=== PATIENT | male | born 1945 | race Caucasian/White ===

== ENCOUNTER 2017-11-15 19:12 | Inpatient (IN) | payer MEDICARE, BC ==
[2017-11-15] MEDS ORDERED: RX INFO: IV CONTRAST WAS GIVEN 1 EACH MISC MISCELLANE PRN (19:45)
[2017-11-15] MEDS ORDERED: SODIUM CHLORIDE 0.9% 500 ML IV STA (19:45)
[2017-11-15 19:59] LABS: Basophils # (A) 0.1 k/uL (0-0.2); Basophils % (A) 1 %; Eosinophils # (A) 0.3 k/uL (0-0.7); Eosinophils % (A) 2 %; HCT 46.3 % (39.0-53.0); HGB 16.4 gm/dL (13.0-17.5); Lymphocytes # (A) 2.6 k/uL (1.0-4.8); Lymphocytes % (A) 18 %; MCH 31.2 pg (25.0-35.0); MCHC 35.4 g/dL (31.0-37.0); Mean Platelet Volume 7.1; Monocytes # (A) 0.6 k/uL (0-1.0); Monocytes % (A) 4 %; Neutrophils # (A) 11.1 k/uL (1.3-7.7); Neutrophils % (A) 75 %; Platelet Count 210 k/uL (150-450); RBC 5.27 m/uL (4.30-5.90); RDW 13.3 % (11.5-15.5); WBC 14.9 k/uL (3.8-10.6)
[2017-11-15 20:08] LABS: Albumin 4.7 g/dL (3.5-5.0); Calcium 10.2 mg/dL (8.4-10.2); Potassium 4.4 mmol/L (3.5-5.1); Total Bilirubin 0.6 mg/dL (0.2-1.3)
[2017-11-15] MEDS ORDERED: ONDANSETRON 4 MG/2 ML VIAL IVP STA (20:12)
[2017-11-15] MEDS ORDERED: MORPHINE SULFATE 4 MG/ML SYRINGE IVP STA ×2 (20:12→21:18)
[2017-11-15 20:20] LABS: INR 1.1 (<1.2); Partial Thromboplastin Time 23.2 sec (22.0-30.0); Prothrombin Time 10.7 sec (9.0-12.0)
--- NOTE | 2017-11-15 20:27 | ED ---
Abdominal Pain HPI - General Source: patient, RN notes reviewed Mode of arrival: wheelchair Limitations: no limitations <Lencho Briones - Last Filed: 11/15/17 21:31> <Nicolas Doshi - Last Filed: 11/16/17 06:53> - General Chief Complaint: Abdominal Pain Stated Complaint: Abd Pain Time Seen by Provider: 11/15/17 19:38 - History of Present Illness Initial Comments: This a 71-year-old male presents emergency Department chief complaint abdominal pain. Patient states pain started around 2:30 this afternoon. Patient states it's in his mid abdomen is sharp and pressure-like in nature. Patient does admit that he has a history of diverticulitis but this pain feels different. Patient states that he normally has lower abdominal discomfort. Denies any diarrhea, constipation does not to some nausea no vomiting. He denies any associated dysuria, hematuria or increased frequency urination. He has had prior kidney surgery, appendectomy. Patient denies chest pain, shortness breath , fever, chills, headache or dizziness. He states nothing seems to improve his symptoms at this time. He did not try taking any medication from his normal. Patient states he does take Percocet for right foot pain secondary to surgery. ( Lencho Briones) - Related Data Home Medications Medication Instructions Recorded Confirmed Aspirin EC [Ecotrin Low Dose] 81 mg PO DAILY 01/19/16 11/15/17 Atorvastatin [Lipitor] 40 mg PO DAILY 01/19/16 11/15/17 B Complex-Vit C-Vit E-Zinc [Z-Bec] 1 tab PO DAILY 01/19/16 11/15/17 Clopidogrel [Plavix] 75 mg PO MOWEFR 01/19/16 11/15/17 Furosemide [Lasix] 60 mg PO DAILY 01/19/16 11/15/17 Gemfibrozil [Lopid] 600 mg PO BID 01/19/16 11/15/17 Insulin Aspart [NovoLOG 20 units SQ AC-BID 01/19/16 11/15/17 (formulary)] Insulin Glargine [Lantus] 70 units SQ DAILY 01/19/16 11/15/17 Isosorbide Mononitrate ER [Imdur] 30 mg PO DAILY 01/19/16 11/15/17 Lisinopril [Zestril] 5 mg PO DAILY 01/19/16 11/15/17 Metoprolol Tartrate [Lopressor] 25 mg PO BID 01/19/16 11/15/17 Multivitamins, Thera [Multivitamin 1 tab PO DAILY 01/19/16 11/15/17 (formulary)] Zolpidem [Ambien] 10 mg PO HS 01/19/16 11/15/17 metFORMIN HCL [Glucophage] 500 mg PO HS 01/19/16 11/15/17 traZODone HCL [Desyrel] 100 mg PO HS 01/19/16 11/15/17 Allopurinol [Zyloprim] 100 mg PO DAILY 11/15/17 11/15/17 Citalopram Hydrobromide [CeleXA] 40 mg PO DAILY 11/15/17 11/15/17 Allergies Allergy/AdvReac Type Severity Reaction Status Date / Time ciprofloxacin [From Cipro] Allergy Unknown Verified 11/15/17 19:43 ciprofloxacin HCl Allergy Unknown Verified 11/15/17 19:43 [From Cipro] ezetimibe [From Vytorin] Allergy Unknown Verified 11/15/17 19:43 indomethacin [From Indocin] Allergy Unknown Verified 11/15/17 19:43 indomethacin sodium Allergy Unknown Verified 11/15/17 19:43 [From Indocin] lamotrigine [From Lamictal] Allergy Unknown Verified 11/15/17 19:43 simvastatin [From Vytorin] Allergy Unknown Verified 11/15/17 19:43 Review of Systems ROS Other: All systems not noted in ROS Statement are negative. <Lencho Briones - Last Filed: 11/15/17 21:31> ROS Other: All systems not noted in ROS Statement are negative. <Nicolas Doshi - Last Filed: 11/16/17 06:53> ROS Statement: Those systems with pertinent positive or pertinent negative responses have been documented in the HPI. Past Medical History Past Medical History: Coronary Artery Disease (CAD), Chest Pain / Angina, Diabetes Mellitus, Hyperlipidemia, Hypertension, Seizure Disorder Additional Past Medical History / Comment(s): IDDM, last grand mal seizure 2003 , epistaxis. History of Any Multi-Drug Resistant Organisms: None Reported Past Surgical History: Appendectomy, Coronary Bypass/CABG, Heart Catheterization With Stent Additional Past Surgical History / Comment(s): PCI with stents (pt thinks 2 total stents) with last stent placed 03/13/14, angioplasties x 3, 02/19/07 CABG-4 vessel, colonoscopy-normal. Past Anesthesia/Blood Transfusion Reactions: No Reported Reaction Date of Last Stent Placement:: 03/13/14 Past Psychological History: No Psychological Hx Reported Smoking Status: Former smoker Past Alcohol Use History: None Reported Past Drug Use History: None Reported - Past Family History Father Family Medical History: Cancer Additional Family Medical History / Comment(s): Father of leukemia at the age of 67 yrs. Mother Family Medical History: Cancer, Dementia Additional Family Medical History / Comment(s): Mother had retinal cancer. She of dementia at the age of 89yrs. <Lencho Briones - Last Filed: 11/15/17 21:31> General Exam Limitations: no limitations General appearance: alert, in no apparent distress Head exam: Present: atraumatic, normocephalic, normal inspection Eye exam: Present: normal appearance, PERRL, EOMI. Absent: scleral icterus, conjunctival injection, periorbital swelling Neck exam: Present: normal inspection. Absent: tenderness, meningismus, lymphadenopathy Respiratory exam: Present: normal lung sounds bilaterally. Absent: respiratory distress, wheezes, rales, rhonchi, stridor Cardiovascular Exam: Present: regular rate, normal rhythm, normal heart sounds. Absent: systolic murmur, diastolic murmur, rubs, gallop, clicks GI/Abdominal exam: Present: soft, tenderness, normal bowel sounds. Absent: distended, guarding, rebound, rigid Back exam: Absent: CVA tenderness (R), CVA tenderness (L) Skin exam: Present: warm, dry, intact, normal color. Absent: rash <Lencho Briones - Last Filed: 11/15/17 21:31> Vital Signs 11/15/17 11/15/17 19:19 21:44 Temperature 97.7 F Pulse Rate 59 L 54 L Respiratory 16 18 Rate Blood Pressure 188/96 166/70 O2 Sat by Pulse 97 96 Oximetry Medical Decision Making - Lab Data Result diagrams: 11/15/17 19:49 11/15/17 19:49 <Lencho Briones - Last Filed: 11/15/17 21:31> - Lab Data Result diagrams: 11/15/17 19:49 11/15/17 19:49 <Nicolas Doshi - Last Filed: 11/16/17 06:53> - Medical Decision Making 71-year-old male present emergency department for abdominal pain that started today. Patient CT is consistent with partial small bowel obstruction. Patient had minimal improvement with first dose of morphine. Patient will be admitted at this time no current vomiting. Patient lab work reviewed and mild leukocytosis noted. (Lencho Briones) I saw this patient in conjunction with the physician product development assistant. I performed independent history and physical exam. Agree with case management. (Nicolas Doshi) - Lab Data Lab Results 11/15/17 11/15/17 11/15/17 Range/Units 19:49 19:49 19:49 WBC 14.9 H (3.8-10.6) k/uL RBC 5.27 (4.30-5.90) m/uL Hgb 16.4 (13.0-17.5) gm/dL Hct 46.3 (39.0-53.0) % MCV 88.0 (80.0-100.0) fL MCH 31.2 (25.0-35.0) pg MCHC 35.4 (31.0-37.0) g/dL RDW 13.3 (11.5-15.5) % Plt Count 210 (150-450) k/uL Neutrophils % 75 % Lymphocytes % 18 % Monocytes % 4 % Eosinophils % 2 % Basophils % 1 % Neutrophils # 11.1 H (1.3-7.7) k/uL Lymphocytes # 2.6 (1.0-4.8) k/uL Monocytes # 0.6 (0-1.0) k/uL Eosinophils # 0.3 (0-0.7) k/uL Basophils # 0.1 (0-0.2) k/uL PT 10.7 (9.0-12.0) sec INR 1.1 (<1.2) APTT 23.2 (22.0-30.0) sec Sodium 144 (137-145) mmol/L Potassium 4.4 (3.5-5.1) mmol/L Chloride 102 (98-107) mmol/L Carbon Dioxide 28 (22-30) mmol/L Anion Gap 14 mmol/L BUN 36 H (9-20) mg/dL Creatinine 1.10 (0.66-1.25) mg/dL Est GFR (CKD-EPI)AfAm 77 (>60 ml/min/1.73 sqM) Est GFR (CKD-EPI)NonAf 67 (>60 ml/min/1.73 sqM) Glucose 189 H (74-99) mg/dL Plasma Lactic Acid Satinder (0.7-2.0) mmol/L Calcium 10.2 (8.4-10.2) mg/dL Total Bilirubin 0.6 (0.2-1.3) mg/dL AST 53 (17-59) U/L ALT 57 (21-72) U/L Alkaline Phosphatase 76 (38-126) U/L Total Protein 8.0 (6.3-8.2) g/dL Albumin 4.7 (3.5-5.0) g/dL Amylase 53 (30-110) U/L Lipase 115 (23-300) U/L Urine Color Urine Appearance (Clear) Urine pH (5.0-8.0) Ur Specific [place] (1.001-1.035) Urine Protein (Negative) Urine Glucose (UA) (Negative) Urine Ketones (Negative) Urine Blood (Negative) Urine Nitrite (Negative) Urine Bilirubin (Negative) Urine Urobilinogen (<2.0) mg/dL Ur Leukocyte Esterase (Negative) Urine RBC (0-5) /hpf Urine Bacteria (None) /hpf Hyaline Casts (0-2) /lpf 11/15/17 11/15/17 Range/Units 20:13 20:13 WBC (3.8-10.6) k/uL RBC (4.30-5.90) m/uL Hgb (13.0-17.5) gm/dL Hct (39.0-53.0) % MCV (80.0-100.0) fL MCH (25.0-35.0) pg MCHC (31.0-37.0) g/dL RDW (11.5-15.5) % Plt Count (150-450) k/uL Neutrophils % % Lymphocytes % % Monocytes % % Eosinophils % % Basophils % % Neutrophils # (1.3-7.7) k/uL Lymphocytes # (1.0-4.8) k/uL Monocytes # (0-1.0) k/uL Eosinophils # (0-0.7) k/uL Basophils # (0-0.2) k/uL PT (9.0-12.0) sec INR (<1.2) APTT (22.0-30.0) sec Sodium (137-145) mmol/L Potassium (3.5-5.1) mmol/L Chloride (98-107) mmol/L Carbon Dioxide (22-30) mmol/L Anion Gap mmol/L BUN (9-20) mg/dL Creatinine (0.66-1.25) mg/dL Est GFR (CKD-EPI)AfAm (>60 ml/min/1.73 sqM) Est GFR (CKD-EPI)NonAf (>60 ml/min/1.73 sqM) Glucose (74-99) mg/dL Plasma Lactic Acid Satinder 1.8 (0.7-2.0) mmol/L Calcium (8.4-10.2) mg/dL Total Bilirubin (0.2-1.3) mg/dL AST (17-59) U/L ALT (21-72) U/L Alkaline Phosphatase (38-126) U/L Total Protein (6.3-8.2) g/dL Albumin (3.5-5.0) g/dL Amylase (30-110) U/L Lipase (23-300) U/L Urine Color Yellow Urine Appearance Clear (Clear) Urine pH 5.5 (5.0-8.0) Ur Specific [place] 1.009 (1.001-1.035) Urine Protein 1+ H (Negative) Urine Glucose (UA) Negative (Negative) Urine Ketones Negative (Negative) Urine Blood Negative (Negative) Urine Nitrite Negative (Negative) Urine Bilirubin Negative (Negative) Urine Urobilinogen <2.0 (<2.0) mg/dL Ur Leukocyte Esterase Negative (Negative) Urine RBC <1 (0-5) /hpf Urine Bacteria Rare H (None) /hpf Hyaline Casts 5 H (0-2) /lpf Disposition Time of Disposition: 21:27 <Lencho Briones - Last Filed: 11/15/17 21:31> <Nicolas Doshi - Last Filed: 11/16/17 06:53> Clinical Impression: Partial small bowel obstruction, Abdominal pain Disposition: ADMITTED IP TO THIS [facility] Condition: Stable
[2017-11-15 20:29] LABS: Appearance,Urine Clear (Clear); Bacteria,Urine Rare /hpf; Bilirubin,Urine Negative (Negative); Blood,Urine Negative (Negative); Color,Urine Yellow; Glucose,Urine (UA) Negative (Negative); Hyaline Casts,Urine 5 /lpf (0-2); Ketones,Urine Negative (Negative); Leukocyte Esterase,Urine Negative (Negative); Nitrite,Urine Negative (Negative); PH, Urine 5.5 (5.0-8.0); Protein,Urine 1+ (Negative); RBC,Urine <1 /hpf (0-5); Specific Gravity,Urine 1.009 (1.001-1.035); Urobilinogen,Urine <2.0 mg/dL (<2.0)
--- NOTE | 2017-11-15 21:07 | CT ---
EXAMINATION TYPE: CT abdomen pelvis w con DATE OF EXAM: 11/15/2017 COMPARISON: NONE HISTORY: Abd pain and nausea. CT DLP: 1570 mGycm, Automated Exposure Control for Dose Reduction was Utilized. CONTRAST: CT scan of the abdomen and pelvis is performed without oral but with IV Contrast, patient injected wi th 100ml mL of Omnipaque 300. FINDINGS: LUNG BASES: There is dense coronary artery calcification and/or stent in the RCA distribution. There is calcification at the level of mitral valve. LIVER/GB: Liver is diffusely low dense consistent with fatty infiltration. Contracted gallbladder is present. PANCREAS: No significant abnormality is seen. SPLEEN: No significant abnormality is seen. ADRENALS: No significant abnormality is seen. KIDNEYS: There is simple appearing 2.1 cm cyst anteriorly upper pole of the right kidney. There is re troaortic left renal vein which is normal variant BOWEL: Evaluation of bowel is suboptimal secondary to lack of enteric contrast. There is no suspiciou s dilatation of stomach or duodenal sweep. There are fluid-filled prominent small bowel loops in the left midabdomen. Bowel loops are mildly dilated up to 3.0 cm. There are small bowel feces sign in the midabdomen. There is gradual transition to nondistended small bowel loops in the right lower quadran t. Surgical sutures from appendectomy are seen at this level. Fecal material is seen in nondistended colon. There are diverticula in the sigmoid colon. There is no convincing evidence for acute divertic ulitis. There is mild haziness in the vasa recta of the left mid to upper abdomen. PROSTATE/SEMINAL VESICLES: Seminal vesicles are lobulated and slightly prominent bilaterally. A few s cattered pelvic phleboliths are seen. LYMPH NODES: No greater than 1cm abdominal or pelvic lymph nodes are appreciated. OSSEOUS STRUCTURES: There is mild multilevel spurring in the spine. OTHER: There is fairly severe atherosclerotic change of the infrarenal abdominal aorta extending into branch vessels IMPRESSION: CT findings are consistent with partial mid small bowel obstruction as there are prominen t and slightly dilated jejunal loops in the left abdomen with small bowel feces sign. No suspicious s tomach or duodenal dilatation currently.
[2017-11-15] MEDS ORDERED: NALOXONE 0.4 MG/ML 1 ML VIAL IV PRN (21:28)
[2017-11-15] MEDS ORDERED: MORPHINE SULFATE 4 MG/ML SYRINGE IV PRN (21:28)
[2017-11-15] MEDS: SODIUM CHLORIDE 0.9% 1,000 ML IV SCH (21:46)
[2017-11-15] MEDS ORDERED: LIDOCAINE URO-JET JELLY 2% 5 ML KIT URETHRAL ONE (22:24)
[2017-11-16 00:42] VITALS: BMI 32.5
[2017-11-16] MEDS ORDERED: MD COMMUNICATION TO PHARMACY 1 EACH MISC PO PRN (00:47)
[2017-11-16] MEDS ORDERED: HYDROmorphone 0.5 MG/0.5 ML SYRINGE IVP ONE (01:00)
[2017-11-16] MEDS: ONDANSETRON 4 MG/2 ML VIAL IVP PRN ×2 (02:14→14:52)
[2017-11-16] MEDS ORDERED: ACETAMINOPHEN IV (For NPO) 1,000 MG in EMPTY BAG 1 BAG IVPB STA ×2 (02:24→02:44)
[2017-11-16] MEDS: MORPHINE SULFATE 4 MG/ML SYRINGE IV PRN ×2 (02:47→20:38)
[2017-11-16 05:22] LABS: Glucose,Whole Blood 151 mg/dL (75-99)
[2017-11-16] MEDS: PANTOPRAZOLE 40 MG/10 ML VIAL IV SCH (07:57)
[2017-11-16] MEDS ORDERED: metroNIDAZOLE-NS PMX 500 MG in SALINE 100 100ML.BAG IVPB ONE (09:47)
[2017-11-16] MEDS ORDERED: ceFAZolin IN SWFI 2 GM/20 ML SYRINGE IVP ONE (09:47)
--- NOTE | 2017-11-16 09:47 | P.GSCN ---
History of Present Illness Consult date: 11/16/17 Reason for Consult: Small bowel obstruction History of present illness: The patient's a 71-year-old man who had a sudden onset of pain yesterday afternoon. He's never had anything like this in the past. He's had some episodes of diverticulitis but this is different. He's had nausea and dry heaves. He had an NG tube placed in the emergency department and does not feel any better. Complaining of diffuse abdominal pain. His previous abdominal surgeries include a open appendectomy and a repair of a incisional hernia. He has some occasional constipation. Denies diarrhea. Denies blood in the stools or dark tarry stools. Review of Systems All systems: negative - Musculoskeletal Musculoskeleta Comment(s): Had recent right foot surgery and is nonweightbearing until Monday Past Medical History Past Medical History: Coronary Artery Disease (CAD), Chest Pain / Angina, Diabetes Mellitus, Hyperlipidemia, Hypertension, Seizure Disorder Additional Past Medical History / Comment(s): IDDM, last grand mal seizure 2003 , epistaxis. History of Any Multi-Drug Resistant Organisms: None Reported Past Surgical History: Appendectomy, Coronary Bypass/CABG, Heart Catheterization With Stent Additional Past Surgical History / Comment(s): PCI with stents (pt thinks 2 total stents) with last stent placed 03/13/14, angioplasties x 3, 02/19/07 CABG-4 vessel, colonoscopy-normal. Past Anesthesia/Blood Transfusion Reactions: No Reported Reaction Date of Last Stent Placement:: 03/13/14 Past Psychological History: No Psychological Hx Reported Additional Psychological History / Comment(s): Pt resides with his spouse. He uses no assistive device. He drives. Smoking Status: Former smoker Past Alcohol Use History: None Reported Additional Past Alcohol Use History / Comment(s): Pt states he quit smoking in 2003. He had started smoking in 1965. Past Drug Use History: None Reported - Past Family History Father Family Medical History: Cancer Additional Family Medical History / Comment(s): Father of leukemia at the age of 67 yrs. Mother Family Medical History: Cancer, Dementia Additional Family Medical History / Comment(s): Mother had retinal cancer. She of dementia at the age of 89yrs. Medications and Allergies Home Medications Medication Instructions Recorded Confirmed Type Aspirin EC [Ecotrin Low Dose] 81 mg PO DAILY 01/19/16 11/15/17 History Atorvastatin [Lipitor] 40 mg PO DAILY 01/19/16 11/15/17 History B Complex-Vit C-Vit E-Zinc [Z-Bec] 1 tab PO DAILY 01/19/16 11/15/17 History Clopidogrel [Plavix] 75 mg PO MOWEFR 01/19/16 11/15/17 History Furosemide [Lasix] 60 mg PO DAILY 01/19/16 11/15/17 History Gemfibrozil [Lopid] 600 mg PO BID 01/19/16 11/15/17 History Insulin Aspart [NovoLOG 20 units SQ AC-BID 01/19/16 11/15/17 History (formulary)] Insulin Glargine [Lantus] 70 units SQ DAILY 01/19/16 11/15/17 History Isosorbide Mononitrate ER [Imdur] 30 mg PO DAILY 01/19/16 11/15/17 History Lisinopril [Zestril] 5 mg PO DAILY 01/19/16 11/15/17 History Metoprolol Tartrate [Lopressor] 25 mg PO BID 01/19/16 11/15/17 History Multivitamins, Thera [Multivitamin 1 tab PO DAILY 01/19/16 11/15/17 History (formulary)] Zolpidem [Ambien] 10 mg PO HS 01/19/16 11/15/17 History metFORMIN HCL [Glucophage] 500 mg PO HS 01/19/16 11/15/17 History traZODone HCL [Desyrel] 100 mg PO HS 01/19/16 11/15/17 History Allopurinol [Zyloprim] 100 mg PO DAILY 11/15/17 11/15/17 History Citalopram Hydrobromide [CeleXA] 40 mg PO DAILY 11/15/17 11/15/17 History Allergies Allergy/AdvReac Type Severity Reaction Status Date / Time ciprofloxacin [From Cipro] Allergy Unknown Verified 11/15/17 19:43 ciprofloxacin HCl Allergy Unknown Verified 11/15/17 19:43 [From Cipro] ezetimibe [From Vytorin] Allergy Unknown Verified 11/15/17 19:43 indomethacin [From Indocin] Allergy Unknown Verified 11/15/17 19:43 indomethacin sodium Allergy Unknown Verified 11/15/17 19:43 [From Indocin] lamotrigine [From Lamictal] Allergy Unknown Verified 11/15/17 19:43 simvastatin [From Vytorin] Allergy Unknown Verified 11/15/17 19:43 Surgical - Exam Osteopathic Statement: *. No significant issues noted on an osteopathic structural exam other than those noted in the History and Physical/Consult. Vital Signs Temp Pulse Resp BP Pulse Ox 97.7 F 59 L 16 188/96 97 11/15/17 19:19 11/15/17 19:19 11/15/17 19:19 11/15/17 19:19 11/15/17 19:19 - General Appears uncomfortable well developed, well nourished - Eyes normal ocular movement - ENT normal mucosa - Neck trachea midline lymphadenopathy: absent - Respiratory normal respiratory effort, clear to auscultation - Cardiovascular Rhythm: regular - Abdomen Abdomen: tender (Diffuse tenderness), guarding (Mild generalized voluntary guarding), no rebound, distended (Tympanitic) - Musculoskeletal Scar on his right foot which is healing well Results - Labs 11/15/17 19:49 11/15/17 19:49 Abnormal Lab Results - Last 24 Hours (Table) 11/15/17 11/15/17 11/15/17 Range/Units 19:49 19:49 20:13 WBC 14.9 H (3.8-10.6) k/uL Neutrophils # 11.1 H (1.3-7.7) k/uL BUN 36 H (9-20) mg/dL Glucose 189 H (74-99) mg/dL POC Glucose (mg/dL) (75-99) mg/dL Urine Protein 1+ H (Negative) Urine Bacteria Rare H (None) /hpf Hyaline Casts 5 H (0-2) /lpf 11/16/17 Range/Units 04:59 WBC (3.8-10.6) k/uL Neutrophils # (1.3-7.7) k/uL BUN (9-20) mg/dL Glucose (74-99) mg/dL POC Glucose (mg/dL) 151 H (75-99) mg/dL Urine Protein (Negative) Urine Bacteria (None) /hpf Hyaline Casts (0-2) /lpf Diabetes panel 11/15/17 Range/Units 19:49 Sodium 144 (137-145) mmol/L Potassium 4.4 (3.5-5.1) mmol/L Chloride 102 (98-107) mmol/L Carbon Dioxide 28 (22-30) mmol/L BUN 36 H (9-20) mg/dL Creatinine 1.10 (0.66-1.25) mg/dL Glucose 189 H (74-99) mg/dL Calcium 10.2 (8.4-10.2) mg/dL AST 53 (17-59) U/L ALT 57 (21-72) U/L Alkaline Phosphatase 76 (38-126) U/L Total Protein 8.0 (6.3-8.2) g/dL Albumin 4.7 (3.5-5.0) g/dL Calcium panel 11/15/17 Range/Units 19:49 Calcium 10.2 (8.4-10.2) mg/dL Albumin 4.7 (3.5-5.0) g/dL Pituitary panel 11/15/17 Range/Units 19:49 Sodium 144 (137-145) mmol/L Potassium 4.4 (3.5-5.1) mmol/L Chloride 102 (98-107) mmol/L Carbon Dioxide 28 (22-30) mmol/L BUN 36 H (9-20) mg/dL Creatinine 1.10 (0.66-1.25) mg/dL Glucose 189 H (74-99) mg/dL Calcium 10.2 (8.4-10.2) mg/dL Adrenal panel 11/15/17 Range/Units 19:49 Sodium 144 (137-145) mmol/L Potassium 4.4 (3.5-5.1) mmol/L Chloride 102 (98-107) mmol/L Carbon Dioxide 28 (22-30) mmol/L BUN 36 H (9-20) mg/dL Creatinine 1.10 (0.66-1.25) mg/dL Glucose 189 H (74-99) mg/dL Calcium 10.2 (8.4-10.2) mg/dL Total Bilirubin 0.6 (0.2-1.3) mg/dL AST 53 (17-59) U/L ALT 57 (21-72) U/L Alkaline Phosphatase 76 (38-126) U/L Total Protein 8.0 (6.3-8.2) g/dL Albumin 4.7 (3.5-5.0) g/dL - Imaging CT scan - abdomen: report reviewed, image reviewed Assessment and Plan (1) Small bowel obstruction Current Visit: Yes Status: Acute Code(s): K56.609 - UNSP INTESTNL OBST, UNSP TO PARTIAL VERSUS COMPLETE OBST SNOMED Code(s): 487575582 (2) Abdominal pain Current Visit: Yes Status: Acute Code(s): R10.9 - UNSPECIFIED ABDOMINAL PAIN SNOMED Code(s): 74880694 (3) Platelet dysfunction due to drugs Current Visit: Yes Status: Acute Code(s): D69.59 - OTHER SECONDARY THROMBOCYTOPENIA; T50.905A - ADVERSE EFFECT OF UNSP DRUG/MEDS/BIOL SUBST, INIT SNOMED Code(s): 97100935 (4) History of coronary artery disease Current Visit: Yes Status: Acute Code(s): Z86.79 - PERSONAL HISTORY OF OTHER DISEASES OF THE CIRCULATORY SYSTEM SNOMED Code(s): 143430969 (5) Diabetes Current Visit: Yes Status: Acute Code(s): E11.9 - TYPE 2 DIABETES MELLITUS WITHOUT COMPLICATIONS SNOMED Code(s): 98703499 (6) Seizure disorder Current Visit: Yes Status: Acute Code(s): G40.909 - EPILEPSY, UNSP, NOT INTRACTABLE, WITHOUT STATUS EPILEPTICUS SNOMED Code(s): 693375164 Plan: The patient has significant abdominal discomfort and has had no relief with the NG tube. Therefore I feel he needs to go to the OR for exploratory laparotomy. We will give him platelets due to platelet dysfunction from him taking the Plavix and aspirin. The procedure risk and complications were discussed. Questions were encouraged and answered. We'll do that for him today.
[2017-11-16] MEDS ORDERED: INSULIN ASPART 100 UNIT/ML 1 ML 10 ML VIAL SQ SCH (10:00)
--- NOTE | 2017-11-16 10:13 | XR ---
EXAMINATION TYPE: XR chest 1V portable DATE OF EXAM: 11/16/2017 COMPARISON: Prior chest x-ray 01/19/2016 HISTORY: Preop clearance TECHNIQUE: Single frontal view of the chest is obtained. FINDINGS: Patient is rotated and post median sternotomy. Heart size is likely stable. For difference s in technique. NG tube has been placed in the interval, distal tip is overlying the stomach. No evid ent airspace disease, pneumothorax, or pleural effusion. IMPRESSION: No acute process.
[2017-11-16 11:59] LABS: Glucose,Whole Blood 156 mg/dL (75-99)
[2017-11-16] MEDS ORDERED: IV FLUID CONTINUATION 1,000 ML IV ONE (14:35)
[2017-11-16] MEDS ORDERED: ROCURONIUM BROMIDE 10 MG/ML 10 ML VIAL IV ONE (16:53)
[2017-11-16] MEDS ORDERED: fentaNYL (PF) 50 MCG/ML 2 ML AMP ONE (16:53)
[2017-11-16] MEDS ORDERED: NEOSTIGMINE 1 MG/ML 10 ML VIAL ONE (16:53)
[2017-11-16] MEDS ORDERED: MORPHINE SULFATE 10 MG/ML SYRINGE ONE (16:53)
[2017-11-16] MEDS ORDERED: ETOMIDATE 2 MG/ML 10 ML VIAL ONE (16:53)
[2017-11-16] MEDS ORDERED: MIDAZOLAM 2 MG/2 ML VIAL ONE (16:53)
[2017-11-16] MEDS ORDERED: GLYCOPYRROLATE 0.2 MG/ML 2 ML VIAL ONE (16:53)
[2017-11-16] MEDS ORDERED: METOPROLOL TARTRATE 5 MG/5 ML VIAL IVP ONE (16:53)
[2017-11-16] MEDS ORDERED: SUCCINYLCHOLINE CHLORIDE 100 MG/5 ML SYR IV ONE (16:53)
[2017-11-16] MEDS ORDERED: LIDOCAINE 1%-EPI 1:100,000 30 ML VIAL SQ ONE (17:17)
[2017-11-16] MEDS ORDERED: BUPIVACAINE (PF) 0.5% 30 ML VIAL SQ ONE (17:18)
[2017-11-16] MEDS ORDERED: LACTATED RINGERS 1,000 ML IV ONE (17:19)
[2017-11-16] MEDS: INSULIN ASPART 100 UNIT/ML 1 ML 10 ML VIAL SQ SCH ×2 (17:43→20:50)
--- NOTE | 2017-11-16 17:44 | HP ---
HISTORY AND PHYSICAL CHIEF COMPLAINT: Abdominal pain and vomiting. HISTORY OF PRESENT ILLNESS: This 71-year-old gentleman with a past medical history of multiple medical issues with CAD, history of diabetes, hypertension, hyperlipidemia, seizure disorder, history of CAD, CABG and stent being followed by in the outpatient setting was admitted to [facility] with complaints of abdominal pain. The pain was sharp and pressure like type of pain. The patient had history of diverticulitis and previous abdominal surgery also. Because of lack of improvement in pain, patient came to [facility] and was admitted for evaluation and treatment. NG suction was noted. Despite NG suction, the pain did not improved. Dr. Almaraz evaluated the patient and planned for surgery at this time. There is no history of fever, rigors. No history of headache, loss of consciousness or seizures. The previous appears to be excellent. PAST MEDICAL HISTORY: CAD, history of diabetes mellitus type 2, hypertension, hyperlipidemia, seizure disorder, history [place] seizures, CAD, CABG, stent. MEDICATIONS: Prior to admission home medications are: 1. Ambien 10 mg q.h.s. 2. Celexa 40 mg p.o. daily. 3. Desyrel 100 mg p.o. q.h.s. 4. Multivitamins 1 p.o. daily. 5. Lantus 70 units subcu daily. 6. NovoLog 20 units a.c. b.i.d. 7. Lasix 60 mg p.o. daily. 8. Glucophage 500 mg b.i.d. 9. Lopressor 25 mg b.i.d. 10.Zestril 5 mg p.o. daily. 11.Imdur 30 mg p.o. 12.Lopid 600 mg p.o. b.i.d. 13.Plavix 75 mg Monday, Monday and Monday. 14.Zyloprim 100 mg p.o. daily. 16.Lipitor 40 mg. 17.Ecotrin 81 mg p.o. daily. ALLERGIES: CIPRO, VYTORIN, INDOCIN, LAMICTAL. SOCIAL HISTORY: History of smoking. No history of current smoking or alcohol intake. FAMILY HISTORY: Leukemia in the family. REVIEW OF SYSTEMS: ENT: No diminished hearing or vision. CARDIOVASCULAR: No angina. RESPIRATORY: No cough or hemoptysis. GI: As mentioned earlier. : No dysuria. NERVOUS SYSTEM: No numbness, weakness. ALLERGY/IMMUNOLOGY: No history of asthma. MUSCULOSKELETAL: As mentioned earlier. HEMATOLOGY: No history of anemia. ENDOCRINE: Diabetes. CONSTITUTIONAL: As mentioned. DERMATOLOGY: Negative. RHEUMATOLOGY: Negative. PSYCHIATRY: As mentioned earlier. PHYSICAL EXAMINATION: Alert and oriented x3. Pulse is 65, blood pressure 172/73, respiration 17, temperature 98.2, pulse ox 98% on room air. HEENT: Conjunctivae normal. Oral mucosa moist. NECK: No jugular venous distention. No carotid bruit. No lymph node enlargement. CARDIOVASCULAR: S1, S2 muffled. No S3, no S4. RESPIRATORY: Breath sounds diminished in the bases. No rhonchi. No crackles. ABDOMEN: Soft, mild diffuse distention. Mild diffuse tenderness. No guarding. No rigidity. No mass palpable. Bowel sounds diminished. NG tube in situ. LEGS: No edema, no swelling. NERVOUS SYSTEM: Higher functions as mentioned earlier. Moves all four limbs. No focal motor deficits. LYMPHATICS: No lymphadenopathy in the neck, axillae, groin.. SKIN: No ulcer, rashes or bleeding. LAB: CBC within normal limits. ASSESSMENT: 1. History of coronary artery disease, CABG, stent history. 2. Diabetes mellitus type 2. 3. Hypertension. 4. Hyperlipidemia. 5. History of seizure disorder. 6. History of epistaxis. 7. History of appendectomy. 8. Remote history of nicotine dependence. RECOMMENDATIONS AND DISCUSSION: This 71-year-old gentleman who presented with multiple complex medical issues, we will monitor the patient closely. Continue the current management, and symptomatic treatment. I recommend resume the home medications. The patient cleared for surgery at this time. Cardiology consultation also has been sought. Otherwise continue with antiplatelet and other medication after surgery. We will monitor the patient closely. Thank you for letting us participate in this patient. MMODL / IJN: [id number] / MTDD
[2017-11-16] MEDS ORDERED: METOCLOPRAMIDE 5 MG/ML 2 ML VIAL IVP PRN (17:59)
--- NOTE | 2017-11-16 17:59 | P.OP ---
Date of Procedure: 11/16/17 Preoperative Diagnosis: Abdominal pain, small bowel obstruction Postoperative Diagnosis: Same Procedure(s) Performed: Exploratory laparotomy Anesthesia: MINI Surgeon: Gay Almaraz Estimated Blood Loss (ml): 50 Pathology: none sent Condition: stable Disposition: PACU Indications for Procedure: The patient presented with sudden onset of abdominal pain and a computed tomography scan suggestive of a small bowel obstruction. He was no better after overnight decompression, hydration, pain control Operative Findings: The mid small bowel has a section that looks red and edematous. This area looks consistent with a small bowel obstruction. It did appear that there was a line were abandoned had been constricting the bowel. At this time however the obstruction had resolved. The bowel proximal and distal to this was normal. The stomach and colon was unremarkable. There was some mild edema of the mesentery which would be consistent with a recent obstruction. There was good pulsatile flow in the mesenteric arcade.. No evidence of any venous thrombosis. The liver, diaphragm, gallbladder were unremarkable. No evidence of significant free fluid or inflammatory exudate was seen Description of Procedure: The patient's taken the operative suite where he is prepped and draped in the usual sterile manner under general endotracheal anesthetic. Local anesthetic with epinephrine was instilled in the skin and subcutaneous tissue on the anterior abdominal wall. The abdomen was then entered through a midline incision. Small bleeding points were controlled with electrocautery. The small bowel was then brought up through the incision. It's run from the ligament of Treitz distally. It's then run distally to proximally. Findings of a spontaneously resolved small bowel obstruction were seen. The rest of the colon was run, the stomach, liver, spleen or examined. The small bowel was then allowed to lay in gentle loops. It was covered with the omentum. The fashion peritoneum were closed with 1 PDS. The skin was closed with homero. He was taken recovery room in satisfactory condition. According to or personnel , WERE correct.
[2017-11-16] MEDS ORDERED: NALOXONE 0.4 MG/ML 1 ML VIAL IV PRN ×3 (18:01→21:30)
[2017-11-16] MEDS: MORPHINE SULFATE 4 MG/ML SYRINGE IVP ONE ×4 (18:37→18:55)
[2017-11-16 18:50] LABS: Glucose,Whole Blood 157 mg/dL (75-99)
[2017-11-16] MEDS: fentaNYL (PF) 50 MCG/ML 2 ML AMP IVP ONE ×2 (18:59→19:09)
[2017-11-16 20:22] LABS: Hemoglobin A1C 6.5 % (4.0-6.0)
[2017-11-16 21:04] LABS: Glucose,Whole Blood 144 mg/dL (75-99)
[2017-11-16] MEDS: SODIUM CHLORIDE 0.9% 1,000 ML IV SCH (21:53)
[2017-11-16] MEDS: MORPHINE PCA 30 MG/30 ML SYRINGE IV PRN (21:54)
[2017-11-17 00:40] LABS: Glucose,Whole Blood 164 mg/dL (75-99)
[2017-11-17] MEDS: INSULIN ASPART 100 UNIT/ML 1 ML 10 ML VIAL SQ SCH ×4 (01:24→17:58)
[2017-11-17] MEDS: SODIUM CHLORIDE 0.9% 1,000 ML IV SCH ×3 (01:25→21:43)
[2017-11-17 06:06] LABS: Glucose,Whole Blood 187 mg/dL (75-99)
[2017-11-17 07:34] LABS: Basophils % (A) 0 %; Eosinophils # (A) 0.1 k/uL (0-0.7); Eosinophils % (A) 1 %; HCT 42.6 % (39.0-53.0); HGB 14.8 gm/dL (13.0-17.5); Lymphocytes # (A) 1.6 k/uL (1.0-4.8); Lymphocytes % (A) 13 %; MCH 31.3 pg (25.0-35.0); MCHC 34.8 g/dL (31.0-37.0); MCV 90.1 fL (80.0-100.0); Monocytes # (A) 0.5 k/uL (0-1.0); Monocytes % (A) 4 %; Neutrophils # (A) 10.4 k/uL (1.3-7.7); Neutrophils % (A) 81 %; Platelet Count 180 k/uL (150-450); RBC 4.72 m/uL (4.30-5.90); RDW 13.4 % (11.5-15.5); WBC 12.8 k/uL (3.8-10.6)
[2017-11-17 07:46] LABS: Anion Gap 11 mmol/L; Blood Urea Nitrogen 23 mg/dL (9-20); Calcium 8.3 mg/dL (8.4-10.2); Carbon Dioxide 24 mmol/L (22-30); Chloride 110 mmol/L (98-107); Glucose 196 mg/dL (74-99); Potassium 4.1 mmol/L (3.5-5.1); Sodium 145 mmol/L (137-145)
[2017-11-17] MEDS ORDERED: CLOPIDOGREL 75 MG TAB PO SCH (09:00)
[2017-11-17] MEDS ORDERED: ASPIRIN 81 MG PO SCH (09:00)
[2017-11-17] MEDS: INSULIN DETEMIR 100 UNIT/ML 10 ML VIAL SQ SCH (09:54)
[2017-11-17] MEDS: KETOROLAC 30 MG/ML 1 ML VIAL IVP PRN ×2 (10:03→18:04)
[2017-11-17] MEDS: ENOXAPARIN 40 MG/0.4 ML SYRINGE SQ SCH (10:03)
[2017-11-17] MEDS: PANTOPRAZOLE 40 MG/10 ML VIAL IV SCH (10:03)
[2017-11-17] MEDS: LISINOPRIL 5 MG TAB PO SCH (10:04)
[2017-11-17] MEDS: FUROSEMIDE 40 MG TAB PO SCH (10:04)
[2017-11-17 11:30] LABS: Glucose,Whole Blood 194 mg/dL (75-99)
--- NOTE | 2017-11-17 14:30 | P.PN ---
Subjective Progress Note Date: 11/17/17 Principal diagnosis: Status post exploratory laparotomy The patient is postoperative day 1 from exploratory laparotomy. He had a segment of the mid small bowel which was edematous and slightly thickened. This was consistent with a small bowel obstruction which had spontaneously resolved. Bowel was viable. There is good peristalsis. There was good pulsatile blood flow. There was no evidence of venous thrombosis. He's continuing to have some pain. He is not wanting to get out of bed because he says his pain is more now than before surgery. He is using a morphine SUPERVISOR CRACK OFF. Toradol was started and that helps a little bit more. No chest pain or shortness of breath. He is anxious to drink. No real flatus. Objective - Vital Signs Vital signs: Vital Signs Temp 98.5 F 11/17/17 07:00 Pulse 73 11/17/17 07:00 Resp 18 11/17/17 07:00 BP 188/54 11/17/17 07:00 Pulse Ox 92 L 11/17/17 07:00 Intake & Output 11/16/17 11/17/17 11/17/17 18:59 06:59 18:59 Intake Total 2400 200 0 Output Total 475 700 Balance 1925 -500 0 Weight 102.965 kg Intake: IV 1800 200 Intake, IV Titration 600 Amount Sodium Chloride 0.9% 1, 600 000 ml @ 75 mls/hr IV . [id number] [facility] Rx#:[id number] Oral 0 Output: Gastric Drainage 250 Urine 200 700 Estimated Blood Loss 25 Other: Voiding Method Indwelling Catheter # Voids 2 - Constitutional General appearance: Present: cooperative, no acute distress - Respiratory Respiratory: bilateral: CTA - Cardiovascular Rhythm: regular - Gastrointestinal General gastrointestinal: Present: decreased bowel sounds (Hypoactive bowel sounds are present), soft, tenderness Localized gastrointestinal: surgical scar: diffuse (Dressing is intact clean and dry) - Labs CBC & Chem 7: 11/17/17 06:40 11/17/17 06:40 Labs: Abnormal Lab Results - Last 24 Hours (Table) 11/15/17 11/16/17 11/16/17 Range/Units 19:49 18:39 20:49 WBC (3.8-10.6) k/uL Neutrophils # (1.3-7.7) k/uL Chloride (98-107) mmol/L BUN (9-20) mg/dL Glucose (74-99) mg/dL POC Glucose (mg/dL) 157 H 144 H (75-99) mg/dL Hemoglobin A1c 6.5 H (4.0-6.0) % Calcium (8.4-10.2) mg/dL 11/17/17 11/17/17 11/17/17 Range/Units 00:36 06:03 06:40 WBC 12.8 H (3.8-10.6) k/uL Neutrophils # 10.4 H (1.3-7.7) k/uL Chloride (98-107) mmol/L BUN (9-20) mg/dL Glucose (74-99) mg/dL POC Glucose (mg/dL) 164 H 187 H (75-99) mg/dL Hemoglobin A1c (4.0-6.0) % Calcium (8.4-10.2) mg/dL 18 11/17/17 Range/Units 06:40 11:27 WBC (3.8-10.6) k/uL Neutrophils # (1.3-7.7) k/uL Chloride 110 H (98-107) mmol/L BUN 23 H (9-20) mg/dL Glucose 196 H (74-99) mg/dL POC Glucose (mg/dL) 194 H (75-99) mg/dL Hemoglobin A1c (4.0-6.0) % Calcium 8.3 L (8.4-10.2) mg/dL Assessment and Plan (1) Small bowel obstruction Current Visit: Yes Status: Acute Code(s): K56.609 - UNSP INTESTNL OBST, UNSP TO PARTIAL VERSUS COMPLETE OBST SNOMED Code(s): 284097195 (2) Abdominal pain Current Visit: Yes Status: Acute Code(s): R10.9 - UNSPECIFIED ABDOMINAL PAIN SNOMED Code(s): 84346332 (3) Platelet dysfunction due to drugs Current Visit: Yes Status: Acute Code(s): D69.59 - OTHER SECONDARY THROMBOCYTOPENIA; T50.905A - ADVERSE EFFECT OF UNSP DRUG/MEDS/BIOL SUBST, INIT SNOMED Code(s): 87234048 (4) History of coronary artery disease Current Visit: Yes Status: Acute Code(s): Z86.79 - PERSONAL HISTORY OF OTHER DISEASES OF THE CIRCULATORY SYSTEM SNOMED Code(s): 172519810 (5) Diabetes Current Visit: Yes Status: Acute Code(s): E11.9 - TYPE 2 DIABETES MELLITUS WITHOUT COMPLICATIONS SNOMED Code(s): 03995613 (6) Seizure disorder Current Visit: Yes Status: Acute Code(s): G40.909 - EPILEPSY, UNSP, NOT INTRACTABLE, WITHOUT STATUS EPILEPTICUS SNOMED Code(s): 375001358 Plan: The patient's using a morphine SUPERVISOR CRACK OFF along with Toradol for pain. Will add some Ativan to assist with pain control of part of this is from anxiety from the pain. He's got some hypoactive bowel sounds. Encouraged ambulation. Encourage incentive spirometry. He is progressing slowly. Hemoglobin is stable.
[2017-11-17] MEDS: LORazepam 2 MG/ML INJ IV PRN ×2 (15:39→21:37)
[2017-11-17 17:28] LABS: Glucose,Whole Blood 279 mg/dL (75-99)
[2017-11-17 17:28] LABS: Glucose,Whole Blood 481 mg/dL (75-99)
--- NOTE | 2017-11-17 23:18 | PN ---
PROGRESS NOTE DATE OF SERVICE: 11/17/17 The patient is status post exploratory laparotomy. Vital signs: Temperature 98, pulse 76 respiratory rate 18, blood pressure 188/ 54. O2 saturation 92%. General appearance: The patient is arousable but sleepy. Claims that he is in a lot of pain. HEENT: Normocephalic, atraumatic. Pupils equal, round and reactive to light and accommodation. Extraocular movements intact. Buccal mucosa is fair NECK: No goiter. No lymphadenopathy. No jugular venous distention. No carotid bruit. Lungs: Clear to auscultation. No rales, rhonchi. Cardiovascular: Irregular rhythm without murmur or gallop rhythm. Abdomen soft, diffuse tenderness. Nondistended. Bowel sounds positive. Extremities: No edema, no clubbing, no cyanosis. SKIN: Warm and dry and intact NEUROLOGICAL; awake alert and oriented 3; cranial nerves II through III are grossly intact LABORATORY DATA: Sodium 144, chloride 110, bicarb 25, BUN 22, hemoglobin 14.8, hematocrit 42.5, platelet count of 180. ASSESSMENT: Small bowel obstruction status post laparotomy. I will continue all current medications and follow-up with the surgeon and further recommendations pending clinical course of the patient. MMODL / IJN: [id number] / MTDD
[2017-11-18 01:12] LABS: Glucose,Whole Blood 160 mg/dL (75-99)
[2017-11-18] MEDS: INSULIN ASPART 100 UNIT/ML 1 ML 10 ML VIAL SQ SCH ×4 (02:07→18:29)
[2017-11-18 05:52] LABS: Glucose,Whole Blood 175 mg/dL (75-99)
[2017-11-18] MEDS: INSULIN DETEMIR 100 UNIT/ML 10 ML VIAL SQ SCH (06:51)
[2017-11-18 06:56] LABS: Basophils % (A) 0 %; Eosinophils # (A) 0.1 k/uL (0-0.7); Eosinophils % (A) 1 %; HCT 39.6 % (39.0-53.0); HGB 13.8 gm/dL (13.0-17.5); Lymphocytes # (A) 1.7 k/uL (1.0-4.8); Lymphocytes % (A) 12 %; MCH 31.4 pg (25.0-35.0); MCHC 34.8 g/dL (31.0-37.0); MCV 90.4 fL (80.0-100.0); Mean Platelet Volume 7.2; Monocytes # (A) 0.7 k/uL (0-1.0); Monocytes % (A) 5 %; Neutrophils # (A) 11.6 k/uL (1.3-7.7); Neutrophils % (A) 81 %; Platelet Count 158 k/uL (150-450); RBC 4.38 m/uL (4.30-5.90); RDW 13.2 % (11.5-15.5); WBC 14.4 k/uL (3.8-10.6)
[2017-11-18 07:19] LABS: Anion Gap 12 mmol/L; Blood Urea Nitrogen 21 mg/dL (9-20); Calcium 8.5 mg/dL (8.4-10.2); Carbon Dioxide 25 mmol/L (22-30); Chloride 111 mmol/L (98-107); Glucose 187 mg/dL (74-99); Potassium 4.2 mmol/L (3.5-5.1); Sodium 148 mmol/L (137-145)
[2017-11-18] MEDS: ENOXAPARIN 40 MG/0.4 ML SYRINGE SQ SCH (09:15)
[2017-11-18] MEDS: FUROSEMIDE 40 MG TAB PO SCH (09:15)
[2017-11-18] MEDS: PANTOPRAZOLE 40 MG/10 ML VIAL IV SCH (09:15)
[2017-11-18] MEDS: LISINOPRIL 5 MG TAB PO SCH (09:15)
[2017-11-18] MEDS: KETOROLAC 30 MG/ML 1 ML VIAL IVP PRN (11:44)
[2017-11-18 12:03] LABS: Glucose,Whole Blood 241 mg/dL (75-99)
--- NOTE | 2017-11-18 14:54 | XR ---
EXAMINATION TYPE: XR chest 1V portable DATE OF EXAM: 11/18/2017 CLINICAL HISTORY: Difficulty breathing and hypoxia. TECHNIQUE: Single AP portable upright view of the chest is obtained. COMPARISON: Chest x-ray from 2 days earlier and older study January 19, 2016. FINDINGS: There is persistent nasogastric tube. Sternal wires and mediastinal clips are redemonstra juan. There is persistent cardiomegaly with patchy left basilar atelectasis and/or infiltrate. Right l inder remains clear. No large pleural effusion or pneumothorax is seen bilaterally. Osseous structures are intact. IMPRESSION: Cardiomegaly with patchy left basilar atelectasis and/or infiltrate. No significant perez e from study 2 days earlier in my opinion.
[2017-11-18 16:11] LABS: Basophils % (A) 0 %; Eosinophils # (A) 0.2 k/uL (0-0.7); Eosinophils % (A) 2 %; HCT 37.4 % (39.0-53.0); HGB 12.4 gm/dL (13.0-17.5); Lymphocytes # (A) 2.1 k/uL (1.0-4.8); Lymphocytes % (A) 17 %; MCH 30.4 pg (25.0-35.0); MCHC 33.1 g/dL (31.0-37.0); MCV 91.8 fL (80.0-100.0); Mean Platelet Volume 7.6; Monocytes # (A) 0.6 k/uL (0-1.0); Monocytes % (A) 5 %; Neutrophils # (A) 9.1 k/uL (1.3-7.7); Neutrophils % (A) 75 %; Platelet Count 148 k/uL (150-450); RBC 4.07 m/uL (4.30-5.90); RDW 13.3 % (11.5-15.5); WBC 12.2 k/uL (3.8-10.6)
--- NOTE | 2017-11-18 16:40 | P.PN ---
Subjective Progress Note Date: 11/18/17 Patient complains of wanting something to eat today. He still having significant output out of his NG tube along with some mild abdominal distention he has had no bowel function. No gas. He is slightly short of breath today and on oxygen. He also has had been having some venous oozing from the inferior portion of his wound. This is being controlled with a pressure dressing at this time. Objective - Vital Signs Vital signs: Vital Signs Temp 98.1 F 11/18/17 15:00 Pulse 55 L 11/18/17 15:44 Resp 16 11/18/17 15:00 BP 182/64 11/18/17 15:00 Pulse Ox 96 11/18/17 12:46 Intake & Output 11/17/17 11/18/17 11/18/17 18:59 06:59 18:59 Intake Total 600 1050 Output Total 1800 2650 750 Balance -1200 -1600 -750 Intake: IV 600 Sodium Chloride 0.9% 1, 600 000 ml @ 75 mls/hr IV . [id number] [facility] Rx#:[id number] Intake, IV Titration 1050 Amount Sodium Chloride 0.9% 1, 1050 000 ml @ 75 mls/hr IV . [id number] [facility] Rx#:[id number] Oral 0 0 Output: Gastric Drainage 600 Drainage 2100 Right 2100 Urine 1200 550 750 Uretheral (Patten) 800 550 300 Other: Voiding Method Indwelling Catheter Indwelling Catheter Indwelling Catheter - Constitutional General appearance: Present: cooperative - Respiratory Details: 4 L nasal cannula - Cardiovascular Rhythm: regular - Gastrointestinal Gastrointestinal Comment(s): Soft mildly distention expected tenderness to palpation small amount of venous oozing from inferior portion of the wound - Psychiatric Psychiatric: Present: A&O x's 3 - Labs CBC & Chem 7: 11/18/17 15:55 11/18/17 06:35 Labs: Abnormal Lab Results - Last 24 Hours (Table) 11/17/17 11/17/17 11/18/17 Range/Units 17:23 17:25 00:58 WBC (3.8-10.6) k/uL RBC (4.30-5.90) m/uL Hgb (13.0-17.5) gm/dL Hct (39.0-53.0) % Plt Count (150-450) k/uL Neutrophils # (1.3-7.7) k/uL Sodium (137-145) mmol/L Chloride (98-107) mmol/L BUN (9-20) mg/dL Glucose (74-99) mg/dL POC Glucose (mg/dL) 481 H 279 H 160 H (75-99) mg/dL 11/18/17 11/18/17 11/18/17 Range/Units 05:50 06:35 06:35 WBC 14.4 H (3.8-10.6) k/uL RBC (4.30-5.90) m/uL Hgb (13.0-17.5) gm/dL Hct (39.0-53.0) % Plt Count (150-450) k/uL Neutrophils # 11.6 H (1.3-7.7) k/uL Sodium 148 H (137-145) mmol/L Chloride 111 H (98-107) mmol/L BUN 21 H (9-20) mg/dL Glucose 187 H (74-99) mg/dL POC Glucose (mg/dL) 175 H (75-99) mg/dL 11/18/17 11/18/17 Range/Units 12:01 15:55 WBC 12.2 H (3.8-10.6) k/uL RBC 4.07 L (4.30-5.90) m/uL Hgb 12.4 L (13.0-17.5) gm/dL Hct 37.4 L (39.0-53.0) % Plt Count 148 L (150-450) k/uL Neutrophils # 9.1 H (1.3-7.7) k/uL Sodium (137-145) mmol/L Chloride (98-107) mmol/L BUN (9-20) mg/dL Glucose (74-99) mg/dL POC Glucose (mg/dL) 241 H (75-99) mg/dL Assessment and Plan Assessment: Postop day 2 exploratory laparotomy Plan: Patient is slightly short of breath today and requiring oxygen. Chest x-ray will be ordered. Continue with incentive spirometry 10 times an hour while awake. Patient encouraged to get up to chair and ambulate. We'll hold Plavix and aspirin Lovenox this time secondary to bleeding from the inferior portion of the wound pressure dressing is applied. Hemoglobin is stable at this time. Continue nothing by mouth and IV fluids. Patient's pain is controlled on a morphine SWITCHBOARD INSTALLER. Await bowel function
--- NOTE | 2017-11-18 17:02 | P.PN ---
Progress Note - Text Progress Note Date: 11/18/17 Called patient's bedside and patient was having continued oozing from inferior portion of the wound. Upon close inspection it appeared that there was a small venous ooze from the incision line. Given his stable hemoglobin this is likely just a skin bleeder. The skin was prepped and two 3-0 nylon sutures were placed and hemostasis was achieved. Dressing applied
[2017-11-18 17:31] LABS: Glucose,Whole Blood 144 mg/dL (75-99)
--- NOTE | 2017-11-18 18:16 | PN ---
PROGRESS NOTE DATE OF SERVICE: 11/18/2017 Patient claims that his abdominal pain is about the same and he does not feel well. VITAL SIGNS: Temperature of 98.1, pulse 60, respirations 16, blood pressure of 182/64, O2 saturation 96% on 4L. The patient is in distress secondary to pain. HEENT: Atraumatic, normocephalic. Pupils equal and reactive to light. Extraocular movements intact. Buccal mucosa is fair. Neck is supple. No goiter, lymphadenopathy. JVD is negative. No carotid bruit heard. Lungs with positive scattered rhonchi and occasional wheezing. Heart is irregular rate and rhythm without any murmurs, gallop rhythm. Abdomen is soft to firm, remains in a binder. Bowel sounds are hypoactive. Extremities have trace edema. NEUROLOGICAL: Cranial nerves 2-12 grossly intact. No gross motor or sensory deficit. LAB: CBC: White blood count of 12.2, hemoglobin 12.4, hematocrit 37.4 and platelet count of 148. Chemical profile: Sodium 140, potassium 4.2, chloride 111, bicarb 25, BUN of 21, creatinine 0.89, and glucose 187. Chest x-ray was ordered, which shows possible atelectasis versus left basilar infiltrate. The patient remains on IV fluids. ASSESSMENT: 1. Chest congestion, fluid overload versus pneumonia. We will decrease patient's IV fluids, give him a 1-day dose of IV Lasix 40 mg. The patient is currently not on any antibiotics. Will add IV Zosyn. Will monitor CBC and electrolytes. Will check BNP. Further recommendations pending test results. 2. Small bowel obstruction, status post laparotomy. 3. History of coronary artery disease. 4. Diabetes mellitus, hyperglycemia. Patient remains on Accu-Cheks with sliding scale. We will escalate his insulin therapies on 70 units of Levemir currently. Continue with sliding scale protocol. MMODL / IJN: [id number] /
[2017-11-18] MEDS: SODIUM CHLORIDE 0.9% 1,000 ML IV SCH (20:04)
[2017-11-18] MEDS: PIPERACILLIN-TAZOBACTAM 3.375 GM in DEXTROSE/WATER 1 50ML.BAG IVPB SCH ×2 (20:04→22:02)
[2017-11-19] MEDS: PIPERACILLIN-TAZOBACTAM 3.375 GM in DEXTROSE/WATER 1 50ML.BAG IVPB SCH ×4 (00:21→16:17)
[2017-11-19 00:43] LABS: Glucose,Whole Blood 170 mg/dL (75-99)
[2017-11-19] MEDS: INSULIN ASPART 100 UNIT/ML 1 ML 10 ML VIAL SQ SCH ×5 (00:47→21:46)
[2017-11-19] MEDS: SODIUM CHLORIDE 0.9% 1,000 ML IV SCH (04:41)
[2017-11-19 05:44] LABS: Glucose,Whole Blood 155 mg/dL (75-99)
[2017-11-19] MEDS: FUROSEMIDE 40 MG TAB PO SCH (07:27)
[2017-11-19] MEDS: LISINOPRIL 5 MG TAB PO SCH (07:27)
[2017-11-19] MEDS: PANTOPRAZOLE 40 MG/10 ML VIAL IV SCH (07:28)
[2017-11-19] MEDS: INSULIN DETEMIR 100 UNIT/ML 10 ML VIAL SQ SCH (07:28)
[2017-11-19] MEDS: MORPHINE PCA 30 MG/30 ML SYRINGE IV PRN (07:29)
[2017-11-19 08:04] LABS: Basophils % (A) 0 %; Eosinophils # (A) 0.3 k/uL (0-0.7); Eosinophils % (A) 3 %; HCT 37.4 % (39.0-53.0); Lymphocytes # (A) 1.7 k/uL (1.0-4.8); Lymphocytes % (A) 13 %; MCH 31.3 pg (25.0-35.0); MCHC 34.7 g/dL (31.0-37.0); MCV 90.2 fL (80.0-100.0); Mean Platelet Volume 7.6; Monocytes # (A) 0.6 k/uL (0-1.0); Monocytes % (A) 5 %; Neutrophils # (A) 10.3 k/uL (1.3-7.7); Neutrophils % (A) 78 %; Platelet Count 185 k/uL (150-450); RBC 4.14 m/uL (4.30-5.90); RDW 13.2 % (11.5-15.5); WBC 13.1 k/uL (3.8-10.6)
[2017-11-19 08:15] LABS: Anion Gap 10 mmol/L; Blood Urea Nitrogen 19 mg/dL (9-20); Calcium 8.6 mg/dL (8.4-10.2); Carbon Dioxide 27 mmol/L (22-30); Chloride 112 mmol/L (98-107); Glucose 153 mg/dL (74-99); Potassium 4.5 mmol/L (3.5-5.1); Sodium 149 mmol/L (137-145)
[2017-11-19 11:49] LABS: Glucose,Whole Blood 193 mg/dL (75-99)
[2017-11-19] MEDS ORDERED: VANCOMYCIN IV PER PHARMACY 1 EACH MISC MISCELLANE PRN (13:54)
--- NOTE | 2017-11-19 14:14 | P.PN ---
Subjective Progress Note Date: 11/19/17 Patient is improved today. His rest or status is improved. He states his abdominal pain is improved. He passed a small amount of flatus. No bowel movement. No incisional bleeding overnight. Objective - Vital Signs Vital signs: Vital Signs Temp 97.9 F 11/19/17 07:32 Pulse 61 11/19/17 07:32 Resp 18 11/19/17 07:32 BP 199/61 11/19/17 07:32 Pulse Ox 97 11/19/17 10:50 Intake & Output 11/18/17 11/19/17 11/19/17 17:59 06:59 18:59 Intake Total Output Total Balance Intake: IV Sodium Chloride 0.9% 1, 000 ml @ 75 mls/hr IV . [id number] [facility] Rx#:[id number] Intake, IV Titration Amount Piperacillin-Tazobactam 3 .375 gm In Dextrose/Water 1 50ml.bag @ 12.5 mls/hr IVPB Q8HR [facility] Rx#: [id number] Sodium Chloride 0.9% 1, 000 ml @ 75 mls/hr IV . [id number] [facility] Rx#:[id number] Oral Output: Gastric Drainage Urine Uretheral (Patten) Other: Voiding Method Indwelling Catheter - Constitutional General appearance: Present: cooperative - EENT Eyes: Present: PERRLA - Respiratory Details: Nonlabored - Cardiovascular Rhythm: regular - Gastrointestinal Gastrointestinal Comment(s): Soft mildly distended incisions clean dry and intact mild tenderness palpation no rebound rigidity or guarding - Psychiatric Psychiatric: Present: A&O x's 3 - Labs CBC & Chem 7: 11/19/17 06:50 11/19/17 06:50 Labs: Abnormal Lab Results - Last 24 Hours (Table) 11/18/17 11/18/17 11/19/17 Range/Units 15:55 17:28 00:42 WBC 12.2 H (3.8-10.6) k/uL RBC 4.07 L (4.30-5.90) m/uL Hgb 12.4 L (13.0-17.5) gm/dL Hct 37.4 L (39.0-53.0) % Plt Count 148 L (150-450) k/uL Neutrophils # 9.1 H (1.3-7.7) k/uL Sodium (137-145) mmol/L Chloride (98-107) mmol/L Glucose (74-99) mg/dL POC Glucose (mg/dL) 144 H 170 H (75-99) mg/dL 11/19/17 11/19/17 11/19/17 Range/Units 05:42 06:50 06:50 WBC 13.1 H (3.8-10.6) k/uL RBC 4.14 L (4.30-5.90) m/uL Hgb (13.0-17.5) gm/dL Hct 37.4 L (39.0-53.0) % Plt Count (150-450) k/uL Neutrophils # 10.3 H (1.3-7.7) k/uL Sodium 149 H (137-145) mmol/L Chloride 112 H (98-107) mmol/L Glucose 153 H (74-99) mg/dL POC Glucose (mg/dL) 155 H (75-99) mg/dL 11/19/17 Range/Units 11:48 WBC (3.8-10.6) k/uL RBC (4.30-5.90) m/uL Hgb (13.0-17.5) gm/dL Hct (39.0-53.0) % Plt Count (150-450) k/uL Neutrophils # (1.3-7.7) k/uL Sodium (137-145) mmol/L Chloride (98-107) mmol/L Glucose (74-99) mg/dL POC Glucose (mg/dL) 193 H (75-99) mg/dL Assessment and Plan Assessment: Postop day 3 exploratory laparotomy Plan: Patient is up to chair today. He apparently ambulated to his doorway. Continue encouraging ambulation and incentive spirometry. Continue NG tube for now until further bowel function resumes. He is still having bilious output from NG tube. His pain is well-controlled on morphine QUARANTINE OFFICER. Respiratory status is being evaluated and treated by medicine and pulmonology.
[2017-11-19] MEDS ORDERED: VANCOMYCIN 1,750 MG in SODIUM CHLORIDE 0.9% 250 ML IVPB ONE (14:15)
--- NOTE | 2017-11-19 16:59 | PN ---
PROGRESS NOTE DATE OF SERVICE: 11/19/2017 Patient is seen in the room and seems improved. He is sitting on the side of the bed. Claims breathing is better. VITAL SIGNS: Temperature 97.9, pulse 61, respiration 18, blood pressure 99/61, O2 saturation 97%. GENERAL: Patient is awake and alert. He is in no acute distress. HEENT: Atraumatic, normocephalic. Pupils equal and reactive to light. Extraocular movements intact. Buccal mucosa is fair. NECK: Supple. No goiter, lymphadenopathy. JVD is negative. No carotid bruit heard. LUNGS: Decreased breath sounds, possible minimal basilar crackles. Heart is irregular rate and rhythm without any murmurs or gallop rhythm. Abdomen is soft and obese, in binder. Mild diffuse tenderness. Bowel sounds positive. EXTREMITIES: 1+ edema both lower extremities. NEUROLOGICAL EXAMINATION: Cranial nerves 2-12 grossly intact. No gross motor or sensory deficit. LABS: CBC: White blood count of 13.1, hemoglobin 13, hematocrit 37.4, and platelet count 185. Chemical profile: Sodium 139, potassium 4.5, chloride 112, bicarb 27, BUN of 19, creatinine 0.76, glucose 153. ASSESSMENT: 1. Chest congestion rule out healthcare associated pneumonia. The patient did have a chest x-ray which did show some questionable infiltrate. The patient is on IV Zosyn. We will proceed to add IV vancomycin. I will consult Pulmonary Medicine for further recommendations on need for IV antibiotics. Patient did have a dose of IV Lasix yesterday. We will continue that. We will await further recommendations from Pulmonary Service. 2. Hypernatremia, possible negative fluid balance. I will proceed to start patient on half-normal saline, run at 75 mL an hour. Will monitor closely for any fluid overload. We will monitor electrolytes and renal function. Further recommendations after workup is completed. 3. Small-bowel obstruction status post exploratory laparotomy. Patient is postoperative day 3. He is up in his bed. He is encouraged to ambulate with incentive spirometry. Continues to have NG tube and still having bilious output from the NG tube. 4. Postop pain control. Patient is on morphine TIPPLE OILER. Surgical service is following that. 5. History of coronary artery disease. 6. Hyperglycemia and diabetes. The patient is continued on insulin with sliding scale protocol. He is on 70 units of Levemir. Continue with Accu-Cheks with sliding scale. 7. Uncontrolled hypertension. The patient is currently on 5 mg of lisinopril daily for blood pressure control. We will increase the dose to 10 mg and continue to monitor blood pressure closely. I will also add IV hydralazine to be used p.r.n. MMEUGENIEL / DEYSIN: [id number] /
--- NOTE | 2017-11-19 17:21 | P.CNPUL ---
History of Present Illness Consult date: 11/19/17 Reason for consult: pneumonia History of present illness: This patient has undergone expiratory laparotomy for abdominal pain and small bowel obstruction. The patient was found to have small bowel obstruction and the patient was found to have some segments of mid small bowel which was edematous and slightly thickened. Obstruction was released and the patient is currently postop day #3. NG tube still in place. Bowel sounds are still hypoactive. He is improving slowly. Abdominal pain is resolved. He has passed some small amount of flatus. Incision is dry clean and intact. General surgeries on the case. I was asked even with this patient for possible pneumonia. I reviewed the x-rays and I do not see any evidence of pneumonia and there is some limited atelectatic changes in lung bases. The patient clinically has no respiratory distress, sputum production chest tightness or wheezing. He is a nonsmoker. He has no history of COPD. He is using incentive spirometer. Has no leukocytosis. He is afebrile. He is hemodynamically stable. Review of Systems A full review of system was done and the positive findings are almost above in history of present illness. Note that the CAT scan of the abdomen and pelvis showed the lung bases from 11/15/2017 and showed no evidence of pneumonia. Past Medical History Past Medical History: Coronary Artery Disease (CAD), Chest Pain / Angina, Diabetes Mellitus, Hyperlipidemia, Hypertension, Seizure Disorder Additional Past Medical History / Comment(s): IDDM, last grand mal seizure 2003 , epistaxis. History of Any Multi-Drug Resistant Organisms: None Reported Past Surgical History: Appendectomy, Coronary Bypass/CABG, Heart Catheterization With Stent Additional Past Surgical History / Comment(s): PCI with stents (pt thinks 2 total stents) with last stent placed 03/13/14, angioplasties x 3, 02/19/07 CABG-4 vessel, colonoscopy-normal. Past Anesthesia/Blood Transfusion Reactions: No Reported Reaction Date of Last Stent Placement:: 03/13/14 Past Psychological History: No Psychological Hx Reported Additional Psychological History / Comment(s): Pt resides with his spouse. He uses no assistive device. He drives. Smoking Status: Former smoker Past Alcohol Use History: None Reported Additional Past Alcohol Use History / Comment(s): Pt states he quit smoking in 2003. He had started smoking in 1965. Past Drug Use History: None Reported - Past Family History Father Family Medical History: Cancer Additional Family Medical History / Comment(s): Father of leukemia at the age of 67 yrs. Mother Family Medical History: Cancer, Dementia Additional Family Medical History / Comment(s): Mother had retinal cancer. She of dementia at the age of 89yrs. Medications and Allergies Home Medications Medication Instructions Recorded Confirmed Type Aspirin EC [Ecotrin Low Dose] 81 mg PO DAILY 01/19/16 11/15/17 History Atorvastatin [Lipitor] 40 mg PO DAILY 01/19/16 11/15/17 History B Complex-Vit C-Vit E-Zinc [Z-Bec] 1 tab PO DAILY 01/19/16 11/15/17 History Clopidogrel [Plavix] 75 mg PO MOWEFR 01/19/16 11/15/17 History Furosemide [Lasix] 60 mg PO DAILY 01/19/16 11/15/17 History Gemfibrozil [Lopid] 600 mg PO BID 01/19/16 11/15/17 History Insulin Aspart [NovoLOG 20 units SQ AC-BID 01/19/16 11/15/17 History (formulary)] Insulin Glargine [Lantus] 70 units SQ DAILY 01/19/16 11/15/17 History Isosorbide Mononitrate ER [Imdur] 30 mg PO DAILY 01/19/16 11/15/17 History Lisinopril [Zestril] 5 mg PO DAILY 01/19/16 11/15/17 History Metoprolol Tartrate [Lopressor] 25 mg PO BID 01/19/16 11/15/17 History Multivitamins, Thera [Multivitamin 1 tab PO DAILY 01/19/16 11/15/17 History (formulary)] Zolpidem [Ambien] 10 mg PO HS 01/19/16 11/15/17 History metFORMIN HCL [Glucophage] 500 mg PO HS 01/19/16 11/15/17 History traZODone HCL [Desyrel] 100 mg PO HS 01/19/16 11/15/17 History Allopurinol [Zyloprim] 100 mg PO DAILY 11/15/17 11/15/17 History Citalopram Hydrobromide [CeleXA] 40 mg PO DAILY 11/15/17 11/15/17 History Allergies Allergy/AdvReac Type Severity Reaction Status Date / Time ciprofloxacin [From Cipro] Allergy Unknown Verified 11/15/17 19:43 ciprofloxacin HCl Allergy Unknown Verified 11/15/17 19:43 [From Cipro] ezetimibe [From Vytorin] Allergy Unknown Verified 11/15/17 19:43 indomethacin [From Indocin] Allergy Unknown Verified 11/15/17 19:43 indomethacin sodium Allergy Unknown Verified 11/15/17 19:43 [From Indocin] lamotrigine [From Lamictal] Allergy Unknown Verified 11/15/17 19:43 simvastatin [From Vytorin] Allergy Unknown Verified 11/15/17 19:43 Physical Exam Vitals: Vital Signs Temp Pulse Pulse Resp BP BP Pulse Ox 11/19/17 16:18 93 L 11/19/17 16:14 92 L 11/19/17 15:00 98.7 F 56 L 15 199/73 97 11/19/17 10:50 97 11/19/17 07:32 97.9 F 61 18 199/61 97 11/19/17 07:14 93 L 11/19/17 01:44 201/75 165/72 11/19/17 01:39 98.1 F 63 16 93 L 11/18/17 21:00 95 11/18/17 19:54 97.9 F 22 209/75 165/72 94 L 11/18/17 17:52 97 Intake and Output 11/19/17 11/19/17 11/19/17 06:59 14:59 22:59 Intake Total Output Total 800 250 Balance -800 -250 Intake: IV Sodium Chloride 0.9% 1, 000 ml @ 75 mls/hr IV . [id number] [facility] Rx#:[id number] Intake, IV Titration Amount Piperacillin-Tazobactam 3 .375 gm In Dextrose/Water 1 50ml.bag @ 12.5 mls/hr IVPB Q8HR [facility] Rx#: [id number] Sodium Chloride 0.9% 1, 000 ml @ 75 mls/hr IV . [id number] [facility] Rx#:[id number] Oral Output: Gastric Drainage 250 Urine 800 Other: Voiding Method Indwelling Catheter Indwelling Catheter Gen. appearance the patient is calm and comfortable,nonacute distress.Head exam was generally normal. There was no scleral icterus or corneal arcus. Mucous membranes were moist.Neck was supple and without jugular venous distension, thyromegaly, or carotid bruits. Carotids were easily palpable bilaterally. There was no adenopathy. The patient has an NG tube in place. Lung sounds are diminished in lung bases bilaterally otherwise clear.Cardiac exam revealed the PMI to be normally situated and sized. The rhythm was regular and no extrasystoles were noted during several minutes of auscultation. The first and second heart sounds were normal and physiologic splitting of the second heart sound was noted. There were no murmurs, rubs, clicks, or gallops. Abdomen is slightly distended soft. Bowel sounds are hypoactive. Incision is clean. No direct tenderness or rebound tensile guarding.Examination of the extremities revealed easily palpable radial, femoral and pedal pulses. There was no cyanosis , clubbing or edema. Neurologically patient is awake and alert and there is no focal logical deficits. Psychiatric to the patient is having an appropriate mood and affect. Results - Laboratory Findings CBC and BMP: 11/19/17 06:50 11/19/17 06:50 PT/INR, D-dimer PT 10.7 sec (9.0-12.0) 11/15/17 19:49 INR 1.1 (<1.2) 11/15/17 19:49 Abnormal lab findings: Abnormal Labs 11/15/17 11/15/17 11/15/17 19:49 19:49 19:49 WBC 14.9 H RBC Hgb Hct Plt Count Neutrophils # 11.1 H Sodium Chloride BUN 36 H Glucose 189 H POC Glucose (mg/dL) Hemoglobin A1c 6.5 H Calcium Urine Protein Urine Bacteria Hyaline Casts 11/15/17 11/16/17 11/16/17 20:13 04:59 11:48 WBC RBC Hgb Hct Plt Count Neutrophils # Sodium Chloride BUN Glucose POC Glucose (mg/dL) 151 H 156 H Hemoglobin A1c Calcium Urine Protein 1+ H Urine Bacteria Rare H Hyaline Casts 5 H 11/16/17 11/16/17 11/17/17 18:39 20:49 00:36 WBC RBC Hgb Hct Plt Count Neutrophils # Sodium Chloride BUN Glucose POC Glucose (mg/dL) 157 H 144 H 164 H Hemoglobin A1c Calcium Urine Protein Urine Bacteria Hyaline Casts 11/17/17 11/17/17 11/17/17 06:03 06:40 06:40 WBC 12.8 H RBC Hgb Hct Plt Count Neutrophils # 10.4 H Sodium Chloride 110 H BUN 23 H Glucose 196 H POC Glucose (mg/dL) 187 H Hemoglobin A1c Calcium 8.3 L Urine Protein Urine Bacteria Hyaline Casts 11/17/17 11/17/17 11/17/17 11:27 17:23 17:25 WBC RBC Hgb Hct Plt Count Neutrophils # Sodium Chloride BUN Glucose POC Glucose (mg/dL) 194 H 481 H 279 H Hemoglobin A1c Calcium Urine Protein Urine Bacteria Hyaline Casts 11/18/17 11/18/17 11/18/17 00:58 05:50 06:35 WBC 14.4 H RBC Hgb Hct Plt Count Neutrophils # 11.6 H Sodium Chloride BUN Glucose POC Glucose (mg/dL) 160 H 175 H Hemoglobin A1c Calcium Urine Protein Urine Bacteria Hyaline Casts 11/18/17 11/18/17 11/18/17 06:35 12:01 15:55 WBC 12.2 H RBC 4.07 L Hgb 12.4 L Hct 37.4 L Plt Count 148 L Neutrophils # 9.1 H Sodium 148 H Chloride 111 H BUN 21 H Glucose 187 H POC Glucose (mg/dL) 241 H Hemoglobin A1c Calcium Urine Protein Urine Bacteria Hyaline Casts 11/18/17 11/19/17 11/19/17 17:28 00:42 05:42 WBC RBC Hgb Hct Plt Count Neutrophils # Sodium Chloride BUN Glucose POC Glucose (mg/dL) 144 H 170 H 155 H Hemoglobin A1c Calcium Urine Protein Urine Bacteria Hyaline Casts 11/19/17 11/19/17 11/19/17 06:50 06:50 11:48 WBC 13.1 H RBC 4.14 L Hgb Hct 37.4 L Plt Count Neutrophils # 10.3 H Sodium 149 H Chloride 112 H BUN Glucose 153 H POC Glucose (mg/dL) 193 H Hemoglobin A1c Calcium Urine Protein Urine Bacteria Hyaline Casts - Diagnostic Findings Chest x-ray: image reviewed Assessment and Plan Plan: Assessment 1 postop day #3 from [place] laparotomy and lysis and the release of small bowel obstruction. This is a routine recovery and there is no evidence of any sepsis or pneumonia based on my evaluation. NG tube is in place. The patient is recovering slowly. 2 coronary artery disease with previous bypass surgery. 3 diabetes mellitus 4 hypertension 5 hyperlipidemia 6 seizure disorder Plan Continue routine postoperative pulmonary care. Incentive spirometer. Aspiration precaution. NG tube is in place. No need for antibiotics
[2017-11-19 17:57] LABS: Glucose,Whole Blood 166 mg/dL (75-99)
[2017-11-19] MEDS: SODIUM CHLORIDE 0.45% 1,000 ML IV SCH (18:53)
[2017-11-19] MEDS: hydrALAZINE HCL 20 MG/ML 1 ML VIAL IVP PRN (20:28)
[2017-11-19 20:48] LABS: Glucose,Whole Blood 223 mg/dL (75-99)
[2017-11-19] MEDS: METOPROLOL TARTRATE 25 MG TAB PO SCH (21:50)
[2017-11-19] MEDS ORDERED: VANCOMYCIN 1,750 MG in SODIUM CHLORIDE 0.9% 250 ML IVPB SCH (22:00)
[2017-11-20] MEDS: hydrALAZINE HCL 20 MG/ML 1 ML VIAL IVP PRN ×3 (00:48→16:38)
[2017-11-20] MEDS: SODIUM CHLORIDE 0.45% 1,000 ML IV SCH ×2 (04:23→16:37)
[2017-11-20 06:30] LABS: Glucose,Whole Blood 146 mg/dL (75-99)
[2017-11-20 07:46] LABS: Basophils % (A) 0 %; Eosinophils # (A) 0.3 k/uL (0-0.7); Eosinophils % (A) 3 %; HCT 35.7 % (39.0-53.0); HGB 12.1 gm/dL (13.0-17.5); Lymphocytes % (A) 17 %; MCH 30.4 pg (25.0-35.0); MCHC 33.9 g/dL (31.0-37.0); MCV 89.6 fL (80.0-100.0); Mean Platelet Volume 7.6; Monocytes # (A) 0.6 k/uL (0-1.0); Monocytes % (A) 5 %; Neutrophils # (A) 8.7 k/uL (1.3-7.7); Neutrophils % (A) 74 %; Platelet Count 207 k/uL (150-450); RBC 3.99 m/uL (4.30-5.90); RDW 13.1 % (11.5-15.5); WBC 11.8 k/uL (3.8-10.6)
[2017-11-20 08:09] LABS: Anion Gap 12 mmol/L; Blood Urea Nitrogen 18 mg/dL (9-20); Calcium 8.5 mg/dL (8.4-10.2); Carbon Dioxide 23 mmol/L (22-30); Chloride 109 mmol/L (98-107); Glucose 143 mg/dL (74-99); Potassium 3.5 mmol/L (3.5-5.1); Sodium 144 mmol/L (137-145)
[2017-11-20] MEDS: INSULIN DETEMIR 100 UNIT/ML 10 ML VIAL SQ SCH (09:28)
[2017-11-20] MEDS: ISOSORBIDE MONONITRATE ER 30 MG TAB.ER.24H PO SCH (09:28)
[2017-11-20] MEDS: FUROSEMIDE 40 MG TAB PO SCH (09:28)
[2017-11-20] MEDS: LISINOPRIL 5 MG TAB PO SCH (09:29)
[2017-11-20] MEDS: METOPROLOL TARTRATE 25 MG TAB PO SCH ×2 (09:31→22:07)
[2017-11-20] MEDS: INSULIN ASPART 100 UNIT/ML 1 ML 10 ML VIAL SQ SCH ×4 (09:32→22:01)
--- NOTE | 2017-11-20 10:19 | P.PN ---
Subjective Progress Note Date: 11/20/17 Principal diagnosis: Status post exploratory laparotomy The patient seen on rounds. The NG tube was removed yesterday. He said he "overdid it" with the liquids. He drinks several large glasses of water once and developed pain and nausea. He's feeling better today. He is passing some flatus. No vomiting. Pain is controlled with [employer]. He is complaining of not being able to sleep. He typically takes medication at night to help him sleep. Objective - Vital Signs Vital signs: Vital Signs Temp 98.3 F 11/20/17 07:00 Pulse 58 L 11/20/17 07:00 Resp 16 11/20/17 07:00 BP 183/73 11/20/17 07:00 Pulse Ox 94 L 11/20/17 09:48 Intake & Output 11/19/17 11/20/17 11/20/17 18:59 06:59 18:59 Output Total 1050 700 350 Balance -1050 -700 -350 Output: Gastric Drainage 250 Urine 800 700 350 Uretheral (Patten) 350 Other: Voiding Method Indwelling Catheter Indwelling Catheter # Voids 2 # Bowel Movements 1 - Constitutional General appearance: Present: cooperative, no acute distress - Respiratory Respiratory: bilateral: CTA (He was able to do 2000 on his incentive spirometry today) - Cardiovascular Rhythm: regular - Gastrointestinal General gastrointestinal: Present: normal bowel sounds, soft Localized gastrointestinal: surgical scar: diffuse (Incision is intact. There is some ecchymosis without hematoma present.) - Labs CBC & Chem 7: 11/20/17 06:59 11/20/17 06:59 Labs: Abnormal Lab Results - Last 24 Hours (Table) 11/19/17 11/19/17 11/19/17 Range/Units 11:48 17:52 20:45 WBC (3.8-10.6) k/uL RBC (4.30-5.90) m/uL Hgb (13.0-17.5) gm/dL Hct (39.0-53.0) % Neutrophils # (1.3-7.7) k/uL Chloride (98-107) mmol/L Glucose (74-99) mg/dL POC Glucose (mg/dL) 193 H 166 H 223 H (75-99) mg/dL 03/12/18 03/12/18 03/12/18 Range/Units 06:16 06:59 06:59 WBC 11.8 H (3.8-10.6) k/uL RBC 3.99 L (4.30-5.90) m/uL Hgb 12.1 L (13.0-17.5) gm/dL Hct 35.7 L (39.0-53.0) % Neutrophils # 8.7 H (1.3-7.7) k/uL Chloride 109 H (98-107) mmol/L Glucose 143 H (74-99) mg/dL POC Glucose (mg/dL) 146 H (75-99) mg/dL Assessment and Plan (1) Small bowel obstruction Current Visit: Yes Status: Acute Code(s): K56.609 - UNSP INTESTNL OBST, UNSP TO PARTIAL VERSUS COMPLETE OBST SNOMED Code(s): 864836155 (2) Abdominal pain Current Visit: Yes Status: Acute Code(s): R10.9 - UNSPECIFIED ABDOMINAL PAIN SNOMED Code(s): 55924737 (3) Platelet dysfunction due to drugs Current Visit: Yes Status: Acute Code(s): D69.59 - OTHER SECONDARY THROMBOCYTOPENIA; T50.905A - ADVERSE EFFECT OF UNSP DRUG/MEDS/BIOL SUBST, INIT SNOMED Code(s): 08883479 (4) History of coronary artery disease Current Visit: Yes Status: Acute Code(s): Z86.79 - PERSONAL HISTORY OF OTHER DISEASES OF THE CIRCULATORY SYSTEM SNOMED Code(s): 407810784 (5) Diabetes Current Visit: Yes Status: Acute Code(s): E11.9 - TYPE 2 DIABETES MELLITUS WITHOUT COMPLICATIONS SNOMED Code(s): 45305707 (6) Seizure disorder Current Visit: Yes Status: Acute Code(s): G40.909 - EPILEPSY, UNSP, NOT INTRACTABLE, WITHOUT STATUS EPILEPTICUS SNOMED Code(s): 551778485 Plan: We'll let him slowly start clear liquids today. I offered a suppository to help stimulate bowel function but he would like to wait. He is requesting his medication help him sleep so I will reorder that. He's progressing slowly.
[2017-11-20] MEDS ORDERED: BISACODYL 10 MG SUPP RECTAL PRN (10:20)
[2017-11-20 11:13] LABS: Glucose,Whole Blood 152 mg/dL (75-99)
[2017-11-20 17:01] LABS: Glucose,Whole Blood 99 mg/dL (75-99)
[2017-11-20 20:40] LABS: Glucose,Whole Blood 102 mg/dL (75-99)
--- NOTE | 2017-11-20 21:03 | PN ---
PROGRESS NOTE DATE OF SERVICE: 11/20/2017 This 71-year-old gentleman who was admitted with partial small bowel obstruction also had history of CAD, CABG, and other medical issues. The patient underwent exploratory laparotomy. Some mild edema was noted. No chest pain. No palpitations. No fever. On exam, alert and oriented x3, pulse 90, blood pressure 189/79, respiration 16, temperature 97 degrees, pulse ox 94% on room air. HEENT: Conjunctivae normal. NECK: No jugular venous distention. CARDIOVASCULAR SYSTEM: S1, S2 muffled. RESPIRATORY SYSTEM: Breath sounds diminished at the bases. No rhonchi. No crackles. ABDOMEN: Soft. Status post surgery. LEGS: No edema. No swelling. NERVOUS SYSTEM: No focal deficit. LABS: WBC 11.2, hemoglobin 12.1. ASSESSMENT: 1. Abdominal pain, possibly partial small-bowel obstruction, status post exploratory laparotomy. 2. History of coronary artery disease, coronary artery bypass grafting, stent. 3. Diabetes mellitus, type 2. 4. Hypertension. 5. Hyperlipidemia. 6. History of seizures. 7. History of epistaxis. 8. History of appendectomy. 9. Remote history of nicotine dependence. RECOMMENDATIONS AND DISCUSSION: I recommend to continue current medication, continue symptomatic treatment. Otherwise, at this time I would recommend close monitoring with Surgery. Incentive spirometry. DVT prophylaxis. Further recommendations to follow. We will repeat labs also. MMODL / IJN: [id number] /
[2017-11-20] MEDS: HEPARIN SODIUM,PORCINE 5,000 UNIT/ML 1 ML VIAL SQ SCH (22:07)
[2017-11-20] MEDS: ZOLPIDEM 10 MG TAB PO SCH (22:09)
[2017-11-20] MEDS: traZODone HCL 100 MG TAB PO SCH (22:09)
[2017-11-21 07:02] LABS: Glucose,Whole Blood 118 mg/dL (75-99)
[2017-11-21] MEDS: SODIUM CHLORIDE 0.45% 1,000 ML IV SCH (07:09)
[2017-11-21] MEDS: INSULIN ASPART 100 UNIT/ML 1 ML 10 ML VIAL SQ SCH ×4 (07:50→21:46)
[2017-11-21 08:07] LABS: Basophils % (A) 0 %; Eosinophils # (A) 0.5 k/uL (0-0.7); Eosinophils % (A) 5 %; HCT 35.2 % (39.0-53.0); HGB 12.4 gm/dL (13.0-17.5); Lymphocytes # (A) 2.2 k/uL (1.0-4.8); Lymphocytes % (A) 22 %; MCH 31.1 pg (25.0-35.0); MCHC 35.2 g/dL (31.0-37.0); MCV 88.2 fL (80.0-100.0); Mean Platelet Volume 7.3; Monocytes # (A) 0.6 k/uL (0-1.0); Monocytes % (A) 6 %; Neutrophils # (A) 6.4 k/uL (1.3-7.7); Neutrophils % (A) 65 %; Platelet Count 237 k/uL (150-450); RDW 13.2 % (11.5-15.5)
[2017-11-21 08:21] LABS: Anion Gap 10 mmol/L; Blood Urea Nitrogen 18 mg/dL (9-20); Calcium 8.5 mg/dL (8.4-10.2); Carbon Dioxide 24 mmol/L (22-30); Chloride 105 mmol/L (98-107); Glucose 113 mg/dL (74-99); Potassium 3.4 mmol/L (3.5-5.1); Sodium 139 mmol/L (137-145)
--- NOTE | 2017-11-21 08:40 | P.PN ---
Subjective Principal diagnosis: Status post exploratory laparotomy The patient is feeling better today. He had a small bowel movement last night and this morning. He like to try something to eat. No nausea or vomiting. Passing some flatus. Objective - Vital Signs Vital signs: Vital Signs Temp 98.2 F 11/21/17 07:00 Pulse 54 L 11/21/17 07:00 Resp 16 11/21/17 07:00 BP 173/64 11/21/17 07:00 Pulse Ox 93 L 11/21/17 08:12 Intake & Output 11/20/17 11/21/17 11/21/17 18:59 06:59 18:59 Intake Total 200 1140 Output Total 900 600 Balance -700 540 Weight 102.965 kg Intake: Intake, IV Titration 600 Amount Sodium Chloride 0.45% 1, 600 000 ml @ 75 mls/hr IV . [id number] [facility] Rx#:[id number] Oral 200 540 Output: Urine 900 600 Uretheral (Patten) 350 Other: Voiding Method Indwelling Catheter # Voids 1 - Constitutional General appearance: Present: cooperative, no acute distress - Respiratory Respiratory: bilateral: CTA - Cardiovascular Rhythm: regular - Gastrointestinal General gastrointestinal: Present: distended (Minimally), normal bowel sounds, soft Localized gastrointestinal: surgical scar: diffuse (The incision is intact clean and dry. There is some abdominal wall ecchymosis without hematoma) - Labs CBC & Chem 7: 11/21/17 07:37 11/21/17 07:37 Labs: Abnormal Lab Results - Last 24 Hours (Table) 11/20/17 11/20/17 11/21/17 Range/Units 11:11 20:26 06:57 RBC (4.30-5.90) m/uL Hgb (13.0-17.5) gm/dL Hct (39.0-53.0) % Potassium (3.5-5.1) mmol/L Glucose (74-99) mg/dL POC Glucose (mg/dL) 152 H 102 H 118 H (75-99) mg/dL 11/21/17 11/21/17 Range/Units 07:37 07:37 RBC 4.00 L (4.30-5.90) m/uL Hgb 12.4 L (13.0-17.5) gm/dL Hct 35.2 L (39.0-53.0) % Potassium 3.4 L (3.5-5.1) mmol/L Glucose 113 H (74-99) mg/dL POC Glucose (mg/dL) (75-99) mg/dL Assessment and Plan (1) Small bowel obstruction Current Visit: Yes Status: Acute Code(s): K56.609 - UNSP INTESTNL OBST, UNSP TO PARTIAL VERSUS COMPLETE OBST SNOMED Code(s): 382230157 (2) Abdominal pain Current Visit: Yes Status: Acute Code(s): R10.9 - UNSPECIFIED ABDOMINAL PAIN SNOMED Code(s): 82092797 (3) Platelet dysfunction due to drugs Current Visit: Yes Status: Acute Code(s): D69.59 - OTHER SECONDARY THROMBOCYTOPENIA; T50.905A - ADVERSE EFFECT OF UNSP DRUG/MEDS/BIOL SUBST, INIT SNOMED Code(s): 77096217 (4) History of coronary artery disease Current Visit: Yes Status: Acute Code(s): Z86.79 - PERSONAL HISTORY OF OTHER DISEASES OF THE CIRCULATORY SYSTEM SNOMED Code(s): 362378759 (5) Diabetes Current Visit: Yes Status: Acute Code(s): E11.9 - TYPE 2 DIABETES MELLITUS WITHOUT COMPLICATIONS SNOMED Code(s): 87283818 (6) Seizure disorder Current Visit: Yes Status: Acute Code(s): G40.909 - EPILEPSY, UNSP, NOT INTRACTABLE, WITHOUT STATUS EPILEPTICUS SNOMED Code(s): 461792954 Plan: We'll decrease the rate of his IV fluids. Initiate a diet. If he tolerates a diet we'll Hep-Lock his IV later today. Also switch him over to pain pills. He is progressing slowly. Likely discharge in the next 2-3 days.
[2017-11-21] MEDS: HEPARIN SODIUM,PORCINE 5,000 UNIT/ML 1 ML VIAL SQ SCH ×2 (08:42→21:49)
[2017-11-21] MEDS: INSULIN DETEMIR 100 UNIT/ML 10 ML VIAL SQ SCH (08:42)
[2017-11-21] MEDS: FUROSEMIDE 40 MG TAB PO SCH (08:43)
[2017-11-21] MEDS: METOPROLOL TARTRATE 25 MG TAB PO SCH ×2 (08:43→21:49)
[2017-11-21] MEDS: LISINOPRIL 5 MG TAB PO SCH (08:43)
[2017-11-21] MEDS: ISOSORBIDE MONONITRATE ER 30 MG TAB.ER.24H PO SCH (08:43)
[2017-11-21] MEDS: HYDROcodone/APAP 5-325MG 1 EACH TAB PO PRN ×3 (10:26→19:35)
[2017-11-21 11:26] LABS: Glucose,Whole Blood 151 mg/dL (75-99)
[2017-11-21] MEDS ORDERED: Magnesium Replacement Protocol 1 EACH MISC MISCELLANE PRN (12:27)
[2017-11-21] MEDS ORDERED: Potassium Replacement Protocol 1 EACH MISC MISCELLANE PRN (12:27)
[2017-11-21] MEDS: POTASSIUM CHLORIDE ER 20 MEQ TAB.ER PO SCH ×4 (14:32→21:49)
[2017-11-21] MEDS: MAGNESIUM SULFATE-D5W PMX 1 GM in DEXTROSE/WATER 1 100ML.BAG IVPB SCH ×2 (15:04→16:08)
[2017-11-21 16:46] LABS: Glucose,Whole Blood 122 mg/dL (75-99)
[2017-11-21 21:03] LABS: Glucose,Whole Blood 120 mg/dL (75-99)
[2017-11-21] MEDS: ZOLPIDEM 10 MG TAB PO SCH (21:49)
[2017-11-21] MEDS: traZODone HCL 100 MG TAB PO SCH (21:49)
[2017-11-22] MEDS: POTASSIUM CHLORIDE ER 20 MEQ TAB.ER PO SCH ×2 (03:01→04:15)
[2017-11-22 04:28] LABS: Glucose,Whole Blood 112 mg/dL (75-99)
[2017-11-22] MEDS: HYDROcodone/APAP 5-325MG 1 EACH TAB PO PRN (05:31)
[2017-11-22] MEDS: hydrALAZINE HCL 20 MG/ML 1 ML VIAL IVP PRN (06:14)
[2017-11-22 06:55] LABS: Glucose,Whole Blood 112 mg/dL (75-99)
[2017-11-22] MEDS: INSULIN ASPART 100 UNIT/ML 1 ML 10 ML VIAL SQ SCH ×4 (08:21→20:14)
[2017-11-22] MEDS: SODIUM CHLORIDE 0.45% 1,000 ML IV SCH ×2 (08:25→12:47)
[2017-11-22] MEDS: INSULIN DETEMIR 100 UNIT/ML 10 ML VIAL SQ SCH (08:26)
[2017-11-22 08:27] LABS: Magnesium 1.7 mg/dL (1.6-2.3); Potassium 3.6 mmol/L (3.5-5.1)
[2017-11-22] MEDS: ISOSORBIDE MONONITRATE ER 30 MG TAB.ER.24H PO SCH (08:29)
[2017-11-22] MEDS: FUROSEMIDE 40 MG TAB PO SCH (08:29)
[2017-11-22] MEDS: LISINOPRIL 5 MG TAB PO SCH ×2 (08:29→20:17)
[2017-11-22] MEDS: METOPROLOL TARTRATE 25 MG TAB PO SCH (08:29)
[2017-11-22] MEDS: HEPARIN SODIUM,PORCINE 5,000 UNIT/ML 1 ML VIAL SQ SCH ×2 (08:30→20:16)
[2017-11-22] MEDS ORDERED: POTASSIUM CHLORIDE ER 20 MEQ TAB.ER PO STA (09:20)
[2017-11-22 11:06] LABS: Glucose,Whole Blood 198 mg/dL (75-99)
[2017-11-22 11:57] LABS: Anion Gap 14 mmol/L; Blood Urea Nitrogen 17 mg/dL (9-20); Calcium 8.7 mg/dL (8.4-10.2); Carbon Dioxide 19 mmol/L (22-30); Chloride 107 mmol/L (98-107); Glucose 114 mg/dL (74-99); Sodium 140 mmol/L (137-145)
[2017-11-22 12:01] LABS: Basophils # (A) 0.1 k/uL (0-0.2); Basophils % (A) 1 %; Eosinophils # (A) 0.6 k/uL (0-0.7); Eosinophils % (A) 6 %; HCT 37.4 % (39.0-53.0); HGB 12.8 gm/dL (13.0-17.5); Lymphocytes # (A) 2.3 k/uL (1.0-4.8); Lymphocytes % (A) 24 %; MCH 30.5 pg (25.0-35.0); MCHC 34.2 g/dL (31.0-37.0); MCV 89.3 fL (80.0-100.0); Mean Platelet Volume 7.6; Monocytes # (A) 0.4 k/uL (0-1.0); Monocytes % (A) 5 %; Neutrophils # (A) 6.1 k/uL (1.3-7.7); Neutrophils % (A) 64 %; Platelet Count 253 k/uL (150-450); RBC 4.19 m/uL (4.30-5.90); RDW 13.3 % (11.5-15.5); WBC 9.7 k/uL (3.8-10.6)
[2017-11-22] MEDS ORDERED: MAGNESIUM SULFATE-D5W PMX 1 GM in DEXTROSE/WATER 1 100ML.BAG IVPB ONE (14:00)
--- NOTE | 2017-11-22 14:55 | P.PN ---
Subjective Progress Note Date: 11/22/17 Patient seen and examined at bedside. He states that he is tolerating his diet. He has had bowel function with bowel movement and flatus. He states his abdominal distention is improving. He states pain is well-controlled. He states he has felt lightheaded secondary to he believes high blood pressure. Objective - Vital Signs Vital signs: Vital Signs Temp 98.1 F 11/22/17 08:22 Pulse 60 11/22/17 11:58 Resp 20 11/22/17 08:22 BP 176/68 11/22/17 11:58 Pulse Ox 95 11/22/17 08:22 Intake & Output 11/21/17 11/22/17 11/22/17 18:59 06:59 18:59 Intake Total 247 1560 300 Balance 247 1560 300 Intake: Oral 247 1560 300 Other: Voiding Method Toilet Toilet Toilet # Voids 2 3 - Constitutional General appearance: Present: cooperative, no acute distress - EENT Eyes: Present: PERRLA ENT: Present: hearing grossly normal - Neck Neck: Present: normal ROM - Respiratory Details: No difficulty with respiration - Gastrointestinal Gastrointestinal Comment(s): Soft, appropriate tenderness, nondistended, no rebound, no guarding, midline incision site clean, dry and intact with surrounding ecchymosis - Integumentary Integumentary Comment(s): Ecchymosis noted around midline incision - Musculoskeletal Musculoskeletal: Present: generalized weakness - Psychiatric Psychiatric: Present: A&O x's 3, appropriate affect - Labs CBC & Chem 7: 11/22/17 07:37 11/22/17 14:18 Labs: Abnormal Lab Results - Last 24 Hours (Table) 11/21/17 11/21/17 11/21/17 Range/Units 16:42 16:49 21:01 RBC (4.30-5.90) m/uL Hgb (13.0-17.5) gm/dL Hct (39.0-53.0) % Potassium 3.3 L (3.5-5.1) mmol/L Carbon Dioxide (22-30) mmol/L Glucose (74-99) mg/dL POC Glucose (mg/dL) 122 H 120 H (75-99) mg/dL 11/21/17 11/22/17 11/22/17 Range/Units 23:41 04:24 06:51 RBC (4.30-5.90) m/uL Hgb (13.0-17.5) gm/dL Hct (39.0-53.0) % Potassium 3.2 L (3.5-5.1) mmol/L Carbon Dioxide (22-30) mmol/L Glucose (74-99) mg/dL POC Glucose (mg/dL) 112 H 112 H (75-99) mg/dL 11/22/17 11/22/17 11/22/17 Range/Units 07:37 07:37 11:01 RBC 4.19 L (4.30-5.90) m/uL Hgb 12.8 L (13.0-17.5) gm/dL Hct 37.4 L (39.0-53.0) % Potassium (3.5-5.1) mmol/L Carbon Dioxide 19 L (22-30) mmol/L Glucose 114 H (74-99) mg/dL POC Glucose (mg/dL) 198 H (75-99) mg/dL Assessment and Plan (1) Small bowel obstruction Narrative/Plan: Patient is status post exploratory laparotomy for small bowel obstruction. He has been tolerating his diet and has had bowel function with bowel movement and flatus. We'll continue to treat pain. The patient does complain of hypertension today and I will await medical recommendations on treating hypertension. Likely discharge in one day. Current Visit: Yes Status: Acute Code(s): K56.609 - UNSP INTESTNL OBST, UNSP TO PARTIAL VERSUS COMPLETE OBST SNOMED Code(s): 155300972
[2017-11-22] MEDS ORDERED: MECLIZINE 12.5 MG TAB PO PRN (15:52)
[2017-11-22 17:23] LABS: Glucose,Whole Blood 81 mg/dL (75-99)
--- NOTE | 2017-11-22 17:45 | P.PN ---
Subjective Progress Note Date: 11/21/17 Progress note being dictated for Dr. Galloway. Interval history: This a 71-year-old gentleman admitted with partial small bowel obstruction, status post exploratory laparotomy and multiple other medical issues. Continues to do well. Small bowel movement both last night and again this morning. Denies nausea vomiting or diarrhea. Diet has been advanced as per surgery. Reports minimal left lower quadrant abdominal tenderness. Denies chest pain, palpitations or increasing shortness of breath. Afebrile. Objective - Vital Signs Vital signs: Vital Signs Temp 98 F 11/21/17 14:26 Pulse 54 L 11/21/17 14:26 Resp 16 11/21/17 14:26 BP 135/65 11/21/17 14:26 Pulse Ox 95 11/21/17 14:26 Intake & Output 11/20/17 11/21/17 11/21/17 18:59 06:59 18:59 Intake Total 200 1140 127 Output Total 900 600 Balance -700 540 127 Weight 102.965 kg Intake: Intake, IV Titration 600 Amount Sodium Chloride 0.45% 1, 600 000 ml @ 75 mls/hr IV . [id number] [facility] Rx#:[id number] Oral 200 540 127 Output: Urine 900 600 Uretheral (Patten) 350 Other: Voiding Method Indwelling Catheter Toilet # Voids 1 2 - Exam PHYSICAL EXAM: VITAL SIGNS: As above GENERAL: Sitting up in bed, no acute distress HEENT: Conjunctivae normal. eyes normal. Oral mucosal moist NECK: No JVD. No thyroid enlargement. No LNs CARDIOVASCULAR: S1, S2 muffled. No murmur RESPIRATION: Breath sounds diminished in the bases. No rhonchi or crackles. No bronchial breathing. ABDOMEN: Soft, status post surgery. No guarding. no masses palpable.Bowel sounds heard. LEGS: No edema. no swelling PSYCHIATRY: Alert and oriented -3, mood and affect normal. NERVOUS SYSTEM: Cranial N 2-12 grossly normal. Moves all 4 limbs. Diffuse weakness No focal deficits. Skin: no ulcer no rash Joints: No active swelling. No inflammation. - Labs CBC & Chem 7: 11/22/17 07:37 11/22/17 14:18 Labs: Abnormal Lab Results - Last 24 Hours (Table) 11/20/17 11/21/17 11/21/17 Range/Units 20:26 06:57 07:37 RBC 4.00 L (4.30-5.90) m/uL Hgb 12.4 L (13.0-17.5) gm/dL Hct 35.2 L (39.0-53.0) % Potassium (3.5-5.1) mmol/L Glucose (74-99) mg/dL POC Glucose (mg/dL) 102 H 118 H (75-99) mg/dL 11/21/17 11/21/17 11/21/17 Range/Units 07:37 11:21 16:42 RBC (4.30-5.90) m/uL Hgb (13.0-17.5) gm/dL Hct (39.0-53.0) % Potassium 3.4 L (3.5-5.1) mmol/L Glucose 113 H (74-99) mg/dL POC Glucose (mg/dL) 151 H 122 H (75-99) mg/dL 11/21/17 Range/Units 16:49 RBC (4.30-5.90) m/uL Hgb (13.0-17.5) gm/dL Hct (39.0-53.0) % Potassium 3.3 L (3.5-5.1) mmol/L Glucose (74-99) mg/dL POC Glucose (mg/dL) (75-99) mg/dL Assessment and Plan Assessment: 1. Abdominal pain, possibly partial small bowel obstruction, status post exploratory laparotomy 2. CAD, history of CABG, stent 3. Diabetes mellitus type 2 4. Hypertension 5. Hyperlipidemia 6. History of seizures Plan: Continue current medication regime ,monitoring and symptomatic treatment. Aggressive pulmonary toileting with incentive spirometer reinforced. Increase ambulation as tolerated with assistance. Follow closely with surgery. Further recommendations to follow. The impression and plan of care has been dictated as directed. : I performed a history and examination of this patient, discussed the same with the dictator. I agree with the dictator's note ,documented as a scribe. Any additional findings or plans will be noted.
--- NOTE | 2017-11-22 17:51 | P.PN ---
Subjective Progress Note Date: 11/22/17 Progress note being dictated for Dr. Riggins Interval history: This a 71-year-old gentleman admitted with partial small bowel obstruction, status post exploratory laparotomy and multiple other medical issues. Continues to do well. Small bowel movement both last night and again this morning. Denies nausea vomiting or diarrhea. Diet has been advanced as per surgery. Reports minimal left lower quadrant abdominal tenderness. Denies chest pain, palpitations or increasing shortness of breath. Afebrile. 11/22/17 tolerating diet with no nausea vomiting. Positive bowel movement this morning. Complaining of dizziness upon standing, negative for orthostatic hypotension. Hypertensive. Denies chest pain, palpitations or increasing shortness of breath. Objective - Vital Signs Vital signs: Vital Signs Temp 98.2 F 11/22/17 15:00 Pulse 71 11/22/17 15:00 Resp 16 11/22/17 15:00 BP 182/73 11/22/17 15:00 Pulse Ox 96 11/22/17 15:00 Intake & Output 11/21/17 11/22/17 11/22/17 18:59 06:59 18:59 Intake Total 247 1560 780 Output Total 300 Balance 247 1560 480 Intake: Oral 247 1560 780 Output: Urine 300 Other: Voiding Method Toilet Toilet Toilet # Voids 2 3 2 - Exam PHYSICAL EXAM: VITAL SIGNS: As above GENERAL: Sitting up in bed, no acute distress HEENT: Conjunctivae normal. eyes normal. Oral mucosal moist NECK: No JVD. No thyroid enlargement. No LNs CARDIOVASCULAR: S1, S2 muffled. No murmur RESPIRATION: Breath sounds diminished in the bases. No rhonchi or crackles. No bronchial breathing. ABDOMEN: Soft, status post surgery. No guarding. no masses palpable.Bowel sounds heard. LEGS: No edema. no swelling PSYCHIATRY: Alert and oriented -3, mood and affect normal. NERVOUS SYSTEM: Cranial N 2-12 grossly normal. Moves all 4 limbs. Diffuse weakness No focal deficits. Skin: no ulcer no rash Joints: No active swelling. No inflammation. - Labs CBC & Chem 7: 11/22/17 07:37 11/22/17 14:18 Labs: Abnormal Lab Results - Last 24 Hours (Table) 11/21/17 11/21/17 11/22/17 Range/Units 21:01 23:41 04:24 RBC (4.30-5.90) m/uL Hgb (13.0-17.5) gm/dL Hct (39.0-53.0) % Potassium 3.2 L (3.5-5.1) mmol/L Carbon Dioxide (22-30) mmol/L Glucose (74-99) mg/dL POC Glucose (mg/dL) 120 H 112 H (75-99) mg/dL 11/22/17 11/22/17 11/22/17 Range/Units 06:51 07:37 07:37 RBC 4.19 L (4.30-5.90) m/uL Hgb 12.8 L (13.0-17.5) gm/dL Hct 37.4 L (39.0-53.0) % Potassium (3.5-5.1) mmol/L Carbon Dioxide 19 L (22-30) mmol/L Glucose 114 H (74-99) mg/dL POC Glucose (mg/dL) 112 H (75-99) mg/dL 11/22/17 Range/Units 11:01 RBC (4.30-5.90) m/uL Hgb (13.0-17.5) gm/dL Hct (39.0-53.0) % Potassium (3.5-5.1) mmol/L Carbon Dioxide (22-30) mmol/L Glucose (74-99) mg/dL POC Glucose (mg/dL) 198 H (75-99) mg/dL Assessment and Plan Assessment: 1. Abdominal pain, possibly partial small bowel obstruction, status post exploratory laparotomy 2. CAD, history of CABG, stent 3. Diabetes mellitus type 2 4. Hypertension 5. Hyperlipidemia 6. History of seizures Plan: Continue current medication regime ,monitoring and symptomatic treatment. Beta sameera dose increased, MADONNA inhibitor frequency increased, PRN Antivert added to med regime .Close monitoring of blood pressure. Aggressive pulmonary toileting with incentive spirometer reinforced. Increase ambulation as tolerated with assistance. Discharge planning in progress for tomorrow as per surgery. Further recommendations to follow. The impression and plan of care has been dictated as directed. : I performed a history and examination of this patient, discussed the same with the dictator. I agree with the dictator's note ,documented as a scribe. Any additional findings or plans will be noted.
[2017-11-22 20:05] LABS: Glucose,Whole Blood 145 mg/dL (75-99)
[2017-11-22] MEDS: METOPROLOL TARTRATE 50 MG TAB PO SCH (20:17)
[2017-11-22] MEDS: traZODone HCL 100 MG TAB PO SCH (21:30)
[2017-11-22] MEDS: ZOLPIDEM 10 MG TAB PO SCH (21:30)
[2017-11-23] MEDS: SODIUM CHLORIDE 0.45% 1,000 ML IV SCH ×2 (01:11→09:13)
[2017-11-23 07:11] LABS: Magnesium 1.7 mg/dL (1.6-2.3)
[2017-11-23 07:17] LABS: Glucose,Whole Blood 131 mg/dL (75-99)
[2017-11-23] MEDS: INSULIN ASPART 100 UNIT/ML 1 ML 10 ML VIAL SQ SCH ×4 (07:19→22:07)
[2017-11-23] MEDS: HEPARIN SODIUM,PORCINE 5,000 UNIT/ML 1 ML VIAL SQ SCH ×2 (08:25→22:06)
[2017-11-23] MEDS: INSULIN DETEMIR 100 UNIT/ML 10 ML VIAL SQ SCH (08:25)
[2017-11-23] MEDS: METOPROLOL TARTRATE 50 MG TAB PO SCH ×2 (08:26→22:06)
[2017-11-23] MEDS: FUROSEMIDE 40 MG TAB PO SCH (08:26)
[2017-11-23] MEDS: LISINOPRIL 5 MG TAB PO SCH ×2 (08:26→22:06)
[2017-11-23] MEDS: ISOSORBIDE MONONITRATE ER 30 MG TAB.ER.24H PO SCH (08:26)
[2017-11-23] MEDS: HYDROcodone/APAP 5-325MG 1 EACH TAB PO PRN (09:41)
[2017-11-23] MEDS: amLODIPine 2.5 MG TAB PO SCH (10:47)
[2017-11-23 11:26] LABS: Glucose,Whole Blood 191 mg/dL (75-99)
--- NOTE | 2017-11-23 14:23 | P.PN ---
Subjective Progress Note Date: 11/23/17 Patient seen and examined at bedside. States he had a large bowel movement. Tolerating his regular diet. Denies any nausea and vomiting. Pain is well- controlled. States he does not feel lightheaded and his blood pressure is better controlled. Objective - Vital Signs Vital signs: Vital Signs Temp 97.9 F 11/23/17 07:00 Pulse 63 11/23/17 09:39 Resp 16 11/23/17 07:00 BP 145/63 11/23/17 11:59 Pulse Ox 97 11/23/17 07:00 Intake & Output 11/22/17 11/23/17 11/23/17 18:59 06:59 18:59 Intake Total 780 800 200 Output Total 300 Balance 480 800 200 Weight 102.965 kg Intake: Oral 780 800 200 Output: Urine 300 Other: Voiding Method Toilet Toilet # Voids 2 1 # Bowel Movements 1 - Constitutional General appearance: Present: cooperative, no acute distress - EENT Eyes: Present: PERRLA ENT: Present: hearing grossly normal - Respiratory Details: No difficulty with respiration - Gastrointestinal Gastrointestinal Comment(s): Soft, appropriate tenderness, nondistended, no rebound, no guarding, incision site clean, dry and intact with homero in place and some surrounding ecchymosis - Musculoskeletal Musculoskeletal: Present: generalized weakness - Psychiatric Psychiatric: Present: A&O x's 3 - Labs CBC & Chem 7: 11/22/17 07:37 11/23/17 06:42 Labs: Abnormal Lab Results - Last 24 Hours (Table) 11/22/17 11/23/17 11/23/17 Range/Units 19:57 07:04 11:21 POC Glucose (mg/dL) 145 H 131 H 191 H (75-99) mg/dL Assessment and Plan (1) Small bowel obstruction Narrative/Plan: Patient is status post exploratory laparotomy for small bowel obstruction. He has been tolerating his diet and has had bowel function with bowel movement and flatus. Hypertension improved. At this point the patient is surgically stable for discharge. [place] will be removed in the office. He is to follow-up in 7- 10 days. Medical management. Current Visit: Yes Status: Acute Code(s): K56.609 - UNSP INTESTNL OBST, UNSP TO PARTIAL VERSUS COMPLETE OBST SNOMED Code(s): 706544355
--- NOTE | 2017-11-23 17:06 | P.PN ---
Subjective Progress Note Date: 11/23/17 Progress note being dictated for Dr. Riggins Interval history: This a 71-year-old gentleman admitted with partial small bowel obstruction, status post exploratory laparotomy and multiple other medical issues. Continues to do well. Small bowel movement both last night and again this morning. Denies nausea vomiting or diarrhea. Diet has been advanced as per surgery. Reports minimal left lower quadrant abdominal tenderness. Denies chest pain, palpitations or increasing shortness of breath. Afebrile. 11/22/17 tolerating diet with no nausea vomiting. Positive bowel movement this morning. Complaining of dizziness upon standing, negative for orthostatic hypotension. Hypertensive. Denies chest pain, palpitations or increasing shortness of breath. 11/23/17 hypertensive, improving. Sitting up in chair, less dizziness. Tolerating diet with no nausea or vomiting. Positive bowel movement today, loose , non-diarrhea. Pain controlled. Objective - Vital Signs Vital signs: Vital Signs Temp 97.5 F L 11/23/17 14:56 Pulse 59 L 11/23/17 14:56 Resp 20 11/23/17 14:56 BP 145/56 11/23/17 14:56 Pulse Ox 95 11/23/17 14:56 Intake & Output 11/22/17 11/23/17 11/23/17 18:59 06:59 18:59 Intake Total 670 634 6222 Output Total 300 Balance 876 183 6543 Weight 102.965 kg Intake: Oral 662 330 8350 Output: Urine 300 Other: Voiding Method Toilet Toilet # Voids 2 1 2 # Bowel Movements 1 1 - Exam PHYSICAL EXAM: VITAL SIGNS: As above GENERAL: Sitting up in a chair, no acute distress HEENT: Conjunctivae normal. eyes normal. Oral mucosal moist NECK: No JVD. No thyroid enlargement. No LNs CARDIOVASCULAR: S1, S2 muffled. No murmur RESPIRATION: Breath sounds diminished in the bases. No rhonchi or crackles. No bronchial breathing. ABDOMEN: Soft, status post surgery. No guarding. no masses palpable.Bowel sounds heard. LEGS: No edema. no swelling PSYCHIATRY: Alert and oriented -3, mood and affect normal. NERVOUS SYSTEM: Cranial N 2-12 grossly normal. Moves all 4 limbs. Diffuse weakness No focal deficits. Skin: no ulcer no rash Joints: No active swelling. No inflammation. - Labs CBC & Chem 7: 11/22/17 07:37 11/23/17 06:42 Labs: Abnormal Lab Results - Last 24 Hours (Table) 11/22/17 11/23/17 11/23/17 Range/Units 19:57 07:04 11:21 POC Glucose (mg/dL) 145 H 131 H 191 H (75-99) mg/dL Assessment and Plan Assessment: 1. Abdominal pain, possibly partial small bowel obstruction, status post exploratory laparotomy 2. CAD, history of CABG, stent 3. Diabetes mellitus type 2 4. Hypertension 5. Hyperlipidemia 6. History of seizures Plan: Continue current medication regime ,monitoring and symptomatic treatment. Small dose of Norvasc added to med-regime.Close monitoring of blood pressure. Aggressive pulmonary toileting with incentive spirometer reinforced. Increase ambulation as tolerated. Discharge planning in progress for tomorrow. The impression and plan of care has been dictated as directed. : I performed a history and examination of this patient, discussed the same with the dictator. I agree with the dictator's note ,documented as a scribe. Any additional findings or plans will be noted.
[2017-11-23 17:20] LABS: Glucose,Whole Blood 75 mg/dL (75-99)
[2017-11-23 21:07] LABS: Glucose,Whole Blood 115 mg/dL (75-99)
[2017-11-23] MEDS: traZODone HCL 100 MG TAB PO SCH (22:06)
[2017-11-23] MEDS: ZOLPIDEM 10 MG TAB PO SCH (22:06)
[2017-11-24 07:12] LABS: Glucose,Whole Blood 103 mg/dL (75-99)
[2017-11-24 08:02] VITALS: RESP 18; TEMP 98.1
[2017-11-24] MEDS: INSULIN ASPART 100 UNIT/ML 1 ML 10 ML VIAL SQ SCH ×2 (08:06→12:53)
[2017-11-24] MEDS: LISINOPRIL 5 MG TAB PO SCH (09:08)
[2017-11-24] MEDS: amLODIPine 2.5 MG TAB PO SCH (09:08)
[2017-11-24] MEDS: ISOSORBIDE MONONITRATE ER 30 MG TAB.ER.24H PO SCH (09:08)
[2017-11-24] MEDS: FUROSEMIDE 40 MG TAB PO SCH (09:08)
[2017-11-24] MEDS: HEPARIN SODIUM,PORCINE 5,000 UNIT/ML 1 ML VIAL SQ SCH (09:09)
[2017-11-24] MEDS: INSULIN DETEMIR 100 UNIT/ML 10 ML VIAL SQ SCH (09:09)
[2017-11-24] MEDS: METOPROLOL TARTRATE 50 MG TAB PO SCH (09:17)
[2017-11-24 09:18] VITALS: PULSE 60
[2017-11-24 10:55] VITALS: BP 162/68
[2017-11-24 11:03] LABS: Basophils # (A) 0.1 k/uL (0-0.2); Basophils % (A) 1 %; Eosinophils # (A) 0.7 k/uL (0-0.7); Eosinophils % (A) 6 %; HCT 38.3 % (39.0-53.0); HGB 12.7 gm/dL (13.0-17.5); Lymphocytes # (A) 2.7 k/uL (1.0-4.8); Lymphocytes % (A) 25 %; MCH 29.9 pg (25.0-35.0); MCHC 33.3 g/dL (31.0-37.0); MCV 89.9 fL (80.0-100.0); Mean Platelet Volume 7.2; Monocytes # (A) 0.6 k/uL (0-1.0); Monocytes % (A) 6 %; Neutrophils # (A) 6.5 k/uL (1.3-7.7); Neutrophils % (A) 61 %; Platelet Count 330 k/uL (150-450); RBC 4.26 m/uL (4.30-5.90); RDW 13.6 % (11.5-15.5); WBC 10.7 k/uL (3.8-10.6)
[2017-11-24 11:08] LABS: Glucose,Whole Blood 192 mg/dL (75-99)
[2017-11-24 11:24] LABS: Anion Gap 13 mmol/L; Blood Urea Nitrogen 14 mg/dL (9-20); Calcium 9.4 mg/dL (8.4-10.2); Carbon Dioxide 25 mmol/L (22-30); Chloride 103 mmol/L (98-107); Glucose 192 mg/dL (74-99); Magnesium 1.6 mg/dL (1.6-2.3); Potassium 4.3 mmol/L (3.5-5.1); Sodium 141 mmol/L (137-145)
[2017-11-24] MEDS ORDERED: Magnesium Replacement Protocol 1 EACH MISC MISCELLANE PRN (14:10)
--- NOTE | 2017-11-25 09:05 | DS ---
DISCHARGE SUMMARY DATE OF SERVICE: 11/24/2017 FINAL DIAGNOSES: 1. Abdominal pain possible partial small-bowel obstruction, status post exploratory laparotomy, patient improved. 2. Coronary artery disease, history of CABG and stent. 3. Hypertension, accelerated hypertension and dizziness. 4. Diabetes mellitus type 2. 5. History of seizure disorder. DISCHARGE DISPOSITION: The patient is being discharged in stable condition with guarded prognosis. HISTORY OF PRESENT ILLNESS: This 71-year-old gentleman with past medical history as mentioned admitted with partial small bowel obstruction. Patient underwent surgery as recommended earlier. Please refer to surgical notes for further information. Otherwise the patient also had dizziness and elevated blood pressure, which was monitored significantly. Patient improved significantly. On exam, vitals are stable. CARDIOVASCULAR: S1, S2 normal. ABDOMEN: Soft, status post surgery. LEGS: No edema. NERVOUS SYSTEM: No focal deficits. DISCHARGE ADVICE: 1. Diet cardiac. 2. Activity limited until followup. 3. Follow up with in 2-3 days. 4. Follow up with Surgery as advised. 5. Follow up with Home Care. MEDICATIONS: 1. Zyloprim 100 mg p.o. daily. 2. Norvasc 2.5 mg daily. 3. Ecotrin 81 mg p.o. daily. 4. Lipitor 40 mg p.o. daily. 5. Z-BEC 1 p.o. daily. 6. Celexa 40 mg p.o. daily. 7. Plavix 75 mg p.o. Monday, Monday and Monday. 8. Lasix 60 mg p.o. daily. 9. Lopid 600 mg p.o. b.i.d. 10.[place] 5 mg q.6h p.r.n. 11.Lantus 70 units subcu daily. 12.Imdur ER 30 mg p.o. daily. 13.Zestril 5 mg p.o. b.i.d. 14.Antivert 12.5 mg t.i.d. p.r.n. 15.Glucophage 500 mg q.h.s. 16.Lopressor 50 mg p.o. b.i.d. 18.Desyrel 100 mg q.h.s. 19.Ambien 10 mg q.h.s. The rest of the recommendations per Surgery. MMODL / IJN: [id number] / MTDD
== END 2017-11-24 15:45 | disposition home health service (06) | DRG 357 ==
LOC: EC 19:12 → 3SUR 21:31
PROVIDERS: ADMIT Internal Medicine; ATTEND Internal Medicine
PROC: 0D9670Z Drainage of Stomach with Drainage Device, Via Natural or Artificial Opening (ICD-10-PCS; 2017-11-15)
PROC: 0WJP0ZZ Inspection of Gastrointestinal Tract, Open Approach (ICD-10-PCS; principal; 2017-11-16 11:10)
DX: K56.600 Partial intestinal obstruction, unspecified as to cause (principal); E87.0 Hyperosmolality and hypernatremia; D69.1 Qualitative platelet defects; E11.65 Type 2 diabetes mellitus with hyperglycemia; G40.409 Other generalized epilepsy and epileptic syndromes, not intractable, without status epilepticus; E78.5 Hyperlipidemia, unspecified; I10 Essential (primary) hypertension; T45.525A Adverse effect of antithrombotic drugs, initial encounter; T39.015A Adverse effect of aspirin, initial encounter; I25.10 Atherosclerotic heart disease of native coronary artery without angina pectoris; Z87.891 Personal history of nicotine dependence; Z95.1 Presence of aortocoronary bypass graft; Z95.5 Presence of coronary angioplasty implant and graft; Z90.49 Acquired absence of other specified parts of digestive tract; Z79.02 Long term (current) use of antithrombotics/antiplatelets; Z79.82 Long term (current) use of aspirin; Z79.4 Long term (current) use of insulin; Z79.899 Other long term (current) drug therapy; Z88.1 Allergy status to other antibiotic agents; Z88.8 Allergy status to other drugs, medicaments and biological substances
CPT/HCPCS: 36415; 71045; 74177; 80048; 80053; 81001; 82150; 83036; 83605; 83690; 83735; 83880; 84132; 85025; 85610; 85730; 86850; 86900; 86901; 93005; 94760; 94762; 96361; 96374; 96375; 96376; 99285

== ENCOUNTER 2018-08-17 21:20 | Emergency (ER) | payer MEDICARE, BC ==
[2018-08-17] MEDS ORDERED: cloNIDine HCL 0.1 MG TAB PO STA (22:01)
[2018-08-17] MEDS ORDERED: OXYMETAZOLINE 0.05% NASL SPRAY 1 SPRAY BOTTLE NASAL STA (22:01)
[2018-08-17 23:12] LABS: Basophils # (A) 0.1 k/uL (0-0.2); Basophils % (A) 1 %; Eosinophils # (A) 0.4 k/uL (0-0.7); Eosinophils % (A) 4 %; HCT 43.1 % (39.0-53.0); HGB 14.6 gm/dL (13.0-17.5); Lymphocytes # (A) 3.1 k/uL (1.0-4.8); Lymphocytes % (A) 37 %; MCH 31.3 pg (25.0-35.0); MCHC 33.9 g/dL (31.0-37.0); MCV 92.2 fL (80.0-100.0); Mean Platelet Volume 7.4; Monocytes # (A) 0.4 k/uL (0-1.0); Monocytes % (A) 5 %; Neutrophils # (A) 4.2 k/uL (1.3-7.7); Neutrophils % (A) 50 %; Platelet Count 194 k/uL (150-450); RBC 4.67 m/uL (4.30-5.90); WBC 8.4 k/uL (3.8-10.6)
--- NOTE | 2018-08-17 23:24 | ED ---
ENT HPI - General Chief complaint: ENT Stated complaint: nose bleed Time Seen by Provider: 08/17/18 21:58 Source: patient, family Mode of arrival: ambulatory Limitations: no limitations - History of Present Illness Initial comments: This patient is 72-year-old man with history of previous nosebleeds, who presents to be evaluated for the same. The patient states that around 6 PM he blew his nose and then developed right-sided epistaxis. He states that he tried multiple things at home to stop the bleeding but was unsuccessful. He tried pressure, he tried applying ice, he tried elevating his head. The patient has had these intermittently around the time that the weather gets cold in the air becomes back tender pulp drier. He states that he does take Plavix and believes this may be causing things to continue. He is not having any symptoms associated with anemia, including no palpitations, chest pain, dyspnea, diaphoresis, orthostasis, lightheadedness or syncope. There is no pain. No fever or chills. No sinus type symptoms. MD complaint: epistaxis Onset/Timin -: hour(s) Location: nose Severity: moderate Improves with: pressure Worsens with: none Context-Epistaxis: other (Plavix) - Related Data Home Medications Medication Instructions Recorded Confirmed Aspirin EC [Ecotrin Low Dose] 81 mg PO DAILY 01/19/16 08/17/18 Atorvastatin [Lipitor] 40 mg PO DAILY 01/19/16 08/17/18 B Complex-Vit C-Vit E-Zinc [Z-Bec] 1 tab PO DAILY 01/19/16 08/17/18 Clopidogrel [Plavix] 75 mg PO MOWEFR 01/19/16 08/17/18 Furosemide [Lasix] 60 mg PO DAILY 01/19/16 08/17/18 Gemfibrozil [Lopid] 600 mg PO BID 01/19/16 08/17/18 Insulin Glargine [Lantus] 70 units SQ DAILY 01/19/16 08/17/18 Isosorbide Mononitrate ER [Imdur] 30 mg PO DAILY 01/19/16 08/17/18 Multivitamins, Thera [Multivitamin 1 tab PO DAILY 01/19/16 08/17/18 (formulary)] Zolpidem [Ambien] 10 mg PO HS 01/19/16 08/17/18 metFORMIN HCL [Glucophage] 500 mg PO HS 01/19/16 08/17/18 traZODone HCL [Desyrel] 100 mg PO HS 01/19/16 08/17/18 Allopurinol [Zyloprim] 100 mg PO DAILY 11/15/17 08/17/18 Citalopram Hydrobromide [CeleXA] 40 mg PO DAILY 11/15/17 08/17/18 Insulin Aspart [NovoLOG] 20 unit SQ AC-BRKFST 08/17/18 08/17/18 Insulin Aspart [NovoLOG] 20 unit SQ AC-SUPPER 08/17/18 08/17/18 Previous Rx's Medication Instructions Recorded Lisinopril [Zestril] 5 mg PO BID #60 tab 11/23/17 amLODIPine [Norvasc] 2.5 mg PO DAILY #30 tab 11/23/17 Metoprolol Tartrate [Lopressor] 50 mg PO BID #60 tab 11/24/17 Allergies Allergy/AdvReac Type Severity Reaction Status Date / Time ciprofloxacin [From Cipro] Allergy Unknown Verified 08/17/18 22:28 ciprofloxacin HCl Allergy Unknown Verified 08/17/18 22:28 [From Cipro] ezetimibe [From Vytorin] Allergy Unknown Verified 08/17/18 22:28 indomethacin [From Indocin] Allergy Unknown Verified 08/17/18 22:28 indomethacin sodium Allergy Unknown Verified 08/17/18 22:28 [From Indocin] lamotrigine [From Lamictal] Allergy Unknown Verified 08/17/18 22:28 simvastatin [From Vytorin] Allergy Unknown Verified 08/17/18 22:28 Review of Systems ROS Statement: Those systems with pertinent positive or pertinent negative responses have been documented in the HPI. ROS Other: All systems not noted in ROS Statement are negative. Constitutional: Denies: fever ENT: Reports: epistaxis. Denies: congestion Respiratory: Denies: cough, dyspnea Cardiovascular: Denies: chest pain, palpitations, syncope Gastrointestinal: Denies: vomiting Hematological/Lymphatic: Denies: easy bleeding Past Medical History Past Medical History: Coronary Artery Disease (CAD), Chest Pain / Angina, Diabetes Mellitus, Hyperlipidemia, Hypertension, Seizure Disorder Additional Past Medical History / Comment(s): IDDM, last grand mal seizure 2003 , epistaxis. History of Any Multi-Drug Resistant Organisms: None Reported Past Surgical History: Appendectomy, Coronary Bypass/CABG, Heart Catheterization With Stent Additional Past Surgical History / Comment(s): PCI with stents (pt thinks 2 total stents) with last stent placed 03/13/14, angioplasties x 3, 02/19/07 CABG-4 vessel, colonoscopy-normal. Past Anesthesia/Blood Transfusion Reactions: No Reported Reaction Date of Last Stent Placement:: 03/13/14 Past Psychological History: No Psychological Hx Reported Smoking Status: Former smoker Past Alcohol Use History: None Reported Past Drug Use History: None Reported - Past Family History Father Family Medical History: Cancer Additional Family Medical History / Comment(s): Father of leukemia at the age of 67 yrs. Mother Family Medical History: Cancer, Dementia Additional Family Medical History / Comment(s): Mother had retinal cancer. She of dementia at the age of 89yrs. General Exam Limitations: no limitations General appearance: alert, in no apparent distress Head exam: Present: atraumatic, normocephalic Eye exam: Present: normal appearance ENT exam: Present: normal oropharynx, other (There is right sided epistaxis. There is blood along the septum. Exam does reveal anterior source of blood.) Neck exam: Present: normal inspection, full ROM Respiratory exam: Present: normal lung sounds bilaterally. Absent: respiratory distress, wheezes, rales, rhonchi, stridor Cardiovascular Exam: Present: regular rate, normal rhythm, normal heart sounds. Absent: systolic murmur, diastolic murmur, rubs, gallop Skin exam: Present: warm, dry, intact, normal color. Absent: rash Course Vital Signs 08/17/18 21:44 Temperature 98.1 F Pulse Rate 62 Respiratory 20 Rate Blood Pressure 154/65 O2 Sat by Pulse 97 Oximetry Medical Decision Making - Medical Decision Making After visualizing the anterior source of blood, I did apply Afrin spray directly which stop the bleeding and then used silver nitrate cautery. Patient then observed with no further bleeding. - Lab Data Result diagrams: 08/17/18 22:37 Lab Results 08/17/18 Range/Units 22:37 WBC 8.4 (3.8-10.6) k/uL RBC 4.67 (4.30-5.90) m/uL Hgb 14.6 (13.0-17.5) gm/dL Hct 43.1 (39.0-53.0) % MCV 92.2 (80.0-100.0) fL MCH 31.3 (25.0-35.0) pg MCHC 33.9 (31.0-37.0) g/dL RDW 13.0 (11.5-15.5) % Plt Count 194 (150-450) k/uL Neutrophils % 50 % Lymphocytes % 37 % Monocytes % 5 % Eosinophils % 4 % Basophils % 1 % Neutrophils # 4.2 (1.3-7.7) k/uL Lymphocytes # 3.1 (1.0-4.8) k/uL Monocytes # 0.4 (0-1.0) k/uL Eosinophils # 0.4 (0-0.7) k/uL Basophils # 0.1 (0-0.2) k/uL Disposition Clinical Impression: Epistaxis Disposition: HOME SELF-CARE Condition: Good Instructions: Nosebleed (ED) Is patient prescribed a controlled substance at d/c from ED?: No Referrals: Josemanuel Pacheco DO [Primary Care Provider] - 1-2 days Tariq Babb MD [STAFF PHYSICIAN] - 1-2 days
[2018-08-17 23:53] LABS: Partial Thromboplastin Time 24.8 sec (22.0-30.0); Prothrombin Time 10.9 sec (9.0-12.0)
[2018-08-18 01:28] VITALS: BP 155/69; PULSE 56; RESP 16; TEMP 98.2
== END 2018-08-18 01:28 | disposition home or self-care (01) ==
LOC: EC 21:20
DX: R04.0 Epistaxis (principal); I25.10 Atherosclerotic heart disease of native coronary artery without angina pectoris; E11.9 Type 2 diabetes mellitus without complications; E78.5 Hyperlipidemia, unspecified; I10 Essential (primary) hypertension; Z95.1 Presence of aortocoronary bypass graft; Z95.5 Presence of coronary angioplasty implant and graft; Z87.891 Personal history of nicotine dependence; Z79.82 Long term (current) use of aspirin; Z79.02 Long term (current) use of antithrombotics/antiplatelets; Z79.4 Long term (current) use of insulin; Z79.899 Other long term (current) drug therapy; Z88.1 Allergy status to other antibiotic agents; Z88.8 Allergy status to other drugs, medicaments and biological substances; Z88.6 Allergy status to analgesic agent
CPT/HCPCS: 30901; 36415; 85025; 85610; 85730; 99283

== ENCOUNTER → 2020-10-05 | Outpatient (CLI) | payer MEDICARE, BC ==
[2020-10-05 11:35] LABS: African American GFR (CKD) >90 (>60 ml/min/1.73 sqM); Anion Gap 8 mmol/L; Blood Urea Nitrogen 19 mg/dL (9-20); Carbon Dioxide 29 mmol/L (22-30); Chloride 104 mmol/L (98-107); Non-African American GFR(CKD) 83 (>60 ml/min/1.73 sqM); Potassium 4.6 mmol/L (3.5-5.1); Sodium 141 mmol/L (137-145)
[2020-10-05 11:52] LABS: Basophils # (A) 0.1 k/uL (0-0.2); Basophils % (A) 1 %; Eosinophils # (A) 0.4 k/uL (0-0.7); Eosinophils % (A) 4 %; HCT 46.1 % (39.0-53.0); HGB 15.8 gm/dL (13.0-17.5); Lymphocytes % (A) 33 %; MCH 31.9 pg (25.0-35.0); MCHC 34.3 g/dL (31.0-37.0); Mean Platelet Volume 7.3; Monocytes # (A) 0.5 k/uL (0-1.0); Monocytes % (A) 6 %; Neutrophils # (A) 5.1 k/uL (1.3-7.7); Neutrophils % (A) 55 %; Platelet Count 198 k/uL (150-450); RBC 4.96 m/uL (4.30-5.90); RDW 12.7 % (11.5-15.5); WBC 9.3 k/uL (3.8-10.6)
== END | disposition home or self-care (01) ==
LOC: LABPAT 10:11
PROVIDERS: ATTEND Surgery
DX: Z01.818 Encounter for other preprocedural examination (principal); I65.23 Occlusion and stenosis of bilateral carotid arteries
CPT/HCPCS: 36415; 80051; 82565; 84520; 85025

== ENCOUNTER 2020-10-13 07:37 | Day surgery (SDC) | payer MEDICARE, BC ==
[2020-10-08 16:05] VITALS: BMI 32.7
[~2020-10-13 07:37] MED LIST: ALPRAZolam 0.25 MG TAB PO PRN; ASPIRIN 325 MG TAB PO PRN; SODIUM CHLORIDE 0.9% 1,000 ML in EMPTY BAG 1 BAG IV ONE
[2020-10-13] MEDS ORDERED: SODIUM CHLORIDE 0.9% 1,000 ML IV ONE (07:57)
[2020-10-13] MEDS ORDERED: LIDOCAINE 1% INJ 10MG/ML (20 ML MDV) ONE (08:14)
[2020-10-13 08:16] LABS: Glucose,Whole Blood 182 mg/dL (75-99)
[2020-10-13 08:22] VITALS: RESP 16; TEMP 97.7
[2020-10-13] MEDS: MIDAZOLAM 2 MG/2 ML VIAL IV ONE ×2 (08:42→09:13)
[2020-10-13] MEDS ORDERED: LIDOCAINE 1% INJ 10MG/ML (20 ML MDV) SQ ONE (08:42)
[2020-10-13] MEDS ORDERED: IOPAMIDOL-250 50ML BTL INTRAARTER ONE (09:38)
[2020-10-13] MEDS ORDERED: IOPAMIDOL-250 100ML BTL INTRAARTER ONE ×2 (09:38)
--- NOTE | 2020-10-13 10:32 | IR ---
Fluoroscopy HISTORY: Pain in leg 7.8 minutes fluoroscopy time supplied to the referring clinician. 130 intraoperative C-arm images do cument the procedure. See dictated report from vascular surgery.
--- NOTE | 2020-10-13 11:13 | P.OP ---
Description of Procedure: Preoperative diagnosis: Disabling claudication, Maries classification 3, right carotid stenosis Postop diagnosis: #1 disabling claudication, Maries classification 3, right carotid stenosis. #2 right ICA stenosis greater than 95% #3 right SFA MACHINE PECAN PICKER #4 left SFA stenosis greater than 90% Procedure: #1 Aortogram with bilateral lower extremity runoffs via right common femoral artery access under ultrasound guidance #2 arch aortogram with selective bilateral carotid angiograms Surgeon: Jess Anesthesia: Moderate sedation times 54 minutes Estimated blood loss: 5 mL Complications: None Condition: Stable Findings: Aorta: Patent without significant calcification nor stenosis. Bilateral renal arteries are patent without stenosis. Aortic arch demonstrates mild calcific atherosclerotic disease. Carotid: Right brachiocephalic artery is patent without significant calcifications. Subclavian artery is patent without stenosis. Right internal carotid artery demonstrates greater than 95% stenosis with large amount of calcification. Left ICA demonstrates 50-60% stenosis. Left subclavian artery is patent without any significant atherosclerotic disease. Iliacs: Bilateral common iliac, internal iliac and external iliac arteries are patent with out significant stenosis. Right internal iliac artery does demonstrate some atherosclerotic disease and calcification. Femorals: Bilateral common femoral and profundus femoris arteries are patent with minimal atherosclerotic disease. Right superficial femoral artery is patent to the Calvin's canal and then a MACHINE PECAN PICKER is noted with reconstitution of above-knee popliteal. Left superficial femoral artery demonstrates 2 areas of stenosis greater than 90%. Popliteal: Patent without any significant atherosclerotic disease or stenosis. Tibials: Right tibioperoneal trunk is patent with three-vessel takeoff and two- vessel runoff to the ankle. Left tibial peroneal trunk is patent with two- vessel takeoff and one-vessel to the ankle which is the anterior tibial artery. The posterior tibial artery on the left is occluded. Operative narrative: After written informed consent was obtained the patient all risks benefits competitions were described the patient is brought to the Dope Edger and laid in a supine position. The area of the right groin was prepped and draped in the usual sterile fashion. Local anesthesia with moderate sedation was performed with continuous pulse ox monitoring and EKG monitoring. Utilizing ultrasound the right common femoral artery was visualized and shown to be patent without any significant plaque. Utilizing a multipurpose needle under ultrasound guidance the artery was accessed. Guidewire was placed followed by 5-Fijian sheath. 035 Glidewire was then placed into the aorta followed by pigtail catheter. Arch Angiogram was then obtained. Guidewire was then placed followed by a JB2 catheter and the right brachiocephalic artery was accessed and wire was placed to the common carotid artery. Selective right carotid angiogram was obtained with multiple views to visualize the takeoff and bifurcation. There is significant stenosis noted greater than 95%. The catheter was then withdrawn and placed in the left common carotid artery and angiogram was obtained of the left demonstrating 50-60% stenosis of the internal carotid artery. Catheter was then removed and a pigtail catheter was placed in the aorta at the level of the L1 vertebrae. Aortogram was then obtained. Catheter was then placed at the bifurcation and lower extremity runoffs were obtained. Once completed all guidewires, catheters and sheaths were removed and pressure was placed for hemostasis. Patient tolerated procedure well was sent to PACU for recovery Plan - Discharge Summary Discharge Rx Participant: No New Discharge Prescriptions: No Action traZODone HCL [Desyrel] 100 mg PO HS metFORMIN HCL [Glucophage] 500 mg PO HS Zolpidem [Ambien] 10 mg PO HS Multivitamins, Thera [Multivitamin (formulary)] 1 tab PO DAILY Isosorbide Mononitrate ER [Imdur] 30 mg PO DAILY Insulin Glargine [Lantus] 70 units SQ QAM gemfibroziL [Lopid] 600 mg PO BID Furosemide [Lasix] 60 mg PO DAILY Clopidogrel [Plavix] 75 mg PO MOWEFR B Complex-Vit C-Vit E-Zinc [Z-Bec] 1 tab PO DAILY Atorvastatin [Lipitor] 40 mg PO DAILY Aspirin EC [Ecotrin Low Dose] 81 mg PO DAILY Citalopram Hydrobromide [CeleXA] 40 mg PO DAILY allopurinoL [Zyloprim] 100 mg PO DAILY amLODIPine [Norvasc] 2.5 mg PO DAILY #30 tab lisinopriL [Zestril] 5 mg PO BID #60 tab Metoprolol Tartrate [Lopressor] 50 mg PO BID #60 tab Insulin Aspart [NovoLOG] 20 unit SQ AC-BRKFST Insulin Aspart [NovoLOG] 20 unit SQ AC-SUPPER Discharge Medication List Aspirin EC [Ecotrin Low Dose] 81 mg PO DAILY 01/19/16 [History] Atorvastatin [Lipitor] 40 mg PO DAILY 01/19/16 [History] B Complex-Vit C-Vit E-Zinc [Z-Bec] 1 tab PO DAILY 01/19/16 [History] Clopidogrel [Plavix] 75 mg PO MOWEFR 01/19/16 [History] Furosemide [Lasix] 60 mg PO DAILY 01/19/16 [History] Insulin Glargine [Lantus] 70 units SQ QAM 01/19/16 [History] Isosorbide Mononitrate ER [Imdur] 30 mg PO DAILY 01/19/16 [History] Multivitamins, Thera [Multivitamin (formulary)] 1 tab PO DAILY 01/19/16 [History] Zolpidem [Ambien] 10 mg PO HS 01/19/16 [History] gemfibroziL [Lopid] 600 mg PO BID 01/19/16 [History] metFORMIN HCL [Glucophage] 500 mg PO HS 01/19/16 [History] traZODone HCL [Desyrel] 100 mg PO HS 01/19/16 [History] Citalopram Hydrobromide [CeleXA] 40 mg PO DAILY 11/15/17 [History] allopurinoL [Zyloprim] 100 mg PO DAILY 11/15/17 [History] amLODIPine [Norvasc] 2.5 mg PO DAILY #30 tab 11/23/17 [Rx] lisinopriL [Zestril] 5 mg PO BID #60 tab 11/23/17 [Rx] Metoprolol Tartrate [Lopressor] 50 mg PO BID #60 tab 11/24/17 [Rx] Insulin Aspart [NovoLOG] 20 unit SQ AC-BRKFST 08/17/18 [History] Insulin Aspart [NovoLOG] 20 unit SQ AC-SUPPER 08/17/18 [History] Follow up Appointment(s)/Referral(s): Nicolas Mercado DO [STAFF PHYSICIAN] - 1 Week Discharge Disposition: HOME SELF-CARE
[2020-10-13 15:24] VITALS: BP 153/76; PULSE 52
--- NOTE | 2020-10-15 10:35 | IR ---
EXAMINATION TYPE: IR angio aortic arch DATE OF EXAM: 10/15/2020 COMPARISON: NONE HISTORY: Right carotid stenosis Fluoroscopy support supplied to the referring clinician. See dictated report from vascular surgery, see dictated report of same date from angiogram of the abdomen
== END 2020-10-13 14:45 | disposition home or self-care (01) ==
LOC: CATHCVL 07:37
PROVIDERS: ATTEND Surgery
DX: I70.212 Atherosclerosis of native arteries of extremities with intermittent claudication, left leg (principal); I70.92 Chronic total occlusion of artery of the extremities; I65.23 Occlusion and stenosis of bilateral carotid arteries; I70.0 Atherosclerosis of aorta; I70.8 Atherosclerosis of other arteries; I83.893 Varicose veins of bilateral lower extremities with other complications; Z79.899 Other long term (current) drug therapy; Z79.02 Long term (current) use of antithrombotics/antiplatelets; Z79.82 Long term (current) use of aspirin; Z88.1 Allergy status to other antibiotic agents; Z86.69 Personal history of other diseases of the nervous system and sense organs; Z98.890 Other specified postprocedural states; Z90.49 Acquired absence of other specified parts of digestive tract
CPT/HCPCS: 36200; 75625; 75716; 76937; 36223; C1769 ×3; C1894; J2250; J2001; Q9966 ×2; 36222

== ENCOUNTER 2020-11-13 09:19 | Inpatient (IN) | payer MEDICARE, BC ==
[2020-11-09 11:12] VITALS: BMI 32.8
[~2020-11-13 09:19] MED LIST changes: +ALPRAZolam 0.5 MG TAB PO PRN; -ASPIRIN 325 MG TAB PO PRN; +CLOPIDOGREL 75 MG TAB PO PRN; +DEXAMETHASONE SOD PHOSPHATE 4 MG/ML 1 ML VIAL IV ONE; +MIDAZOLAM 2 MG/2 ML VIAL IV PRN; +NITROGLYCERIN SL TABS 0.4 MG TAB SUBLINGUAL PRN; +ONDANSETRON 4 MG/2 ML VIAL IVP ONE
[2020-11-13] MEDS ORDERED: SODIUM CHLORIDE 0.9% 1,000 ML IV ONE ×2 (09:30→15:02)
[2020-11-13 09:53] LABS: Glucose,Whole Blood 175 mg/dL (75-99)
[2020-11-13] MEDS ORDERED: LIDOCAINE 1% INJ 10MG/ML (20 ML MDV) ONE ×2 (10:15→11:32)
[2020-11-13] MEDS ORDERED: HEPARIN SODIUM,PORCINE 10,000 UNIT/ML 1 ML VIAL ONE (11:32)
[2020-11-13] MEDS ORDERED: NEOSTIGMINE 1 MG/ML 10 ML VIAL ONE (11:32)
[2020-11-13] MEDS ORDERED: MIDAZOLAM 2 MG/2 ML VIAL ONE (11:32)
[2020-11-13] MEDS ORDERED: PROTAMINE SULFATE 10 MG/ML 25 ML VIAL IV ONE (11:32)
[2020-11-13] MEDS ORDERED: PROPOFOL 10 MG/ML 20 ML VIAL IV ONE (11:32)
[2020-11-13] MEDS ORDERED: fentaNYL (PF) 50 MCG/ML 2 ML AMP ONE (11:32)
[2020-11-13] MEDS ORDERED: GLYCOPYRROLATE 0.2 MG/ML 2 ML VIAL ONE ×2 (11:32)
[2020-11-13] MEDS ORDERED: LIDOCAINE 1% INJ 10MG/ML (20 ML MDV) SQ ONE (11:56)
[2020-11-13] MEDS ORDERED: HEPARIN SODIUM 1,000 UN/ML (10ML VL) IV ONE (12:16)
[2020-11-13] MEDS ORDERED: MAG HYDROX/AL HYDROX/SIMETH 30 ML CUP PO PRN (13:03)
[2020-11-13] MEDS ORDERED: RX INFO: IV CONTRAST WAS GIVEN 1 EACH MISC MISCELLANE PRN (13:03)
[2020-11-13 14:00] LABS: Glucose,Whole Blood 125 mg/dL (75-99)
--- NOTE | 2020-11-13 14:18 | P.OP ---
Description of Procedure: Date: 11/13/2020 Preoperative diagnosis: Asymptomatic Right ICA stenosis greater than 90% Postoperative diagnosis: Same Procedure: 1. Right Transcarotid artery revascularization with stenting 2. Ultrasound-guided left common femoral vein central venous catheter Surgeon: Nicolas Mercado DO Configuration Manager: Angelica Patten D.O. Anesthesia: Gen. endotracheal Complications: none Condition: Stable Contrast: 25 mL Fluoroscopy time: 5.1 minutes Flow reversal time: 13 minutes Indication for procedure: 74-year-old gentleman with history of carotid stenosis greater than 90% on the right presents to the hospital for elective trans- carotid artery revascularization and stenting. Operative narrative: After written and informed consent was obtained the patient all risks benefits and competitions were described the patient was brought to the [facility] and laid in a supine position. The area of the neck and groins were prepped and draped in usual sterile fashion after appropriate anesthetic was performed per the anesthesiologist. A timeout was performed in normal fashion and antibiotics were administered prior to incision. Utilizing ultrasound the right common carotid artery was located and a transverse incision was created overlying this area. Dissection was carried between the sternocleidomastoid musculature down to the carotid sheath. The sheath was then incised and the common carotid artery was located and dissected free in a circumferential manner and controlled with umbilical tape. Once controlled a ttention was placed down to the common femoral vein on the left and utilizing ultrasound the vein was cannulated and the 8-Tamazight sheath was placed in normal fashion. Attention was then placed back to the carotid artery and the patient was administered heparin and followed with ACTs and redosed as needed for ACT above 200. A pursestring suture was then placed at the common carotid artery with 6-0 Prolene and utilizing a multipurpose needle the common carotid artery was accessed and wire was placed followed by a 4-Tamazight sheath. Carotid angiogram was then obtained demonstrating significant stenosis greater than 90% in the internal carotid artery which was highly calcified and lesion measured 25 mm. Stiff wire was then placed followed by the 8 Tamazight Silkroad sheath. Flow reversal was then established with the enroute [employer] system after patient's blood pressure was increased to above 160, heart rate above 60 and ACT above 250. 014 wire was then placed across the lesion followed by a 5.5 mm balloon and balloon angioplasty was performed followed by an 9 x 40 mm Silkroad stent. Postdilatation was performed with 6 x 20 mm balloon and final angiogram was obtained demonstrating 90% resolution of the stenosis.. All guidewires and catheters were removed and the sheath was removed and the arteriotomy was secured with the previously placed pursestring suture. Hemostasis was assured with Gelfoam and thrombin. The femoral sheath was also removed and pressure was held for hemostasis. The patient tolerated the procedure well and was moving all extremities and following commands. He was then sent to PACU for recovery.
[2020-11-13] MEDS: HYDROmorphone 0.5 MG/0.5 ML SYRINGE IVP PRN ×4 (14:56→20:36)
[2020-11-13] MEDS: LACTATED RINGERS 1,000 ML IV SCH (15:28)
[2020-11-13 15:49] LABS: Glucose,Whole Blood 126 mg/dL (75-99)
--- NOTE | 2020-11-13 15:57 | IR ---
Fluoroscopy HISTORY: Carotid stenosis 5.2 minutes fluoroscopy time supplied to the referring clinician. 170 intraoperative C-arm images do cument the procedure. See dictated report from vascular surgery.
--- NOTE | 2020-11-13 16:11 | P.CNPUL ---
History of Present Illness Consult date: 11/13/20 Chief complaint: TCAR History of present illness: This is a 74-year-old male patient came into the intensive care unit following his carotid surgery. The patient underwent a TCAR are procedure for 90% stenosis involving the right internal carotid artery. The patient had an asymptomatic right ICA stenosis that was greater than 90% and surgery was performed today, and this was an elective surgery. The patient is currently being monitored in the intensive care unit. The patient is on normal saline at the rate of 100 mL an hour. The patient has a left radial arterial line for blood pressure monitoring and he is on no pressors for now. His current blood pressure is ranging between 110 and 160 systolic. He has a right neck and left groin puncture and the puncture sites of been dry clean and intact and there is no evidence of any bleeding or hematoma formation. Neurologically, he is moving all 4 extremities without any limitation. Note that this procedure was done by vascular surgery and he was intubated during the process and the estimated blood loss was only 20 mL. Review of Systems Constitutional: Denies chills, Denies fever Eyes: denies as per HPI, denies blurred vision, denies bulging eye, denies decreased vision, denies diplopia, denies discharge, denies dry eye, denies irritation, denies itching, denies pain, denies photophobia, denies loss of peripheral vision, denies loss of vision, denies tunnel vision/blind spots Ears: deny: decreased hearing, ear discharge, earache, tinnitus Ears, nose, mouth and throat: Denies headache, Denies sore throat Breasts: absent: as per HPI, gynecomastia Cardiovascular: Reports as per HPI Respiratory: Reports as per HPI Gastrointestinal: Reports as per HPI Genitourinary: Reports as per HPI Musculoskeletal: Reports as per HPI Musculoskeletal: absent: ankle pain, ankle stiffness, ankle swelling, as per HPI, elbow pain, elbow stiffness, elbow swelling, foot pain, foot stiffness, foot swelling, hand pain, hand stiffness, hand swelling, hip pain, hip stiffness, hip swelling, knee pain, knee stiffness, knee swelling, shoulder pain, shoulder stiffness, shoulder swelling, wrist pain, wrist stiffness, wrist swelling Integumentary: Reports as per HPI Neurological: Reports as per HPI Psychiatric: Reports as per HPI Endocrine: Reports as per HPI Hematologic/Lymphatic: Reports as per HPI Allergic/Immunologic: Reports as per HPI Past Medical History Past Medical History: Coronary Artery Disease (CAD), Chest Pain / Angina, Diabetes Mellitus, Hyperlipidemia, Hypertension, Seizure Disorder, Vascular Disorder Additional Past Medical History / Comment(s): carotid stenosis,having severe pain with walking,IDDM, last grand mal seizure 2003, kidney stones. History of Any Multi-Drug Resistant Organisms: None Reported Past Surgical History: Appendectomy, Coronary Bypass/CABG, Heart Catheterization With Stent Additional Past Surgical History / Comment(s): arch study aortogram with runooff,PCI with stents (pt thinks 2 total stents) with last stent placed 03/13/14, angioplasties x 3, 02/19/07 CABG-4 vessel, colonoscopy-normal,kidney stones removed Past Anesthesia/Blood Transfusion Reactions: No Reported Reaction Additional Past Anesthesia/Blood Transfusion Reaction / Comment(s): no hx blood transfusion Date of Last Stent Placement:: 03/13/14 Smoking Status: Former smoker - Past Family History Father Family Medical History: Cancer Additional Family Medical History / Comment(s): Father of leukemia at the age of 67 yrs. Mother Family Medical History: Cancer, Dementia Additional Family Medical History / Comment(s): Mother had retinal cancer. She of dementia at the age of 89yrs. Medications and Allergies Home Medications Medication Instructions Recorded Confirmed Type Aspirin EC [Ecotrin Low Dose] 81 mg PO DAILY 01/19/16 11/13/20 History Atorvastatin [Lipitor] 40 mg PO DAILY 01/19/16 11/13/20 History B Complex-Vit C-Vit E-Zinc [Z-Bec] 1 tab PO DAILY 01/19/16 11/13/20 History Clopidogrel [Plavix] 75 mg PO DAILY 01/19/16 11/13/20 History Furosemide [Lasix] 60 mg PO DAILY 01/19/16 11/13/20 History Insulin Glargine [Lantus] 70 units SQ QAM 01/19/16 11/13/20 History Isosorbide Mononitrate ER [Imdur] 30 mg PO DAILY 01/19/16 11/13/20 History Multivitamins, Thera [Multivitamin 1 tab PO DAILY 01/19/16 11/13/20 History (formulary)] Zolpidem [Ambien] 10 mg PO HS 01/19/16 11/13/20 History gemfibroziL [Lopid] 600 mg PO BID 01/19/16 11/13/20 History metFORMIN HCL [Glucophage] 500 mg PO HS 01/19/16 11/13/20 History traZODone HCL [Desyrel] 100 mg PO HS 01/19/16 11/13/20 History Citalopram Hydrobromide [CeleXA] 40 mg PO DAILY 11/15/17 11/13/20 History allopurinoL [Zyloprim] 100 mg PO DAILY 11/15/17 11/13/20 History amLODIPine [Norvasc] 2.5 mg PO DAILY #30 tab 11/23/17 11/13/20 Rx lisinopriL [Zestril] 5 mg PO BID #60 tab 11/23/17 11/13/20 Rx Metoprolol Tartrate [Lopressor] 50 mg PO BID #60 tab 11/24/17 11/13/20 Rx Insulin Aspart [NovoLOG] 20 unit SQ AC-BRKFST 08/17/18 11/13/20 History Insulin Aspart [NovoLOG] 20 unit SQ AC-SUPPER 08/17/18 11/13/20 History Allergies Allergy/AdvReac Type Severity Reaction Status Date / Time ciprofloxacin [From Cipro] Allergy Rash/Hives Verified 11/09/20 10:03 ciprofloxacin HCl Allergy Rash/Hives Verified 11/09/20 10:03 [From Cipro] ezetimibe [From Vytorin] Allergy Unknown Verified 11/09/20 10:03 indomethacin [From Indocin] Allergy Unknown Verified 11/09/20 10:03 indomethacin sodium Allergy Unknown Verified 11/09/20 10:03 [From Indocin] lamotrigine [From Lamictal] Allergy Unknown Verified 11/09/20 10:03 simvastatin [From Vytorin] Allergy Unknown Verified 11/09/20 10:03 Physical Exam Vitals: Vital Signs Temp Pulse Pulse Resp BP BP BP 11/13/20 15:27 51 L 16 151/50 142/67 11/13/20 15:00 50 L 16 154/68 151/68 11/13/20 14:30 50 L 17 138/65 150/50 11/13/20 14:18 50 L 16 144/65 147/52 11/13/20 14:03 50 L 16 131/61 138/52 11/13/20 13:48 52 L 16 140/62 140/48 11/13/20 13:33 97.2 F L 55 L 16 131/60 138/46 11/13/20 09:45 97.6 F 55 L 16 215/84 BP Pulse Ox 11/13/20 15:27 96 11/13/20 15:00 96 11/13/20 14:30 96 11/13/20 14:18 96 11/13/20 14:03 97 11/13/20 13:48 97 11/13/20 13:33 98 11/13/20 09:45 203/82 96 Intake and Output 11/13/20 11/13/20 11/13/20 06:59 14:59 22:59 Intake Total 150 200 Output Total 150 Balance 150 50 Intake: IV 150 200 Output: Urine 150 The patient appeared well nourished and normally developed. Vital signs as documented. Head exam is unremarkable. No scleral icterus or corneal arcus noted. Neck is without jugular venous distension, thyromegaly, or carotid bruits. Carotid upstrokes are brisk bilaterally. The patient has a clear surgical site on the right neck and there is no significant hematoma formation and the surgical site is dry clean and intact and there are no drains present illness this point in time. Lungs are clear to auscultation and percussion. Cardiac exam reveals the PMI to be normally sized and situated. Rhythm is regular. First and second heart sounds normal. No murmurs, rubs or gallops. Abdominal exam reveals normal bowel sounds, no masses, no organomegaly and no aortic enlargement. Extremities are nonedematous and both femoral and pedal pulses are diminished and there are obtainable by Doppler bilaterally. The feet are cold yet there is adequate capillary refills..Examination of the skin revealed no evidence of significant rashes, suspicious appearing nevi or other concerning lesions.Neurologically, the patient is awake and alert and the patient does not have any focal neurological deficit. Cranial nerves are essentially intact. Results - Laboratory Findings Abnormal lab findings: Abnormal Labs 11/13/20 11/13/20 11/13/20 09:50 13:58 15:47 POC Glucose (mg/dL) 175 H 125 H 126 H Assessment and Plan Plan: 1 asymptomatic 90% internal carotid artery stenosis post TCAR, the patient is currently in the intensive care unit for monitoring. Neurologically intact. No focal neurological deficit. 2 diabetes mellitus 3 hypertension 4 hyperlipidemia 5 coronary artery disease with previous bypass surgery 6 peripheral vascular disease with claudication involving the lower extremities 7 obesity 8 History of seizure disorder, currently inactive in stable 9 gout Plan Neurochecks every 1 hour Monitor the surgical wound site Continue aspirin and Plavix, aspirin 81 mg and Plavix at 75 mg monitor the arterial blood pressure IV fluids with 0.9 at the patient will be placed on insulin scale insulin coverage and we are going to resume this as of tomorrow dose of 70 units daily and the patient will be also placed on metformin 500 mg at bedtime, trazodone 100 mg at bedtime, Imdur 30 mg by mouth daily, allopurinol 100 mg by mouth daily Obtain CBC and complete metabolic profile in a.m. We'll continue to follow
[2020-11-13] MEDS: DEXMEDETOMIDINE/0.9% NACL(PMX) 400 MCG in EMPTY BAG 1 BAG IV SCH (16:27)
[2020-11-13 17:12] LABS: Glucose,Whole Blood 118 mg/dL (75-99)
[2020-11-13] MEDS ORDERED: SODIUM CHLORIDE 0.9% 500 ML 500 ML IV ONE (18:03)
[2020-11-13] MEDS: HYDROcodone/APAP 5-325MG 1 EACH TAB PO PRN ×2 (18:18→22:42)
[2020-11-13] MEDS ORDERED: SODIUM CHLORIDE 0.9% 500 ML 250 ML IV ONE (18:25)
[2020-11-13] MEDS: PSEUDOEPHEDRINE 30 MG TAB PO SCH ×2 (18:42→23:02)
[2020-11-13] MEDS: METOPROLOL TARTRATE 50 MG TAB PO SCH (20:21)
[2020-11-13] MEDS: lisinopriL 5 MG TAB PO SCH (20:32)
--- NOTE | 2020-11-13 20:58 | P.CONS ---
History of Present Illness - Reason for Consult Consult date: 11/13/20 - History of Present Illness The patient is a 74-year-old male with a PMH of coronary artery disease, type II DM, hypertension, and hyperlipidemia who was admitted to the hospital for an elective TACR (transcarotid artery revascularization) procedure which he underwent earlier today. The patient had no immediate post-operative complications. The patient was seen in the MICU post-operatively. He reported feeling tired and a sore throat. Denied weakness, numbness, or tingling. Denied chest pain, SOB, or groin pain. Denied fever, chills, dizziness, or headaches. Reports compliance with his medications at home. Review of Systems Pertinent positives and negatives as discussed in HPI, a complete review of systems was performed and all other systems are negative. Past Medical History Past Medical History: Coronary Artery Disease (CAD), Chest Pain / Angina, Diabetes Mellitus, Hyperlipidemia, Hypertension, Seizure Disorder, Vascular Disorder Additional Past Medical History / Comment(s): carotid stenosis,having severe pain with walking,IDDM, last grand mal seizure 2003, kidney stones. History of Any Multi-Drug Resistant Organisms: None Reported Past Surgical History: Appendectomy, Coronary Bypass/CABG, Heart Catheterization With Stent Additional Past Surgical History / Comment(s): arch study aortogram with runooff,PCI with stents (pt thinks 2 total stents) with last stent placed 03/13/14, angioplasties x 3, 02/19/07 CABG-4 vessel, colonoscopy-normal,kidney stones removed Past Anesthesia/Blood Transfusion Reactions: No Reported Reaction Additional Past Anesthesia/Blood Transfusion Reaction / Comm: no hx blood transfusion Date of Last Stent Placement:: 03/13/14 Smoking Status: Former smoker - Past Family History Father Family Medical History: Cancer Additional Family Medical History / Comment(s): Father of leukemia at the age of 67 yrs. Mother Family Medical History: Cancer, Dementia Additional Family Medical History / Comment(s): Mother had retinal cancer. She of dementia at the age of 89yrs. Medications and Allergies Home Medications Medication Instructions Recorded Confirmed Type Aspirin EC [Ecotrin Low Dose] 81 mg PO DAILY 01/19/16 11/13/20 History Atorvastatin [Lipitor] 40 mg PO DAILY 01/19/16 11/13/20 History B Complex-Vit C-Vit E-Zinc [Z-Bec] 1 tab PO DAILY 01/19/16 11/13/20 History Clopidogrel [Plavix] 75 mg PO DAILY 01/19/16 11/13/20 History Furosemide [Lasix] 60 mg PO DAILY 01/19/16 11/13/20 History Insulin Glargine [Lantus] 70 units SQ QAM 01/19/16 11/13/20 History Isosorbide Mononitrate ER [Imdur] 30 mg PO DAILY 01/19/16 11/13/20 History Multivitamins, Thera [Multivitamin 1 tab PO DAILY 01/19/16 11/13/20 History (formulary)] Zolpidem [Ambien] 10 mg PO HS 01/19/16 11/13/20 History gemfibroziL [Lopid] 600 mg PO BID 01/19/16 11/13/20 History metFORMIN HCL [Glucophage] 500 mg PO HS 01/19/16 11/13/20 History traZODone HCL [Desyrel] 100 mg PO HS 01/19/16 11/13/20 History Citalopram Hydrobromide [CeleXA] 40 mg PO DAILY 11/15/17 11/13/20 History allopurinoL [Zyloprim] 100 mg PO DAILY 11/15/17 11/13/20 History amLODIPine [Norvasc] 2.5 mg PO DAILY #30 tab 11/23/17 11/13/20 Rx lisinopriL [Zestril] 5 mg PO BID #60 tab 11/23/17 11/13/20 Rx Metoprolol Tartrate [Lopressor] 50 mg PO BID #60 tab 11/24/17 11/13/20 Rx Insulin Aspart [NovoLOG] 20 unit SQ AC-BRKFST 08/17/18 11/13/20 History Insulin Aspart [NovoLOG] 20 unit SQ AC-SUPPER 08/17/18 11/13/20 History Allergies Allergy/AdvReac Type Severity Reaction Status Date / Time ciprofloxacin [From Cipro] Allergy Rash/Hives Verified 11/09/20 10:03 ciprofloxacin HCl Allergy Rash/Hives Verified 11/09/20 10:03 [From Cipro] ezetimibe [From Vytorin] Allergy Unknown Verified 11/09/20 10:03 indomethacin [From Indocin] Allergy Unknown Verified 11/09/20 10:03 indomethacin sodium Allergy Unknown Verified 11/09/20 10:03 [From Indocin] lamotrigine [From Lamictal] Allergy Unknown Verified 11/09/20 10:03 simvastatin [From Vytorin] Allergy Unknown Verified 11/09/20 10:03 Physical Exam Vitals: Vital Signs Temp Pulse Pulse Pulse Resp BP BP 11/13/20 19:00 51 L 16 146/86 11/13/20 18:30 49 L 16 147/59 11/13/20 18:00 48 L 15 144/74 11/13/20 17:30 46 L 15 144/74 11/13/20 17:15 48 L 18 11/13/20 17:00 97.7 F 48 L 16 11/13/20 16:45 48 L 14 11/13/20 16:30 48 L 12 11/13/20 16:15 48 L 13 11/13/20 16:00 49 L 17 11/13/20 15:50 96.3 F L 49 L 18 144/74 11/13/20 15:27 51 L 16 11/13/20 15:00 50 L 16 11/13/20 14:30 50 L 17 11/13/20 14:18 50 L 16 11/13/20 14:03 50 L 16 11/13/20 13:48 52 L 16 11/13/20 13:33 97.2 F L 55 L 16 11/13/20 09:45 97.6 F 55 L 16 215/84 BP BP BP Pulse Ox 11/13/20 19:00 94 L 11/13/20 18:30 95 11/13/20 18:00 96 11/13/20 17:30 94 L 11/13/20 17:15 95 11/13/20 17:00 91 L 11/13/20 16:45 93 L 11/13/20 16:30 96 11/13/20 16:15 94 L 11/13/20 16:00 96 11/13/20 15:50 95 11/13/20 15:27 151/50 142/67 96 11/13/20 15:00 154/68 151/68 96 11/13/20 14:30 138/65 150/50 96 11/13/20 14:18 144/65 147/52 96 11/13/20 14:03 131/61 138/52 97 11/13/20 13:48 140/62 140/48 97 11/13/20 13:33 131/60 138/46 98 11/13/20 09:45 203/82 96 Intake and Output 11/13/20 11/13/20 11/13/20 06:59 14:59 22:59 Intake Total 150 600 Output Total 365 Balance 150 235 Intake: IV 150 600 Sodium Chloride 0.9% 1, 400 000 ml In Empty Bag 1 bag @ 1 ML/KG/HR 103.873 mls /hr IV .[id number] ONE Rx#: [id number] Output: Urine 365 Other: Voiding Method Indwelling Catheter ABP, PAP, CO, CI - Last 8 Hours Arterial Blood Pressure 108/54 Arterial Blood Pressure 118/65 Arterial Blood Pressure 131/62 Arterial Blood Pressure 134/62 Arterial Blood Pressure 125/56 Arterial Blood Pressure 142/54 Arterial Blood Pressure 155/61 Arterial Blood Pressure 156/57 General: non toxic, no distress, appears at stated age, obese Derm: no unusual rashes/lesions no unusual ecchymoses, warm, dry Head: atraumatic, normocephalic, symmetric Eyes: EOMI, no lid lag, anicteric sclera, pupils equal round reactive to light ENT: Nose and ears atraumatic, no thrush, no pharyngeal erythema Neck: R-sided dressing overlying carotid in place, no drainage noted, no cervical lymphadenopathy, trachea midline, supple Mouth: no lip lesion, mucus membranes moist Cardiovascular: S1S2 reg, no murmur, positive posterior tibial pulse bilateral, no edema, capillary refill less than 2 seconds Lungs: CTA bilateral, no rhonchi, no rales , no accessory muscle use Abdominal: soft, nontender to palpation, no guarding, no appreciable organomegaly, normal bowel sounds Ext: no gross muscle atrophy, muscle strength 5 out of 5 in all 4 extremities grossly, no contractures, Neuro: CN II-XI grossly intact, light touch intact all 4 extremities, finger to nose within normal limits, Psych: Alert, oriented, appropriate affect Results Labs: Abnormal Lab Results - Last 24 Hours (Table) 11/13/20 11/13/20 11/13/20 Range/Units 09:50 13:58 15:47 POC Glucose (mg/dL) 175 H 125 H 126 H (75-99) mg/dL 11/13/20 Range/Units 17:10 POC Glucose (mg/dL) 118 H (75-99) mg/dL Assessment and Plan Plan: Carotid artery stenosis 90% asymptomatic, s/p TCAR -Defer management to vascular surgery -Currently on Aspirin and Plavix -Neurochecks q1h Chronic conditions: Type 2 DM, HTN, HLD, CAD -PASTORA with blood glucose monitoring -Insulin Levemir 70 U qhs -Hold off on metformin and other oral hypoglycemics -C/w home medications: Lipitor, Lisinopril, Norvasc, Allopurinol, Lopressor, and Trazadone -Check A1C
[2020-11-13] MEDS: traZODone HCL 100 MG TAB PO SCH (22:42)
[2020-11-13] MEDS: ZOLPIDEM 10 MG TAB PO SCH (22:42)
[2020-11-13] MEDS: INSULIN ASPART (NovoLOG) 100 UNIT/ML VIAL SQ SCH (22:47)
[2020-11-13 22:49] LABS: Glucose,Whole Blood 150 mg/dL (75-99)
[2020-11-14] MEDS: PHENYLEPHRINE 40 MG in SODIUM CHLORIDE 0.9% 250 ML IV SCH ×2 (01:30→10:28)
[2020-11-14] MEDS: DEXMEDETOMIDINE/0.9% NACL(PMX) 400 MCG in EMPTY BAG 1 BAG IV SCH (01:30)
[2020-11-14] MEDS: HYDROcodone/APAP 5-325MG 1 EACH TAB PO PRN ×3 (05:36→20:09)
[2020-11-14 05:56] LABS: HCT 39.9 % (39.0-53.0); HGB 13.4 gm/dL (13.0-17.5); MCH 31.5 pg (25.0-35.0); MCHC 33.5 g/dL (31.0-37.0); MCV 93.9 fL (80.0-100.0); Mean Platelet Volume 7.5; Platelet Count 148 k/uL (150-450); RBC 4.26 m/uL (4.30-5.90); RDW 13.4 % (11.5-15.5); WBC 11.4 k/uL (3.8-10.6)
[2020-11-14 06:18] LABS: ALT 46 U/L (4-49); AST 81 U/L (17-59); African American GFR (CKD) >90 (>60 ml/min/1.73 sqM); Albumin 3.4 g/dL (3.5-5.0); Alkaline Phosphatase 54 U/L (38-126); Anion Gap 7 mmol/L; Blood Urea Nitrogen 21 mg/dL (9-20); Calcium 8.3 mg/dL (8.4-10.2); Carbon Dioxide 21 mmol/L (22-30); Chloride 107 mmol/L (98-107); Glucose 137 mg/dL (74-99); Non-African American GFR(CKD) 85 (>60 ml/min/1.73 sqM); Potassium 4.1 mmol/L (3.5-5.1); Sodium 135 mmol/L (137-145); Total Bilirubin 0.5 mg/dL (0.2-1.3); Total Protein 5.9 g/dL (6.3-8.2)
[2020-11-14] MEDS: PSEUDOEPHEDRINE 30 MG TAB PO SCH ×4 (06:50→23:42)
[2020-11-14 06:51] LABS: Glucose,Whole Blood 153 mg/dL (75-99)
[2020-11-14] MEDS: LACTATED RINGERS 1,000 ML IV SCH (08:00)
[2020-11-14] MEDS: INSULIN ASPART (NovoLOG) 100 UNIT/ML VIAL SQ SCH ×4 (08:02→20:13)
--- NOTE | 2020-11-14 08:34 | P.PN ---
Subjective Progress Note Date: 11/14/20 This is a 74-year-old male patient came into the intensive care unit following his carotid surgery. The patient underwent a TCAR are procedure for 90% stenosis involving the right internal carotid artery. The patient had an asymptomatic right ICA stenosis that was greater than 90% and surgery was perfo rmed today, and this was an elective surgery. The patient is currently being monitored in the intensive care unit. The patient is on normal saline at the rate of 100 mL an hour. The patient has a left radial arterial line for blood pressure monitoring and he is on no pressors for now. His current blood pressure is ranging between 110 and 160 systolic. He has a right neck and left groin puncture and the puncture sites of been dry clean and intact and there is no evidence of any bleeding or hematoma formation. Neurologically, he is moving all 4 extremities without any limitation. Note that this procedure was done by vascular surgery and he was intubated during the process and the estimated blood loss was only 20 mL. 11/14/2020, the patient is awake and alert. He had a uneventful night following his surgery. He is neurologically intact. No hypotension. Blood work from this morning showed a white cell count of 11.4, hemoglobin of 13.4, his BUN is at 21 with a creatinine of 0.8, his liver function tests are adequate. We will also send a fasting lipid profile and there is also still pending for now.surgical wound site over the right neck area dry clean and intact. He has adequate pulses in the lower extremities bilaterally. The patient had a limited number of hours of sleep yesterday. He had oat meal this morning and the blood sugar from today is 153. He has not received his Levimir Objective - Vital Signs Vital signs: Vital Signs Temp 97.7 F 11/14/20 00:00 Pulse 46 L 11/14/20 07:00 Resp 13 11/14/20 07:00 BP 170/64 11/14/20 07:00 Pulse Ox 92 L 11/14/20 07:00 Intake & Output 11/13/20 11/14/20 11/14/20 18:59 06:59 18:59 Intake Total 650 1350 Output Total 325 570 Balance 325 780 Weight 107.9 kg Intake: IV 650 1100 Sodium Chloride 0.9% 1, 300 1100 000 ml In Empty Bag 1 bag @ 1 ML/KG/HR 103.873 mls /hr IV .Q9H38M ONE Rx#: [id number] Oral 250 Output: Urine 325 570 Other: Voiding Method Indwelling Catheter Indwelling Catheter ABP, PAP, CO, CI - Last Documented Arterial Blood Pressure 108/54 - Exam The patient appeared well nourished and normally developed. Vital signs as documented. Head exam is unremarkable. No scleral icterus or corneal arcus noted. Neck is without jugular venous distension, thyromegaly, or carotid bruits. Carotid upstrokes are brisk bilaterally. The patient has a clear surgical site on the right neck and there is no significant hematoma formation and the surgical site is dry clean and intact and there are no drains present illness this point in time. Lungs are clear to auscultation and percussion. Cardiac exam reveals the PMI to be normally sized and situated. Rhythm is regular. First and second heart sounds normal. No murmurs, rubs or gallops. Abdominal exam reveals normal bowel sounds, no masses, no organomegaly and no aortic enlargement. Extremities are nonedematous and both femoral and pedal pulses are diminished and there are obtainable by Doppler bilaterally. The feet are cold yet there is adequate capillary refills..Examination of the skin revealed no evidence of significant rashes, suspicious appearing nevi or other concerning lesions.Neurologically, the patient is awake and alert and the patient does not have any focal neurological deficit. Cranial nerves are essentially intact. - Labs CBC & Chem 7: 11/14/20 05:45 11/14/20 05:45 Labs: Abnormal Lab Results - Last 24 Hours (Table) 11/13/20 11/13/20 11/13/20 Range/Units 09:50 13:58 15:47 WBC (3.8-10.6) k/uL RBC (4.30-5.90) m/uL Plt Count (150-450) k/uL Sodium (137-145) mmol/L Carbon Dioxide (22-30) mmol/L BUN (9-20) mg/dL Glucose (74-99) mg/dL POC Glucose (mg/dL) 175 H 125 H 126 H (75-99) mg/dL Calcium (8.4-10.2) mg/dL AST (17-59) U/L Total Protein (6.3-8.2) g/dL Albumin (3.5-5.0) g/dL 11/13/20 11/13/20 11/14/20 Range/Units 17:10 22:46 05:45 WBC 11.4 H (3.8-10.6) k/uL RBC 4.26 L (4.30-5.90) m/uL Plt Count 148 L (150-450) k/uL Sodium (137-145) mmol/L Carbon Dioxide (22-30) mmol/L BUN (9-20) mg/dL Glucose (74-99) mg/dL POC Glucose (mg/dL) 118 H 150 H (75-99) mg/dL Calcium (8.4-10.2) mg/dL AST (17-59) U/L Total Protein (6.3-8.2) g/dL Albumin (3.5-5.0) g/dL 11/14/20 11/14/20 Range/Units 05:45 06:48 WBC (3.8-10.6) k/uL RBC (4.30-5.90) m/uL Plt Count (150-450) k/uL Sodium 135 L (137-145) mmol/L Carbon Dioxide 21 L (22-30) mmol/L BUN 21 H (9-20) mg/dL Glucose 137 H (74-99) mg/dL POC Glucose (mg/dL) 153 H (75-99) mg/dL Calcium 8.3 L (8.4-10.2) mg/dL AST 81 H (17-59) U/L Total Protein 5.9 L (6.3-8.2) g/dL Albumin 3.4 L (3.5-5.0) g/dL Assessment and Plan Plan: 1 asymptomatic 90% internal carotid artery stenosis post TCAR, the patient is currently in the intensive care unit for monitoring. Neurologically intact. No focal neurological deficit. the patient is postop day #1. Hemodynamically stable. Slightly bradycardic and he is asymptomatic in that regard. His atenolol is still on hold. 2 diabetes mellitus 3 hypertension 4 hyperlipidemia 5 coronary artery disease with previous bypass surgery 6 peripheral vascular disease with claudication involving the lower extremities 7 obesity 8 History of seizure disorder, currently inactive in stable 9 gout Plan Neurochecks every 1 hour Monitor the surgical wound sites, wound is essentially clear. Continue aspirin and Plavix, aspirin 81 mg and Plavix at 75 mg monitor the arterial blood pressure we will remove arterial line, and restart the metoprolol once the patient's heart rate picks up further. He was given metoprolol in the hospital 50 mg by mouth twice a day however this is currently on hold, while he is being monitored IV fluids to KVO Restart Norvasc 2.5mg and Zestril 5 mg BID metformin 500 mg at bedtime, trazodone 100 mg at bedtime, Imdur 30 mg by mouth daily, allopurinol 100 mg by mouth daily Awaiting fasting lipid profile May need to restart long-acting insulin once the patient is back to regular full diet. His blood sugars under adequate control for now and continue the sliding scale coverage. We'll continue to follow
[2020-11-14] MEDS ORDERED: ASPIRIN 325 MG TAB PO SCH (09:00)
[2020-11-14] MEDS ORDERED: [UNRECOGNIZED DRUG - OTHER] PO SCH (09:00)
[2020-11-14] MEDS ORDERED: ZINC PO SCH (09:00)
[2020-11-14] MEDS ORDERED: VITAMIN E PO SCH (09:00)
[2020-11-14] MEDS ORDERED: ASCORBIC ACID PO SCH (09:00)
[2020-11-14] MEDS ORDERED: INSULIN DETEMIR (LEVEMIR) 100 UNIT/ML SYR SQ SCH (09:00)
[2020-11-14] MEDS: CITALOPRAM HYDROBROMIDE 20 MG TAB PO SCH (10:33)
[2020-11-14] MEDS: ATORVASTATIN 40 MG TAB PO SCH (10:33)
[2020-11-14] MEDS: METOPROLOL TARTRATE 50 MG TAB PO SCH ×2 (10:33→20:11)
[2020-11-14] MEDS: CLOPIDOGREL 75 MG TAB PO SCH (10:33)
[2020-11-14] MEDS: ASPIRIN 81 MG PO SCH (10:33)
[2020-11-14] MEDS: allopurinoL 100 MG TAB PO SCH (10:33)
[2020-11-14] MEDS: lisinopriL 5 MG TAB PO SCH ×2 (10:33→18:28)
[2020-11-14] MEDS: FUROSEMIDE 20 MG TAB PO SCH (10:33)
[2020-11-14] MEDS: INSULIN DETEMIR (LEVEMIR) 100 UNIT/ML SYR SQ SCH (10:34)
[2020-11-14] MEDS: FENOFIBRATE 160 MG TAB PO SCH (10:34)
[2020-11-14] MEDS: amLODIPine 2.5 MG TAB PO SCH (10:35)
--- NOTE | 2020-11-14 10:58 | P.PN ---
Subjective Progress Note Date: 11/14/20 Principal diagnosis: carotid artery disease Patient is a 69-year-old male past medical history of diabetes mellitus type 2 insulin requiring, coronary artery disease, hypertension, dyslipidemia, and carotid stenosis who presented for transcarotid artery revascularization with stenting. We were consulted for medical management. Patient with HR in the 40s overnight. Patient seen and examined at bedside. He reports some right-sided neck pain. He reports some pain with swallowing but no difficulty swallowing. He denies any shortness of breath. No chest discomfort. No nausea or vomiting. Was slightly dizzy last night but this has resolved. General: Ill-appearing, no distress, appears at stated age Derm: warm, dry Head: atraumatic, normocephalic, symmetric Eyes: EOMI, no lid lag, anicteric sclera Mouth: no lip lesion, mucus membranes moist, dressing over her anterior right neck minimal amount of soak through Cardiovascular: S1S2 reg, no murmur, positive posterior tibial pulse bilateral, Lungs: Decreased breath sounds bilateral, no rhonchi, no rales , no accessory muscle use Abdominal: soft, nontender to palpation, no guarding, no appreciable orga nomegaly Ext: no gross muscle atrophy, no edema, no contractures Neuro: CN II-XI grossly intact, no focal neuro deficits Psych: Alert, oriented, appropriate affect 73 M s/p transcarotid artery revascularization with stenting. Management per vascular DM 2 - decreaseing long acting to 55 units - SSI - follow BS Bradycardia - hold lopressor - follow Hr ASCAD - stain - plavix HLD - statin and fenofibrate HTN - follow BP - lopressor Chronic: seizure disorder kidney disease obesity Thank you for allowing us to participate in the care of this pleasant patient. Do not hesitate to contact us with questions. Someone can be reached from the [facility] hospitalist group all hours of the day at [phone] or via [employer]. Objective - Vital Signs Vital signs: Vital Signs Temp 97.7 F 11/14/20 00:00 Pulse 46 L 11/14/20 07:00 Resp 13 11/14/20 07:00 BP 170/64 11/14/20 07:00 Pulse Ox 92 L 11/14/20 07:00 Intake & Output 11/13/20 11/14/20 11/14/20 18:59 06:59 18:59 Intake Total 650 1450 100 Output Total 325 610 40 Balance 325 840 60 Weight 107.9 kg Intake: IV 650 1200 100 Sodium Chloride 0.9% 1, 300 1200 100 000 ml In Empty Bag 1 bag @ 1 ML/KG/HR 103.873 mls /hr IV .Q9H38M ONE Rx#: [id number] Oral 250 Output: Urine 325 610 40 Other: Voiding Method Indwelling Catheter Indwelling Catheter ABP, PAP, CO, CI - Last Documented Arterial Blood Pressure 108/54 - Labs CBC & Chem 7: 11/14/20 05:45 11/14/20 05:45 Labs: Abnormal Lab Results - Last 24 Hours (Table) 11/13/20 11/13/20 11/13/20 Range/Units 13:58 15:47 17:10 WBC (3.8-10.6) k/uL RBC (4.30-5.90) m/uL Plt Count (150-450) k/uL Sodium (137-145) mmol/L Carbon Dioxide (22-30) mmol/L BUN (9-20) mg/dL Glucose (74-99) mg/dL POC Glucose (mg/dL) 125 H 126 H 118 H (75-99) mg/dL Calcium (8.4-10.2) mg/dL AST (17-59) U/L Total Protein (6.3-8.2) g/dL Albumin (3.5-5.0) g/dL 11/13/20 11/14/20 11/14/20 Range/Units 22:46 05:45 05:45 WBC 11.4 H (3.8-10.6) k/uL RBC 4.26 L (4.30-5.90) m/uL Plt Count 148 L (150-450) k/uL Sodium 135 L (137-145) mmol/L Carbon Dioxide 21 L (22-30) mmol/L BUN 21 H (9-20) mg/dL Glucose 137 H (74-99) mg/dL POC Glucose (mg/dL) 150 H (75-99) mg/dL Calcium 8.3 L (8.4-10.2) mg/dL AST 81 H (17-59) U/L Total Protein 5.9 L (6.3-8.2) g/dL Albumin 3.4 L (3.5-5.0) g/dL 11/14/20 Range/Units 06:48 WBC (3.8-10.6) k/uL RBC (4.30-5.90) m/uL Plt Count (150-450) k/uL Sodium (137-145) mmol/L Carbon Dioxide (22-30) mmol/L BUN (9-20) mg/dL Glucose (74-99) mg/dL POC Glucose (mg/dL) 153 H (75-99) mg/dL Calcium (8.4-10.2) mg/dL AST (17-59) U/L Total Protein (6.3-8.2) g/dL Albumin (3.5-5.0) g/dL
--- NOTE | 2020-11-14 11:07 | P.PN ---
Subjective Progress Note Date: 11/14/20 Pt s/e overall doing well. Had some left upper arm pain, motor sensory intact. CN2-12 grossly intact. incision clean, dry. s/p tcar continue asa/statin and plavix. dc a line and huff increase activity if no clinical changes, okay for earline later today. likely dc home tomorrow given patient lives alone. Objective - Vital Signs Vital signs: Vital Signs Temp 97.7 F 11/14/20 00:00 Pulse 46 L 11/14/20 07:00 Resp 13 11/14/20 07:00 BP 170/64 11/14/20 07:00 Pulse Ox 92 L 11/14/20 07:00 Intake & Output 11/13/20 11/14/20 11/14/20 18:59 06:59 18:59 Intake Total 650 1450 100 Output Total 325 610 40 Balance 325 840 60 Weight 107.9 kg Intake: IV 650 1200 100 Sodium Chloride 0.9% 1, 300 1200 100 000 ml In Empty Bag 1 bag @ 1 ML/KG/HR 103.873 mls /hr IV .Q9H38M ONE Rx#: [id number] Oral 250 Output: Urine 325 610 40 Other: Voiding Method Indwelling Catheter Indwelling Catheter ABP, PAP, CO, CI - Last Documented Arterial Blood Pressure 108/54 - Labs CBC & Chem 7: 11/14/20 05:45 11/14/20 05:45 Labs: Abnormal Lab Results - Last 24 Hours (Table) 11/13/20 11/13/20 11/13/20 Range/Units 13:58 15:47 17:10 WBC (3.8-10.6) k/uL RBC (4.30-5.90) m/uL Plt Count (150-450) k/uL Sodium (137-145) mmol/L Carbon Dioxide (22-30) mmol/L BUN (9-20) mg/dL Glucose (74-99) mg/dL POC Glucose (mg/dL) 125 H 126 H 118 H (75-99) mg/dL Calcium (8.4-10.2) mg/dL AST (17-59) U/L Total Protein (6.3-8.2) g/dL Albumin (3.5-5.0) g/dL 11/13/20 11/14/20 11/14/20 Range/Units 22:46 05:45 05:45 WBC 11.4 H (3.8-10.6) k/uL RBC 4.26 L (4.30-5.90) m/uL Plt Count 148 L (150-450) k/uL Sodium 135 L (137-145) mmol/L Carbon Dioxide 21 L (22-30) mmol/L BUN 21 H (9-20) mg/dL Glucose 137 H (74-99) mg/dL POC Glucose (mg/dL) 150 H (75-99) mg/dL Calcium 8.3 L (8.4-10.2) mg/dL AST 81 H (17-59) U/L Total Protein 5.9 L (6.3-8.2) g/dL Albumin 3.4 L (3.5-5.0) g/dL 11/14/20 Range/Units 06:48 WBC (3.8-10.6) k/uL RBC (4.30-5.90) m/uL Plt Count (150-450) k/uL Sodium (137-145) mmol/L Carbon Dioxide (22-30) mmol/L BUN (9-20) mg/dL Glucose (74-99) mg/dL POC Glucose (mg/dL) 153 H (75-99) mg/dL Calcium (8.4-10.2) mg/dL AST (17-59) U/L Total Protein (6.3-8.2) g/dL Albumin (3.5-5.0) g/dL
[2020-11-14 11:51] LABS: Glucose,Whole Blood 154 mg/dL (75-99)
[2020-11-14 11:52] LABS: Cholesterol 136 mg/dL (<200); HDL Cholesterol 25 mg/dL (40-60); LDL Cholesterol,Calculated 57 mg/dL (0-99); Triglycerides 272 mg/dL (<150)
[2020-11-14] MEDS ORDERED: CLOPIDOGREL 75 MG TAB PO SCH (13:04)
[2020-11-14 14:35] LABS: Hemoglobin A1C 7.6 % (4.0-6.0)
[2020-11-14 16:29] LABS: Glucose,Whole Blood 184 mg/dL (75-99)
[2020-11-14 20:13] LABS: Glucose,Whole Blood 159 mg/dL (75-99)
[2020-11-14] MEDS: ZOLPIDEM 10 MG TAB PO SCH (22:48)
[2020-11-14] MEDS: traZODone HCL 100 MG TAB PO SCH (22:49)
[2020-11-14] MEDS ORDERED: hydrALAZINE HCL 25 MG TAB PO STA (23:20)
[2020-11-15 04:19] LABS: ALT 43 U/L (4-49); AST 65 U/L (17-59); African American GFR (CKD) >90 (>60 ml/min/1.73 sqM); Albumin 3.5 g/dL (3.5-5.0); Alkaline Phosphatase 60 U/L (38-126); Anion Gap 7 mmol/L; Blood Urea Nitrogen 20 mg/dL (9-20); Carbon Dioxide 24 mmol/L (22-30); Chloride 107 mmol/L (98-107); Glucose 100 mg/dL (74-99); Non-African American GFR(CKD) 85 (>60 ml/min/1.73 sqM); Sodium 138 mmol/L (137-145); Total Bilirubin 0.5 mg/dL (0.2-1.3); Total Protein 6.1 g/dL (6.3-8.2)
[2020-11-15 04:20] LABS: HCT 40.4 % (39.0-53.0); HGB 13.4 gm/dL (13.0-17.5); MCH 31.2 pg (25.0-35.0); MCHC 33.2 g/dL (31.0-37.0); MCV 93.9 fL (80.0-100.0); Mean Platelet Volume 7.8; Platelet Count 149 k/uL (150-450); RDW 12.6 % (11.5-15.5); WBC 10.5 k/uL (3.8-10.6)
[2020-11-15 04:22] LABS: Calcium 8.6 mg/dL (8.4-10.2)
[2020-11-15] MEDS: amLODIPine 2.5 MG TAB PO SCH (06:15)
[2020-11-15] MEDS: PSEUDOEPHEDRINE 30 MG TAB PO SCH ×2 (06:16→11:42)
[2020-11-15] MEDS: INSULIN DETEMIR (LEVEMIR) 100 UNIT/ML SYR SQ SCH (06:16)
[2020-11-15 06:44] LABS: Glucose,Whole Blood 132 mg/dL (75-99)
[2020-11-15] MEDS: INSULIN ASPART (NovoLOG) 100 UNIT/ML VIAL SQ SCH ×2 (07:02→11:41)
[2020-11-15] MEDS: METOPROLOL TARTRATE 50 MG TAB PO SCH (07:49)
[2020-11-15] MEDS: lisinopriL 5 MG TAB PO SCH (07:49)
[2020-11-15] MEDS: FENOFIBRATE 160 MG TAB PO SCH (08:24)
[2020-11-15] MEDS: ASPIRIN 81 MG PO SCH (08:24)
[2020-11-15] MEDS: CLOPIDOGREL 75 MG TAB PO SCH (08:24)
[2020-11-15] MEDS: FUROSEMIDE 20 MG TAB PO SCH (08:24)
[2020-11-15] MEDS: ATORVASTATIN 40 MG TAB PO SCH (08:24)
[2020-11-15] MEDS: allopurinoL 100 MG TAB PO SCH (08:25)
[2020-11-15] MEDS: CITALOPRAM HYDROBROMIDE 20 MG TAB PO SCH (08:25)
--- NOTE | 2020-11-15 08:25 | P.PN ---
Subjective Progress Note Date: 11/15/20 This is a 74-year-old male patient came into the intensive care unit following his carotid surgery. The patient underwent a TCAR are procedure for 90% stenosis involving the right internal carotid artery. The patient had an asymptomatic right ICA stenosis that was greater than 90% and surgery was perfo rmed today, and this was an elective surgery. The patient is currently being monitored in the intensive care unit. The patient is on normal saline at the rate of 100 mL an hour. The patient has a left radial arterial line for blood pressure monitoring and he is on no pressors for now. His current blood pressure is ranging between 110 and 160 systolic. He has a right neck and left groin puncture and the puncture sites of been dry clean and intact and there is no evidence of any bleeding or hematoma formation. Neurologically, he is moving all 4 extremities without any limitation. Note that this procedure was done by vascular surgery and he was intubated during the process and the estimated blood loss was only 20 mL. 11/14/2020, the patient is awake and alert. He had a uneventful night following his surgery. He is neurologically intact. No hypotension. Blood work from this morning showed a white cell count of 11.4, hemoglobin of 13.4, his BUN is at 21 with a creatinine of 0.8, his liver function tests are adequate. We will also send a fasting lipid profile and there is also still pending for now.surgical wound site over the right neck area dry clean and intact. He has adequate pulses in the lower extremities bilaterally. The patient had a limited number of hours of sleep yesterday. He had oat meal this morning and the blood sugar from today is 153. He has not received his Levimir 11/15/2020, the patient is being seen for a follow-up. The patient is on room air oxygen. No focal neurological deficits for now. Surgical site is dry clean and intact over the neck area. The patient is moving all 4 extremities. He is relatively bradycardic still and was given a beta sameera yesterday. His heart rate is around 47-49, sinus rhythm. His blood pressure has been elevated. On yesterday's evaluation, IV started him on his Zestril and Norvasc at lower dose. His current BP is 176/69. He is on room air oxygen. Pulse ox is above 90%. He is on aspirin. He is also on Plavix. The fasting lipid profile showed an LDL level of 57. Also, he is on Levemir insulin, blood sugars are been adequately controlled for now. He was started on Levemir insulin at a dose of 55 units which is slightly less than what she takes at home and he is on a sliding scale coverage. The plan is to control his blood pressure more tightly today and make him move and walk and possibly discharge him home today in the afternoon. He is using incentive spirometer. His having bowel movements. Objective - Vital Signs Vital signs: Vital Signs Temp 97.8 F 11/15/20 00:00 Pulse 49 L 11/15/20 04:00 Resp 17 11/15/20 04:00 BP 176/69 11/15/20 04:00 Pulse Ox 90 L 11/15/20 04:00 Intake & Output 11/14/20 11/15/20 11/15/20 18:59 06:59 18:59 Intake Total 1140 500 Output Total 790 1650 Balance 350 -1150 Weight 106.9 kg Intake: IV 900 Sodium Chloride 0.9% 1, 900 000 ml In Empty Bag 1 bag @ 1 ML/KG/HR 103.873 mls /hr IV .Q9H38M ONE Rx#: [id number] Oral 240 500 Output: Urine 790 1650 Other: Voiding Method Toilet Toilet Urinal Urinal ABP, PAP, CO, CI - Last Documented Arterial Blood Pressure 127/54 - Exam The patient appeared well nourished and normally developed. Vital signs as documented. Head exam is unremarkable. No scleral icterus or corneal arcus noted. Neck is without jugular venous distension, thyromegaly, or carotid bruits. Carotid upstrokes are brisk bilaterally. The patient has a clear surgical site on the right neck and there is no significant hematoma formation and the surgical site is dry clean and intact and there are no drains present illness this point in time. Lungs are clear to auscultation and percussion. Cardiac exam reveals the PMI to be normally sized and situated. Rhythm is regular. First and second heart sounds normal. No murmurs, rubs or gallops. Abdominal exam reveals normal bowel sounds, no masses, no organomegaly and no aortic enlargement. Extremities are nonedematous and both femoral and pedal pulses are diminished and there are obtainable by Doppler bilaterally. The feet are cold yet there is adequate capillary refills..Examination of the skin revealed no evidence of significant rashes, suspicious appearing nevi or other concerning lesions.Neurologically, the patient is awake and alert and the patient does not have any focal neurological deficit. Cranial nerves are essentially intact. - Labs CBC & Chem 7: 11/15/20 03:16 11/15/20 03:16 Labs: Abnormal Lab Results - Last 24 Hours (Table) 11/14/20 11/14/20 11/14/20 Range/Units 05:38 11:43 11:50 Plt Count (150-450) k/uL Glucose (74-99) mg/dL POC Glucose (mg/dL) 154 H (75-99) mg/dL Hemoglobin A1c 7.6 H (4.0-6.0) % AST (17-59) U/L Total Protein (6.3-8.2) g/dL Triglycerides 272 H (<150) mg/dL HDL Cholesterol 25 L (40-60) mg/dL 11/14/20 11/14/20 11/15/20 Range/Units 16:27 20:12 03:16 Plt Count 149 L (150-450) k/uL Glucose (74-99) mg/dL POC Glucose (mg/dL) 184 H 159 H (75-99) mg/dL Hemoglobin A1c (4.0-6.0) % AST (17-59) U/L Total Protein (6.3-8.2) g/dL Triglycerides (<150) mg/dL HDL Cholesterol (40-60) mg/dL 11/15/20 11/15/20 Range/Units 03:16 06:43 Plt Count (150-450) k/uL Glucose 100 H (74-99) mg/dL POC Glucose (mg/dL) 132 H (75-99) mg/dL Hemoglobin A1c (4.0-6.0) % AST 65 H (17-59) U/L Total Protein 6.1 L (6.3-8.2) g/dL Triglycerides (<150) mg/dL HDL Cholesterol (40-60) mg/dL Assessment and Plan Plan: 1 asymptomatic 90% internal carotid artery stenosis post TCAR, the patient is currently in the intensive care unit for monitoring. Neurologically intact. No focal neurological deficit. the patient is postop day #2. Hemodynamically stable. Slightly bradycardic and he is asymptomatic in that regard. 2 diabetes mellitus, restart on Levemir insulin 3 hypertension, BP is slightly elevated 4 hyperlipidemia 5 coronary artery disease with previous bypass surgery 6 peripheral vascular disease with claudication involving the lower extremities 7 obesity 8 History of seizure disorder, currently inactive in stable 9 gout Plan Neurologically intact Monitor the surgical wound sites, wound is essentially clear. Continue aspirin and Plavix, aspirin 81 mg and Plavix at 75 mg Lopressor 50 mg by mouth twice a day with parameters, avoid giving it as long as the heart rate is less than 55 IV fluids to KVO Restart Norvasc and Zestril and modify the dose for tighter blood pressure control. We'll increase the Norvasc up to 5 mg and restart Imdur Restarted the metformin 500 mg at bedtime, trazodone 100 mg at bedtime, Imdur 30 mg by mouth daily, allopurinol 100 mg by mouth daily fasting lipid profile was noted and the patient is on a statin Levemir insulin was restarted in addition to his vascular coverage Ambulate this patient in the hallway. He is able to manage himself while, he will be discharged home today.
[2020-11-15] MEDS ORDERED: amLODIPine 2.5 MG TAB PO STA (08:37)
--- NOTE | 2020-11-15 08:44 | XR ---
KUB HISTORY: Abdominal pain. COMPARISON: None. TECHNIQUE: Supine and upright views of the abdomen were obtained. FINDINGS: Visualized lung bases are clear. There is no free intraperitoneal air. Bowel gas pattern is nonspecific. There is no suspicious abdominal or pelvic calcification. The osseous structures are grossly intact. IMPRESSION: Nonspecific abdomen.
[2020-11-15] MEDS ORDERED: ISOSORBIDE MONONITRATE ER 30 MG TAB.ER.24H PO SCH (09:00)
[2020-11-15 10:55] LABS: Glucose,Whole Blood 187 mg/dL (75-99)
[2020-11-15 11:47] VITALS: BP 165/58; PULSE 46; RESP 20; TEMP 97.9
--- NOTE | 2020-11-15 12:26 | P.PN ---
Subjective Progress Note Date: 11/15/20 Principal diagnosis: carotid artery disease Patient is a 74-year-old male past medical history of diabetes mellitus type 2 insulin requiring, coronary artery disease, hypertension, dyslipidemia, and carotid stenosis who presented for transcarotid artery revascularization with stenting. We were consulted for medical management. Patient with HR in the 40s overnight. His BP was elevated and his imdur was restarted and norvasc was increased. Patient seen and examined at bedside. Pain is better today, was able to eat well, no nausea, no vomiting. Feeling tired. General: Ill-appearing, no distress, appears at stated age Derm: warm, dry Head: atraumatic, normocephalic, symmetric Eyes: EOMI, no lid lag, anicteric sclera Mouth: no lip lesion, mucus membranes moist, dressing over her anterior right neck minimal amount of soak through Cardiovascular: S1S2 reg, no murmur, positive posterior tibial pulse bilateral, Lungs: Decreased breath sounds bilateral, no rhonchi, no rales , no accessory muscle use Abdominal: soft, nontender to palpation, no guarding, no appreciable organomegaly Ext: no gross muscle atrophy, no edema, no contractures Neuro: CN II-XI grossly intact, no focal neuro deficits Psych: Alert, oriented, appropriate affect 73 M s/p transcarotid artery revascularization with stenting. Management per vascular HTN, urgency - follow BP - lopressor, lisinopril - norvasc increased and imdur restarted. DM 2 -Instructions added to discharge paper work if >150 then Lantus 70 units and <150 then lantus 55 units. - SSI - follow BS Bradycardia, asymptomatic - hold lopressor - follow Hr ASCAD - stain - plavix HLD - statin and fenofibrate Chronic: seizure disorder kidney disease obesity Medically optimized for discharge, follow up with PCP in 1 week Objective - Vital Signs Vital signs: Vital Signs Temp 97.9 F 11/15/20 11:30 Pulse 46 L 11/15/20 11:30 Resp 20 11/15/20 11:30 BP 165/58 11/15/20 11:30 Pulse Ox 94 L 11/15/20 11:30 Intake & Output 11/14/20 11/15/20 11/15/20 18:59 06:59 18:59 Intake Total 1140 500 Output Total 790 1650 Balance 350 -1150 Weight 106.9 kg Intake: IV 900 Sodium Chloride 0.9% 1, 900 000 ml In Empty Bag 1 bag @ 1 ML/KG/HR 103.873 mls /hr IV .Q9H38M ONE Rx#: [id number] Oral 240 500 Output: Urine 790 1650 Other: Voiding Method Toilet Toilet Toilet Urinal Urinal Urinal ABP, PAP, CO, CI - Last Documented Arterial Blood Pressure 127/54 - Labs CBC & Chem 7: 11/15/20 03:16 11/15/20 03:16 Labs: Abnormal Lab Results - Last 24 Hours (Table) 11/14/20 11/14/20 11/14/20 Range/Units 05:38 16:27 20:12 Plt Count (150-450) k/uL Glucose (74-99) mg/dL POC Glucose (mg/dL) 184 H 159 H (75-99) mg/dL Hemoglobin A1c 7.6 H (4.0-6.0) % AST (17-59) U/L Total Protein (6.3-8.2) g/dL 11/15/20 11/15/20 11/15/20 Range/Units 03:16 03:16 06:43 Plt Count 149 L (150-450) k/uL Glucose 100 H (74-99) mg/dL POC Glucose (mg/dL) 132 H (75-99) mg/dL Hemoglobin A1c (4.0-6.0) % AST 65 H (17-59) U/L Total Protein 6.1 L (6.3-8.2) g/dL 11/15/20 Range/Units 10:53 Plt Count (150-450) k/uL Glucose (74-99) mg/dL POC Glucose (mg/dL) 187 H (75-99) mg/dL Hemoglobin A1c (4.0-6.0) % AST (17-59) U/L Total Protein (6.3-8.2) g/dL
[2020-11-15] MEDS ORDERED: metFORMIN 500 MG TAB PO SCH (21:00)
[2020-11-16] MEDS ORDERED: amLODIPine 5 MG TAB PO SCH (09:00)
--- NOTE | 2020-11-17 11:46 | P.DS ---
Providers Date of admission: 11/13/20 09:19 Attending physician: Nicolas Mercado DO Consults: 11/13/20 13:14 Consult Physician Routine Consulting Provider: Josemanuel Pacheco Consult Reason/Comments: med managment Do you want consulting provider notified?: Yes 11/13/20 13:15 Consult Physician Routine Consulting Provider: Allan Poon Consult Reason/Comments: post op carotid stent Do you want consulting provider notified?: Yes 11/13/20 18:21 Consult Physician Routine Consulting Provider: Trina Ambriz Consult Reason/Comments: medical management Do you want consulting provider notified?: Yes Primary care physician: Josemanuel Pacheco DO - Discharge Diagnosis(es) (1) Carotid artery stenosis Status: Acute Hospital Course: Presented to hospital for carotid artery revascularization which was completed on 11/13/2020. He had a unremarkable course in the hospital, did well and was discharged on 11/15/2020. Procedures: R TCAR Patient Condition at Discharge: Good Plan - Discharge Summary Discharge Rx Participant: No New Discharge Prescriptions: New amLODIPine [Norvasc] 5 mg PO DAILY #30 tab Continue traZODone HCL [Desyrel] 100 mg PO HS metFORMIN HCL [Glucophage] 500 mg PO HS Zolpidem [Ambien] 10 mg PO HS Multivitamins, Thera [Multivitamin (formulary)] 1 tab PO DAILY Isosorbide Mononitrate ER [Imdur] 30 mg PO DAILY Insulin Glargine [Lantus] 70 units SQ QAM gemfibroziL [Lopid] 600 mg PO BID Furosemide [Lasix] 60 mg PO DAILY Clopidogrel [Plavix] 75 mg PO DAILY B Complex-Vit C-Vit E-Zinc [Z-Bec] 1 tab PO DAILY Atorvastatin [Lipitor] 40 mg PO DAILY Aspirin EC [Ecotrin Low Dose] 81 mg PO DAILY Citalopram Hydrobromide [CeleXA] 40 mg PO DAILY allopurinoL [Zyloprim] 100 mg PO DAILY lisinopriL [Zestril] 5 mg PO BID #60 tab Metoprolol Tartrate [Lopressor] 50 mg PO BID #60 tab Insulin Aspart [NovoLOG] 20 unit SQ AC-BRKFST Insulin Aspart [NovoLOG] 20 unit SQ AC-SUPPER Discontinued amLODIPine [Norvasc] 2.5 mg PO DAILY #30 tab Discharge Medication List Aspirin EC [Ecotrin Low Dose] 81 mg PO DAILY 01/19/16 [History] Atorvastatin [Lipitor] 40 mg PO DAILY 01/19/16 [History] B Complex-Vit C-Vit E-Zinc [Z-Bec] 1 tab PO DAILY 01/19/16 [History] Clopidogrel [Plavix] 75 mg PO DAILY 01/19/16 [History] Furosemide [Lasix] 60 mg PO DAILY 01/19/16 [History] Insulin Glargine [Lantus] 70 units SQ QAM 01/19/16 [History] Isosorbide Mononitrate ER [Imdur] 30 mg PO DAILY 01/19/16 [History] Multivitamins, Thera [Multivitamin (formulary)] 1 tab PO DAILY 01/19/16 [History] Zolpidem [Ambien] 10 mg PO HS 01/19/16 [History] gemfibroziL [Lopid] 600 mg PO BID 01/19/16 [History] metFORMIN HCL [Glucophage] 500 mg PO HS 01/19/16 [History] traZODone HCL [Desyrel] 100 mg PO HS 01/19/16 [History] Citalopram Hydrobromide [CeleXA] 40 mg PO DAILY 11/15/17 [History] allopurinoL [Zyloprim] 100 mg PO DAILY 11/15/17 [History] lisinopriL [Zestril] 5 mg PO BID #60 tab 11/23/17 [Rx] Metoprolol Tartrate [Lopressor] 50 mg PO BID #60 tab 11/24/17 [Rx] Insulin Aspart [NovoLOG] 20 unit SQ AC-BRKFST 08/17/18 [History] Insulin Aspart [NovoLOG] 20 unit SQ AC-SUPPER 08/17/18 [History] amLODIPine [Norvasc] 5 mg PO DAILY #30 tab 11/15/20 [Rx] Patient Instructions/Handouts: Carotid Endarterectomy (DC), Carotid Artery Stent Placement (DC) Activity/Diet/Wound Care/Special Instructions: Activity: [No driving for 2 days] Diet: [] Wound Care: [May shower tomorrow] Special Instructions: Morning blood sugar before eating is less than 150 take Lantus 55 units, if morning blood sugar is greater than 150 take Lantus 70 units. Discharge Disposition: HOME SELF-CARE
== END 2020-11-15 13:42 | disposition home or self-care (01) | DRG 36 ==
LOC: 2ORMAIN 09:19 → 2SICU 14:56
PROVIDERS: ADMIT Surgery; ATTEND Surgery
PROC: 037H3DZ Dilation of Right Common Carotid Artery with Intraluminal Device, Percutaneous Approach (ICD-10-PCS; principal; 2020-11-13 11:30)
DX: I65.21 Occlusion and stenosis of right carotid artery (principal); E11.51 Type 2 diabetes mellitus with diabetic peripheral angiopathy without gangrene; I70.213 Atherosclerosis of native arteries of extremities with intermittent claudication, bilateral legs; Z79.4 Long term (current) use of insulin; E66.9 Obesity, unspecified; Z68.33 Body mass index [BMI] 33.0-33.9, adult; E78.5 Hyperlipidemia, unspecified; G40.409 Other generalized epilepsy and epileptic syndromes, not intractable, without status epilepticus; I10 Essential (primary) hypertension; I25.10 Atherosclerotic heart disease of native coronary artery without angina pectoris; N28.9 Disorder of kidney and ureter, unspecified; M10.9 Gout, unspecified; Z79.02 Long term (current) use of antithrombotics/antiplatelets; Z79.82 Long term (current) use of aspirin; Z79.899 Other long term (current) drug therapy; Z80.6 Family history of leukemia; Z80.8 Family history of malignant neoplasm of other organs or systems; Z82.0 Family history of epilepsy and other diseases of the nervous system; Z87.442 Personal history of urinary calculi; Z87.891 Personal history of nicotine dependence; Z95.1 Presence of aortocoronary bypass graft; Z95.5 Presence of coronary angioplasty implant and graft; Z88.1 Allergy status to other antibiotic agents; Z88.8 Allergy status to other drugs, medicaments and biological substances
CPT/HCPCS: 37215; 74018; 80053; 80061; 83036; 85027

== ENCOUNTER → 2021-04-23 | Outpatient (CLI) | payer MEDICARE, BC ==
[2021-04-23 09:20] LABS: Potassium 4.8 mmol/L (3.5-5.1)
[2021-04-23 09:24] LABS: Basophils # (A) 0.1 k/uL (0-0.2); Basophils % (A) 1 %; Eosinophils # (A) 0.4 k/uL (0-0.7); Eosinophils % (A) 4 %; HCT 44.9 % (39.0-53.0); HGB 15.6 gm/dL (13.0-17.5); Lymphocytes % (A) 31 %; MCH 32.7 pg (25.0-35.0); MCHC 34.7 g/dL (31.0-37.0); MCV 94.4 fL (80.0-100.0); Mean Platelet Volume 7.4; Monocytes # (A) 0.5 k/uL (0-1.0); Monocytes % (A) 5 %; Neutrophils # (A) 5.6 k/uL (1.3-7.7); Neutrophils % (A) 57 %; Platelet Count 238 k/uL (150-450); RBC 4.76 m/uL (4.30-5.90); RDW 13.5 % (11.5-15.5); WBC 9.8 k/uL (3.8-10.6)
== END | disposition home or self-care (01) ==
LOC: LABWHC1 08:30
PROVIDERS: ATTEND Surgery
DX: Z01.812 Encounter for preprocedural laboratory examination (principal); I73.9 Peripheral vascular disease, unspecified
CPT/HCPCS: 36415; 80051; 82565; 84520; 85025

== ENCOUNTER 2021-05-04 09:52 | Day surgery (SDC) | payer MEDICARE, BC ==
[2021-04-29 13:30] VITALS: BMI 33.0
[~2021-05-04 09:52] MED LIST changes: +ASPIRIN 325 MG TAB PO PRN; -CLOPIDOGREL 75 MG TAB PO PRN; -DEXAMETHASONE SOD PHOSPHATE 4 MG/ML 1 ML VIAL IV ONE; +HEPARIN SODIUM,PORCINE 10,000 UNIT in SODIUM CHLORIDE 0.9% 1,000 ML IRRIGATION PRN; +HEPARIN SODIUM,PORCINE 2,500 UNIT in SODIUM CHLORIDE 0.9% 250 ML IRRIGATION PRN; -MIDAZOLAM 2 MG/2 ML VIAL IV PRN; -NITROGLYCERIN SL TABS 0.4 MG TAB SUBLINGUAL PRN; -ONDANSETRON 4 MG/2 ML VIAL IVP ONE; +ZOLPIDEM 5 MG TAB PO PRN
[2021-05-04 10:34] LABS: Glucose,Whole Blood 149 mg/dL (75-99)
[2021-05-04] MEDS ORDERED: fentaNYL (PF) 50 MCG/ML 2 ML AMP ONE (11:32)
[2021-05-04] MEDS ORDERED: LIDOCAINE 1% INJ 10MG/ML (20 ML MDV) ONE (11:32)
[2021-05-04] MEDS: MIDAZOLAM 2 MG/2 ML VIAL IVP ONE ×3 (11:41→12:29)
[2021-05-04] MEDS ORDERED: fentaNYL (PF) 50 MCG/ML 2 ML AMP IVP ONE (11:41)
[2021-05-04] MEDS ORDERED: LIDOCAINE 1% INJ 10MG/ML (20 ML MDV) SQ ONE (11:45)
[2021-05-04] MEDS ORDERED: HEPARIN SODIUM 1,000 UN/ML (10ML VL) ONE (11:55)
[2021-05-04] MEDS ORDERED: HEPARIN SODIUM 1,000 UN/ML (10ML VL) IVP ONE (11:57)
[2021-05-04] MEDS ORDERED: IOPAMIDOL-250 100ML BTL INTRAARTER ONE (13:20)
[2021-05-04] MEDS ORDERED: CLOPIDOGREL 75 MG TAB ONE (13:21)
[2021-05-04] MEDS ORDERED: CLOPIDOGREL 75 MG TAB PO ONE (13:22)
[2021-05-04] MEDS ORDERED: MAG HYDROX/AL HYDROX/SIMETH 30 ML CUP ONE (14:17)
[2021-05-04] MEDS ORDERED: INSULIN ASPART (NovoLOG) 100 UNIT/ML VIAL SQ SCH (17:30)
[2021-05-04 17:32] VITALS: PULSE 48; RESP 16
[2021-05-04 17:35] VITALS: BP 176/72
[2021-05-04] MEDS ORDERED: traZODone HCL 100 MG TAB PO SCH (21:00)
[2021-05-04] MEDS ORDERED: METOPROLOL TARTRATE 50 MG TAB PO SCH (21:00)
[2021-05-04] MEDS ORDERED: ZOLPIDEM 10 MG TAB PO SCH (21:00)
[2021-05-04] MEDS ORDERED: ASPIRIN 81 MG PO SCH (21:00)
[2021-05-04] MEDS ORDERED: lisinopriL 10 MG TAB PO SCH (21:00)
[2021-05-05] MEDS ORDERED: INSULIN ASPART (NovoLOG) 100 UNIT/ML VIAL SQ SCH (07:30)
[2021-05-05] MEDS ORDERED: EZETIMIBE 10 MG TAB PO SCH (09:00)
[2021-05-05] MEDS ORDERED: INSULIN DETEMIR (LEVEMIR) 100 UNIT/ML SYR SQ SCH (09:00)
[2021-05-05] MEDS ORDERED: ATORVASTATIN 40 MG TAB PO SCH (09:00)
[2021-05-05] MEDS ORDERED: VITAMIN E PO SCH (09:00)
[2021-05-05] MEDS ORDERED: ASCORBIC ACID PO SCH (09:00)
[2021-05-05] MEDS ORDERED: [UNRECOGNIZED DRUG - OTHER] PO SCH (09:00)
[2021-05-05] MEDS ORDERED: allopurinoL 100 MG TAB PO SCH (09:00)
[2021-05-05] MEDS ORDERED: FUROSEMIDE 20 MG TAB PO SCH (09:00)
[2021-05-05] MEDS ORDERED: CLOPIDOGREL 75 MG TAB PO SCH (09:00)
[2021-05-05] MEDS ORDERED: ESCITALOPRAM 10 MG TAB PO SCH (09:00)
[2021-05-05] MEDS ORDERED: amLODIPine 5 MG TAB PO SCH (09:00)
[2021-05-05] MEDS ORDERED: ZINC PO SCH (09:00)
[2021-05-05] MEDS ORDERED: FENOFIBRATE 160 MG TAB PO SCH (09:00)
[2021-05-05] MEDS ORDERED: ISOSORBIDE MONONITRATE ER 30 MG TAB.ER.24H PO SCH (09:00)
[2021-05-05] MEDS ORDERED: CITALOPRAM HYDROBROMIDE 20 MG TAB PO SCH (09:00)
[2021-05-05] MEDS ORDERED: ASCORBIC ACID 500 MG TAB PO SCH (09:00)
[2021-05-05] MEDS ORDERED: MULTIVITAMINS, THERA 1 EACH TAB PO SCH (09:00)
--- NOTE | 2021-05-06 10:10 | IR ---
Fluoroscopy HISTORY: Peripheral vascular occlusive disease 29.8 minutes fluoroscopy time supplied to the referring clinician. 257 intraoperative C-arm images d ocument the procedure. See dictated report from vascular surgery.
--- NOTE | 2021-05-08 08:46 | P.OP ---
Date of Procedure: 05/04/21 Description of Procedure: Preoperative diagnosis: Disabling claudication [place] classification 3 Postoperative diagnosis: Same, left superficial femoral artery stenosis greater than 90% Procedure: #1 ultrasound-guided right common femoral artery access. #2 left lower extremity selective angiogram third order. #3 left lower extremity superficial femoral artery atherectomy with Hawk one device. #4 percutaneous transluminal balloon angioplasty of the left superficial femoral artery with drug-eluting balloon. #5 percutaneous stenting of the left superficial femoral artery with Zilver PTX stent. Surgeon: Nicolas Mercado DO [employer] Production Line: None Anesthesia: Local with sedation Estimated blood loss: 10 cc Complications: None Condition: Stable Findings: Greater than 90% stenosis of the left superficial femoral artery with dense calcification Disposition: Multiphasic PT signal Indication for procedure: 75-year-old gentleman who presented to the office secondary to increased pain with ambulation. He had a history of lower extremity claudication as well as previous angiogram which demonstrated s ignificant occlusions and bilateral superficial femoral arteries. Previously he underwent carotid intervention for his carotid stenosis and since that time his pain with ambulation has worsened. Previously he had arterial Dopplers that were diminished and due to his increased symptoms it was determined he would need intervention for his left lower extremity. He presents today for such procedure. Operative narrative: After written and informed consent was obtained from the patient and all risks, benefits, and complications were discussed the patient was brought to the Plant And Machinery Valuer and laid in a Supine position. The area of the Bilateral groin was prepped and draped in the usual fashion. Timeout was performed in usual fashion. Utilizing ultrasound the right common femoral artery was visualized and demonstrated no significant plaque or occlusion and therefore was accessed with a multipurpose needle and guidewire was placed. 5 [place] Islander sheath was then placed utilizing Seldinger technique. 035 guidewire was then guided into the descending aorta followed by a rim catheter and the left iliac system was accessed. Selective angiogram was then obtained of the left lower extremity demonstrating significant stenosis greater than 90% involving the superficial femoral artery In 2 spots on the left. 035 Glidewire advantage was then placed followed by a long 55 cm Cook 6F sheath. Patient was then administered heparin and followed with ACTs. 035 Glidewire was then placed into the superficial femoral artery followed by a quick cross catheter and the lesion was crossed. Selective angiogram was then obtained distal to the lesion demonstrating good access within the lumen. A 5 [place] spider filter was then placed and a 4 mm balloon was utilized for predilatation of the lesion. Ath erectomy was then performed with a [place] one device with multiple passes. Due to the dense calcification There was still an area of significant stenosis and therefore angioplasty was performed with a 5mm drug-eluting balloon. Once completed there was a small dissection noted at the calcification which was [id number] but due to the significant calcification and lumen it was determined to place a stent. A Zilver PTX stent was then placed Across both lesions. Finally anterior was obtained demonstrating brisk flow through the superficial femoral artery with resolution of the stenosis by greater than 80%. There was two-vessel runoff to the ankle at the conclusion of the procedure. All guidewires and catheters were then removed. The sheath was then replaced with a short 6 [place]er sheath and a Vascade closure device was placed in usual fashion. Patient had multiphasic signal DP and PT at the conclusion of the procedure. The area was cleansed and dressings were placed. The patient was sent to PACU for recovery.
== END 2021-05-04 18:05 | disposition home or self-care (01) ==
LOC: CATHCVL 09:52
PROVIDERS: ATTEND Surgery
DX: I70.213 Atherosclerosis of native arteries of extremities with intermittent claudication, bilateral legs (principal); Z88.1 Allergy status to other antibiotic agents; Z90.49 Acquired absence of other specified parts of digestive tract; Z79.82 Long term (current) use of aspirin
CPT/HCPCS: 37227; C1894 ×2; C1769 ×4; C1725; C1887; C1714; C1884; C1876; C2623 ×2; C1874; C1760; J2250; J2001; J3010; J1644; Q9966

== ENCOUNTER 2021-06-04 09:33 | Emergency (ER) | payer MEDICARE, BC ==
[2021-06-04 09:42] VITALS: RESP 18; TEMP 98.2
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
[2021-06-04 11:10] VITALS: BP 146/59; PULSE 47
--- NOTE | 2021-06-04 11:17 | US ---
EXAMINATION TYPE: US venous doppler duplex LE LT DATE OF EXAM: 06/04/2021 10:41 AM COMPARISON: NONE CLINICAL HISTORY: pain, edema. Pain and edema x 2 days within lateral calf. Stent was placed . No hx of DVT. Patient on Plavix. SIDE PERFORMED: Left TECHNIQUE: The lower extremity deep venous system is examined utilizing real time linear array sonog marco antonio with graded compression, doppler sonography and color-flow sonography. VESSELS IMAGED: Common Femoral Vein Deep Femoral Vein Greater Saphenous Vein * Femoral Vein Popliteal Vein Small Saphenous Vein * Proximal Calf Veins (* superficial vessels) Left Leg: No evidence of DVT in veins imaged at this time. At patient's area of concern/palpable area within the left lateral calf, there appears to be a hypoec hoic fluid appearing area measuring 1.2 x 1.1 x 0.3 cm. Satisfactory phasicity, compressibility, and color flow throughout the left lower extremity. IMPRESSION: No ultrasound evidence for acute DVT in the left lower extremity. Tiny lateral deep subc utaneous fluid collection possible resolving hematoma noted towards the end of study.
== END 2021-06-04 11:52 | disposition home or self-care (01) ==
LOC: EC 09:33
DX: S80.12XA Contusion of left lower leg, initial encounter (principal); I10 Essential (primary) hypertension; I25.10 Atherosclerotic heart disease of native coronary artery without angina pectoris; E11.9 Type 2 diabetes mellitus without complications; E78.5 Hyperlipidemia, unspecified; G40.409 Other generalized epilepsy and epileptic syndromes, not intractable, without status epilepticus; F32.9 Major depressive disorder, single episode, unspecified; Z79.82 Long term (current) use of aspirin; Z79.4 Long term (current) use of insulin; Z88.1 Allergy status to other antibiotic agents; Z87.442 Personal history of urinary calculi; Z90.49 Acquired absence of other specified parts of digestive tract; Z95.1 Presence of aortocoronary bypass graft; Z95.5 Presence of coronary angioplasty implant and graft; Z87.891 Personal history of nicotine dependence; Z79.02 Long term (current) use of antithrombotics/antiplatelets; Z85.828 Personal history of other malignant neoplasm of skin; X58.XXXA Exposure to other specified factors, initial encounter
CPT/HCPCS: 99283

== ENCOUNTER → 2021-07-23 | Outpatient (CLI) | payer MEDICARE, BC ==
[2021-07-23 09:12] LABS: Basophils # (A) 0.1 k/uL (0-0.2); Basophils % (A) 1 %; Eosinophils # (A) 0.4 k/uL (0-0.7); Eosinophils % (A) 4 %; HCT 43.4 % (39.0-53.0); HGB 14.7 gm/dL (13.0-17.5); Lymphocytes # (A) 2.7 k/uL (1.0-4.8); Lymphocytes % (A) 29 %; MCH 31.6 pg (25.0-35.0); MCHC 33.8 g/dL (31.0-37.0); MCV 93.5 fL (80.0-100.0); Mean Platelet Volume 7.6; Monocytes # (A) 0.4 k/uL (0-1.0); Monocytes % (A) 5 %; Neutrophils # (A) 5.5 k/uL (1.3-7.7); Neutrophils % (A) 59 %; Platelet Count 208 k/uL (150-450); RBC 4.64 m/uL (4.30-5.90); RDW 13.1 % (11.5-15.5); WBC 9.3 k/uL (3.8-10.6)
[2021-07-23 09:32] LABS: Potassium 4.3 mmol/L (3.5-5.1)
== END | disposition home or self-care (01) ==
LOC: LABPAT 07:21
PROVIDERS: ATTEND Surgery
DX: Z01.812 Encounter for preprocedural laboratory examination (principal); I74.3 Embolism and thrombosis of arteries of the lower extremities
CPT/HCPCS: 36415; 80051; 82565; 84520; 85025

== ENCOUNTER 2021-07-27 08:45 | Day surgery (SDC) | payer MEDICARE, BC ==
[~2021-07-27 08:45] MED LIST changes: -ALPRAZolam 0.5 MG TAB PO PRN
[2021-07-27 09:18] LABS: Glucose,Whole Blood 180 mg/dL (75-99)
[2021-07-27 09:22] VITALS: TEMP 98.1
[2021-07-27] MEDS ORDERED: LIDOCAINE 1% INJ 10MG/ML (20 ML MDV) ONE (09:28)
[2021-07-27] MEDS ORDERED: fentaNYL (PF) 50 MCG/ML 2 ML AMP ONE (09:37)
[2021-07-27] MEDS: fentaNYL (PF) 50 MCG/ML 2 ML AMP IV ONE ×3 (10:07→11:24)
[2021-07-27] MEDS: MIDAZOLAM 2 MG/2 ML VIAL IV ONE ×3 (10:10→10:31)
[2021-07-27] MEDS ORDERED: LIDOCAINE 1% INJ 10MG/ML (20 ML MDV) SQ ONE (10:10)
[2021-07-27] MEDS ORDERED: HEPARIN SODIUM 1,000 UN/ML (10ML VL) ONE (10:15)
[2021-07-27] MEDS ORDERED: IOPAMIDOL-250 100ML BTL INTRAARTER ONE ×2 (11:33)
--- NOTE | 2021-07-27 12:08 | P.OP ---
Date of Procedure: 07/27/21 Description of Procedure: Preoperative diagnosis: Disabling claudication [place] classification 3 Postop diagnosis: Disabling claudication [place] classification 3, right superficial femoral artery focal occlusion Procedure: Aortogram with bilateral lower extremity runoffs via left common femoral artery access under ultrasound guidance, selective right lower extremity femoral angiogram third order, unsuccessful revascularization of the right superficial femoral artery Surgeon: Jess Anesthesia: Moderate sedation times 88 minutes Estimated blood loss: 10 mL Complications: None Condition: Stable Findings: Aorta: Patent without significant calcification or stenosis. Patent bilateral renal arteries. Iliacs: Bilateral common iliac arteries are patent with mild stenosis noted in the left common iliac around the area of calcification. Bilateral internal and external iliac arteries are patent with mild atherosclerotic disease without any significant stenosis. Femorals: Bilateral common femoral, profundus femoris arteries are patent with moderate calcification without significant stenosis. Right superficial femoral artery has a small area of chronic occlusion with reconstitution of the distal superficial femoral artery with multiple collateralization. Left superficial femoral artery is patent with stent in place across the popliteal artery that is widely patent without any evidence of stenosis Popliteal: Right popliteal artery is widely patent with minimal calcification and atherosclerotic disease. No evidence of significant stenosis. Left popliteal artery with stent in place is patent without stenosis. Tibials: Bilateral tibial peritoneal trunk is patent with three-vessel runoff to the ankle. There is some atherosclerotic and calcific disease noted throughout the lower tibial arteries. Indication for procedure: 75-year-old gentleman with history of arterial disea se and claudication with worsening lower extremity arterial Dopplers and ABIs now .62 on the right and .87 on the left presents to the hospital for aortogram with runoff and possible revascularization of his right lower extremity. He does have a history of previous revascularization of his left lower extremity and stent placement. He only walk one block without significant pain and states he would like to intervention like he did on the left area and he presents today for such procedure. Operative narrative: After written informed consent was obtained the patient all risks benefits competitions were described the patient is brought to the Television Production Clerk and laid in a supine position. The area of the left groin was prepped and draped in the usual sterile fashion. Local anesthesia with moderate sedation was performed with continuous pulse ox monitoring and EKG monitoring. Utilizing ultrasound the left common femoral artery was visualized and shown to be patent with posterior calcification and plaque noted. Utilizing a multipurpose needle under ultrasound guidance the artery was accessed. Guidewire was placed followed by 5-[place] sheath. 035 Glidewire was then placed into the aorta followed by an RBI catheter. Aortogram was then obtained with hand injection. Catheter was then placed up and over into the right common femoral artery and angiogram was obtained of the right lower extremity. Via the left femoral sheath a angiogram of the left lower extremity was also obtained. Due to the lesion in the superficial femoral artery and his claudication we determined to attempt at revascularizing and the wire was exchanged for a stiff wire and a 7- [place] raabe sheath placed up and over into the iliac system. He was then given heparin and followed with ACTs. Due to the difficult bifurcation we utilized a 5 x 40 mm balloon and tracts the sheath over the balloon into the common femoral artery/external iliac artery junction. Multiple attempts were then performed with multiple different wires and catheters to get across the lesion. We are unable to cross the lesion safely. There was a dissection flap through the occlusion but reconstitution distally and filled a fast down to his foot. At this time due to his symptoms not being rest pain or wound related we concluded the procedure. All catheters and sheaths were then removed. A vascade closure device was placed and mesh was held for hemostasis. Patient tolerated procedure well was sent to PACU for recovery. We will see him in 2 weeks to discuss possible options including bypass versus retrograde access and attempt at revascularization once again. Plan - Discharge Summary Discharge Rx Participant: No New Discharge Prescriptions: No Action traZODone HCL [Desyrel] 100 mg PO HS metFORMIN HCL [Glucophage] 500 mg PO HS Zolpidem [Ambien] 10 mg PO HS PRN PRN Reason: Insomnia Multivitamins, Thera [Multivitamin (formulary)] 1 tab PO DAILY Isosorbide Mononitrate ER [Imdur] 30 mg PO QAM Insulin Glargine [Lantus Vial] 70 units SQ QAM gemfibroziL [Lopid] 600 mg PO BID Furosemide [Lasix] 40 mg PO QAM Clopidogrel [Plavix] 75 mg PO DAILY B Complex-Vit C-Vit E-Zinc [Z-Bec] 1 tab PO DAILY Atorvastatin [Lipitor] 40 mg PO QAM Aspirin EC [Ecotrin Low Dose] 81 mg PO HS Citalopram Hydrobromide [CeleXA] 40 mg PO QAM allopurinoL [Zyloprim] 100 mg PO QAM Metoprolol Tartrate [Lopressor] 50 mg PO BID #60 tab Insulin Aspart [NovoLOG] 20 unit SQ BID-W/MEALS Ascorbic Acid [Vitamin C] 1,000 mg PO DAILY Lisinopril [Zestril] 10 mg PO BID amLODIPine [Norvasc] 10 mg PO QAM Ezetimibe [Zetia] 10 mg PO QAM Furosemide [Lasix] 20 mg PO QAM Discharge Medication List Aspirin EC [Ecotrin Low Dose] 81 mg PO HS 01/19/16 [History] Atorvastatin [Lipitor] 40 mg PO QAM 01/19/16 [History] B Complex-Vit C-Vit E-Zinc [Z-Bec] 1 tab PO DAILY 01/19/16 [History] Clopidogrel [Plavix] 75 mg PO DAILY 01/19/16 [History] Furosemide [Lasix] 40 mg PO QAM 01/19/16 [History] Insulin Glargine [Lantus Vial] 70 units SQ QAM 01/19/16 [History] Isosorbide Mononitrate ER [Imdur] 30 mg PO QAM 01/19/16 [History] Multivitamins, Thera [Multivitamin (formulary)] 1 tab PO DAILY 01/19/16 [History] Zolpidem [Ambien] 10 mg PO HS PRN 01/19/16 [History] gemfibroziL [Lopid] 600 mg PO BID 01/19/16 [History] metFORMIN HCL [Glucophage] 500 mg PO HS 01/19/16 [History] traZODone HCL [Desyrel] 100 mg PO HS 01/19/16 [History] Citalopram Hydrobromide [CeleXA] 40 mg PO QAM 11/15/17 [History] allopurinoL [Zyloprim] 100 mg PO QAM 11/15/17 [History] Metoprolol Tartrate [Lopressor] 50 mg PO BID #60 tab 11/24/17 [Rx] Insulin Aspart [NovoLOG] 20 unit SQ BID-W/MEALS 08/17/18 [History] Ascorbic Acid [Vitamin C] 1,000 mg PO DAILY 04/29/21 [History] Ezetimibe [Zetia] 10 mg PO QAM 04/29/21 [History] amLODIPine [Norvasc] 10 mg PO QAM 04/29/21 [History] Furosemide [Lasix] 20 mg PO QAM 06/04/21 [History] Lisinopril [Zestril] 10 mg PO BID 06/04/21 [History] Follow up Appointment(s)/Referral(s): Nicolas Mercado DO [STAFF PHYSICIAN] - 2 Weeks Discharge Disposition: HOME SELF-CARE
--- NOTE | 2021-07-27 12:17 | IR ---
Fluoroscopy HISTORY: Pain in leg 34.6 minutes fluoroscopy time supplied to the referring clinician. 45 intraoperative C-arm images do cument the procedure. See dictated report from vascular surgery.
[2021-07-27 12:38] VITALS: RESP 16
[2021-07-27 16:14] VITALS: BP 139/63; PULSE 42
== END 2021-07-27 16:50 | disposition home or self-care (01) ==
LOC: CATHCVL 08:45
PROVIDERS: ATTEND Surgery
DX: I70.213 Atherosclerosis of native arteries of extremities with intermittent claudication, bilateral legs (principal); Z95.820 Peripheral vascular angioplasty status with implants and grafts; I65.23 Occlusion and stenosis of bilateral carotid arteries; I87.2 Venous insufficiency (chronic) (peripheral); Z20.822 Contact with and (suspected) exposure to COVID-19; Z90.49 Acquired absence of other specified parts of digestive tract; R56.9 Unspecified convulsions; Z79.02 Long term (current) use of antithrombotics/antiplatelets; Z79.82 Long term (current) use of aspirin; Z79.899 Other long term (current) drug therapy; Z88.1 Allergy status to other antibiotic agents
CPT/HCPCS: 36247; 75625; 75716; 76937; 87635; C1894 ×3; C1769 ×6; C1725; C1887; C1760; J2250; J2001; J3010; J1644; Q9966

== ENCOUNTER 2021-12-22 07:48 | Emergency (ER) | payer MEDICARE, BC ==
[2021-12-22] MEDS ORDERED: SODIUM CHLORIDE 0.9% 500 ML 500 ML IV ONE (08:03)
--- NOTE | 2021-12-22 08:09 | ED ---
General Adult HPI - General Chief complaint: Weakness Stated complaint: weakness Time Seen by Provider: 12/22/21 07:56 Source: patient, RN notes reviewed, old records reviewed Mode of arrival: wheelchair Limitations: no limitations - History of Present Illness Initial comments: 76-year-old male presenting for evaluation of generalized weakness, chills and sore throat. Patient's symptoms have been present for the past 6 days. He's had some mild dyspnea and cough as well. He complains of a left-sided throat pain. He's had diarrhea and poor appetite. No vomiting. No chest pain. - Related Data Home Medications Medication Instructions Recorded Confirmed Aspirin EC [Ecotrin Low Dose] 81 mg PO DAILY 01/19/16 12/22/21 Atorvastatin [Lipitor] 40 mg PO QAM 01/19/16 12/22/21 Clopidogrel [Plavix] 75 mg PO DAILY 01/19/16 12/22/21 Furosemide [Lasix] 40 mg PO QAM 01/19/16 12/22/21 Insulin Glargine [Lantus Vial] 70 units SQ QAM 01/19/16 12/22/21 Isosorbide Mononitrate ER [Imdur] 30 mg PO QAM 01/19/16 12/22/21 Multivitamins, Thera [Multivitamin 1 tab PO DAILY 01/19/16 12/22/21 (formulary)] Zolpidem [Ambien] 10 mg PO HS PRN 01/19/16 12/22/21 gemfibroziL [Lopid] 600 mg PO BID 01/19/16 12/22/21 metFORMIN HCL [Glucophage] 500 mg PO HS 01/19/16 12/22/21 traZODone HCL [Desyrel] 100 mg PO HS 01/19/16 12/22/21 allopurinoL [Zyloprim] 100 mg PO QAM 11/15/17 12/22/21 Insulin Aspart [NovoLOG] 20 unit SQ BID-W/MEALS 08/17/18 12/22/21 Ezetimibe [Zetia] 10 mg PO QAM 04/29/21 12/22/21 amLODIPine [Norvasc] 10 mg PO QAM 04/29/21 12/22/21 Furosemide [Lasix] 20 mg PO QAM 06/04/21 12/22/21 Lisinopril [Zestril] 10 mg PO BID 06/04/21 12/22/21 DULoxetine HCL [Cymbalta] 60 mg PO DAILY 12/22/21 12/22/21 INSULIN ASPART (NovoLOG) [NovoLOG 10 unit SQ AC-LUNCH 12/22/21 12/22/21 (formulary)] Metoprolol Tartrate [Lopressor] 25 mg PO BID 12/22/21 12/22/21 Super B-Complex 1 tab PO DAILY 12/22/21 12/22/21 Previous Rx's Medication Instructions Recorded Amoxicillin/Potassium Clav 1 tab PO Q12HR 10 Days #20 tab 12/22/21 [Augmentin 875-125 Tablet] Allergies Allergy/AdvReac Type Severity Reaction Status Date / Time ciprofloxacin [From Cipro] Allergy Rash/Hives Verified 12/22/21 09:23 ciprofloxacin HCl Allergy Rash/Hives Verified 12/22/21 09:23 [From Cipro] indomethacin [From Indocin] Allergy Unknown Verified 12/22/21 09:23 indomethacin sodium Allergy Unknown Verified 12/22/21 09:23 [From Indocin] lamotrigine [From Lamictal] Allergy Unknown Verified 12/22/21 09:23 simvastatin [From Vytorin] Allergy Unknown Verified 12/22/21 09:23 Review of Systems ROS Statement: Those systems with pertinent positive or pertinent negative responses have been documented in the HPI. ROS Other: All systems not noted in ROS Statement are negative. Past Medical History Past Medical History: Coronary Artery Disease (CAD), Cancer, Chest Pain / Angina, Diabetes Mellitus, Hearing Disorder / Deafness, Hyperlipidemia, Hypertension, Seizure Disorder, Vascular Disorder Additional Past Medical History / Comment(s): Skin cancer. carotid stenosis. Severe pain with walking in legs. IDDM. last grand mal seizure 2003. insomnia, kidney stones. History of Any Multi-Drug Resistant Organisms: None Reported Past Surgical History: Appendectomy, Coronary Bypass/CABG, Heart Catheterization With Stent Additional Past Surgical History / Comment(s): 05/04/21 arch study/aortogram with runooff. PCI with stents (pt thinks 2 total stents) with last stent placed 03/13/14, angioplasties x 3, 02/19/07 CABG-4 vessel, colonoscopy-normal, kidney stones removed. Rt TCAR 11/13/20. Past Anesthesia/Blood Transfusion Reactions: No Reported Reaction Additional Past Anesthesia/Blood Transfusion Reaction / Comment(s): no hx blood transfusion Date of Last Stent Placement:: 03/13/14 Past Psychological History: Depression Smoking Status: Former smoker Past Alcohol Use History: None Reported Past Drug Use History: None Reported - Past Family History Father Family Medical History: Cancer Additional Family Medical History / Comment(s): Father of leukemia at the age of 67 yrs. Mother Family Medical History: Cancer, Dementia Additional Family Medical History / Comment(s): Mother had retinal cancer. She of dementia at the age of 89yrs. General Exam Limitations: no limitations General appearance: alert, in no apparent distress Head exam: Present: atraumatic, normocephalic Eye exam: Present: normal appearance ENT exam: Present: normal oropharynx, mucous membranes dry Neck exam: Present: normal inspection. Absent: tenderness, meningismus Respiratory exam: Present: normal lung sounds bilaterally. Absent: respiratory distress, wheezes, rales Cardiovascular Exam: Present: regular rate, normal rhythm GI/Abdominal exam: Present: soft. Absent: distended, tenderness, guarding Extremities exam: Present: normal inspection, normal capillary refill. Absent: pedal edema, calf tenderness Neurological exam: Present: alert, oriented X3, CN II-XII intact. Absent: motor sensory deficit Psychiatric exam: Present: normal affect, normal mood Skin exam: Present: warm, dry, intact. Absent: cyanosis, diaphoretic Course Vital Signs 12/22/21 12/22/21 07:50 09:41 Temperature 97 F L Pulse Rate 64 63 Respiratory 18 18 Rate Blood Pressure 131/70 124/56 O2 Sat by Pulse 96 94 L Oximetry EKG Findings - EKG Comments: EKG Findings:: EKG: Sinus bradycardia rate 57, IL interval 143, QRS duration 104, QTC 411, no ST segment elevation. Medical Decision Making - Medical Decision Making 76-year-old male with 5 days of sore throat, subjective fever and chills, diarrhea and mild cough. Patient well-appearing with stable vitals. Workup reveals an x-ray showing the possibility of early pneumonia with a mildly elevated white blood cell count 12.2. He has a lactic acid 2.6 and a CO2 of 17 likely secondary to volume loss from diarrhea. He is given IV fluids. I did re assess patient who is eager for discharge. Given the combination leukocytosis, subjective fever and chills and x-ray with concern for developing pneumonia he will be started on antibiotics. He is given strict return parameters - Lab Data Result diagrams: 12/22/21 08:26 12/22/21 08:26 Lab Results 12/22/21 12/22/21 12/22/21 Range/Units 08:26 08:26 08:26 WBC 12.2 H (3.8-10.6) k/uL RBC 4.22 L (4.30-5.90) m/uL Hgb 13.6 (13.0-17.5) gm/dL Hct 39.0 (39.0-53.0) % MCV 92.5 (80.0-100.0) fL MCH 32.3 (25.0-35.0) pg MCHC 34.9 (31.0-37.0) g/dL RDW 13.1 (11.5-15.5) % Plt Count 245 (150-450) k/uL MPV 7.3 Neutrophils % 74 % Lymphocytes % 13 % Monocytes % 6 % Eosinophils % 3 % Basophils % 1 % Neutrophils # 9.1 H (1.3-7.7) k/uL Lymphocytes # 1.6 (1.0-4.8) k/uL Monocytes # 0.8 (0-1.0) k/uL Eosinophils # 0.4 (0-0.7) k/uL Basophils # 0.1 (0-0.2) k/uL Sodium (137-145) mmol/L Potassium (3.5-5.1) mmol/L Chloride (98-107) mmol/L Carbon Dioxide (22-30) mmol/L Anion Gap mmol/L BUN (9-20) mg/dL Creatinine (0.66-1.25) mg/dL Est GFR (CKD-EPI)AfAm (>60 ml/min/1.73 sqM) Est GFR (CKD-EPI)NonAf (>60 ml/min/1.73 sqM) Glucose (74-99) mg/dL Plasma Lactic Acid Satinder (0.7-2.0) mmol/L Calcium (8.4-10.2) mg/dL Magnesium (1.6-2.3) mg/dL Total Bilirubin (0.2-1.3) mg/dL AST (17-59) U/L ALT (4-49) U/L Alkaline Phosphatase (38-126) U/L Total Protein (6.3-8.2) g/dL Albumin (3.5-5.0) g/dL Urine Color Urine Appearance (Clear) Urine pH (5.0-8.0) Ur Specific H[place]ird (1.001-1.035) Urine Protein (Negative) Urine Glucose (UA) (Negative) Urine Ketones (Negative) Urine Blood (Negative) Urine Nitrite (Negative) Urine Bilirubin (Negative) Urine Urobilinogen (<2.0) mg/dL Ur Leukocyte Esterase (Negative) Urine RBC (0-5) /hpf Urine WBC (0-5) /hpf Urine Mucus (None) /hpf Coronavirus (PCR) Not Detected (Not Detectd) Influenza Type A RNA Not Detected (Not Detectd) Influenza Type B (PCR) Not Detected (Not Detectd) 12/22/21 12/22/21 12/22/21 Range/Units 08:26 08:26 08:26 WBC (3.8-10.6) k/uL RBC (4.30-5.90) m/uL Hgb (13.0-17.5) gm/dL Hct (39.0-53.0) % MCV (80.0-100.0) fL MCH (25.0-35.0) pg MCHC (31.0-37.0) g/dL RDW (11.5-15.5) % Plt Count (150-450) k/uL MPV Neutrophils % % Lymphocytes % % Monocytes % % Eosinophils % % Basophils % % Neutrophils # (1.3-7.7) k/uL Lymphocytes # (1.0-4.8) k/uL Monocytes # (0-1.0) k/uL Eosinophils # (0-0.7) k/uL Basophils # (0-0.2) k/uL Sodium 134 L (137-145) mmol/L Potassium 3.7 (3.5-5.1) mmol/L Chloride 107 (98-107) mmol/L Carbon Dioxide 17 L (22-30) mmol/L Anion Gap 10 mmol/L BUN 19 (9-20) mg/dL Creatinine 1.05 (0.66-1.25) mg/dL Est GFR (CKD-EPI)AfAm 79 (>60 ml/min/1.73 sqM) Est GFR (CKD-EPI)NonAf 69 (>60 ml/min/1.73 sqM) Glucose 108 H (74-99) mg/dL Plasma Lactic Acid Satinder 2.6 H* (0.7-2.0) mmol/L Calcium 8.7 (8.4-10.2) mg/dL Magnesium 1.7 (1.6-2.3) mg/dL Total Bilirubin 0.8 (0.2-1.3) mg/dL AST 37 (17-59) U/L ALT 26 (4-49) U/L Alkaline Phosphatase 87 (38-126) U/L Total Protein 6.4 (6.3-8.2) g/dL Albumin 3.3 L (3.5-5.0) g/dL Urine Color Yellow Urine Appearance Clear (Clear) Urine pH 6.0 (5.0-8.0) Ur Specific [place]ird 1.006 (1.001-1.035) Urine Protein 1+ H (Negative) Urine Glucose (UA) Negative (Negative) Urine Ketones Negative (Negative) Urine Blood Negative (Negative) Urine Nitrite Negative (Negative) Urine Bilirubin Negative (Negative) Urine Urobilinogen <2.0 (<2.0) mg/dL Ur Leukocyte Esterase Negative (Negative) Urine RBC <1 (0-5) /hpf Urine WBC <1 (0-5) /hpf Urine Mucus Rare H (None) /hpf Coronavirus (PCR) (Not Detectd) Influenza Type A RNA (Not Detectd) Influenza Type B (PCR) (Not Detectd) Disposition Clinical Impression: Dehydration, Pneumonia Disposition: HOME SELF-CARE Condition: Fair Instructions (If sedation given, give patient instructions): Community Acquired Pneumonia (ED) Prescriptions: Amoxicillin/Potassium Clav [Augmentin 875-125 Tablet] 1 tab PO Q12HR 10 Days #20 tab Is patient prescribed a controlled substance at d/c from ED?: No Referrals: Josemanuel Pacheco DO [Primary Care Provider] - 1-2 days Time of Disposition: 10:10
[2021-12-22 08:50] LABS: Basophils # (A) 0.1 k/uL (0-0.2); Basophils % (A) 1 %; Eosinophils # (A) 0.4 k/uL (0-0.7); Eosinophils % (A) 3 %; HGB 13.6 gm/dL (13.0-17.5); Lymphocytes # (A) 1.6 k/uL (1.0-4.8); Lymphocytes % (A) 13 %; MCH 32.3 pg (25.0-35.0); MCHC 34.9 g/dL (31.0-37.0); MCV 92.5 fL (80.0-100.0); Mean Platelet Volume 7.3; Monocytes # (A) 0.8 k/uL (0-1.0); Monocytes % (A) 6 %; Neutrophils # (A) 9.1 k/uL (1.3-7.7); Neutrophils % (A) 74 %; Platelet Count 245 k/uL (150-450); RBC 4.22 m/uL (4.30-5.90); RDW 13.1 % (11.5-15.5); WBC 12.2 k/uL (3.8-10.6)
[2021-12-22 08:53] LABS: Albumin 3.3 g/dL (3.5-5.0); Calcium 8.7 mg/dL (8.4-10.2); Magnesium 1.7 mg/dL (1.6-2.3); Potassium 3.7 mmol/L (3.5-5.1); Total Bilirubin 0.8 mg/dL (0.2-1.3); Total Protein 6.4 g/dL (6.3-8.2)
[2021-12-22 10:09] LABS: Appearance,Urine Clear (Clear); Bilirubin,Urine Negative (Negative); Blood,Urine Negative (Negative); Color,Urine Yellow; Glucose,Urine (UA) Negative (Negative); Ketones,Urine Negative (Negative); Leukocyte Esterase,Urine Negative (Negative); Mucus,Urine Rare /hpf; Nitrite,Urine Negative (Negative); Protein,Urine 1+ (Negative); RBC,Urine <1 /hpf (0-5); Specific Gravity,Urine 1.006 (1.001-1.035); Urobilinogen,Urine <2.0 mg/dL (<2.0); WBC,Urine <1 /hpf (0-5)
--- NOTE | 2021-12-22 10:20 | XR ---
EXAMINATION TYPE: XR chest 2V DATE OF EXAM: 12/22/2021 COMPARISON: 11/18/2017 INDICATION: Chills weakness TECHNIQUE: Frontal and lateral views of the chest are obtained. FINDINGS: The heart size is mildly prominent. The pulmonary vasculature is normal. Minimal bibasilar increased lung markings are present. Correlate for subsegmental atelectasis. Early pneumonia could be considered. IMPRESSION: 1. Minimal bibasilar infiltrates may be related to subsegmental atelectasis or early pneumonia. Follo w-up can be performed as clinically indicated. 2. Mild cardiomegaly
[2021-12-22 10:31] LABS: Glucose,Whole Blood 74 mg/dL (75-99)
[2021-12-22 10:45] VITALS: BP 142/56; PULSE 66; RESP 16; TEMP 97.4
== END 2021-12-22 10:44 | disposition home or self-care (01) ==
LOC: EC 07:48
DX: J18.9 Pneumonia, unspecified organism (principal); E86.0 Dehydration; I25.10 Atherosclerotic heart disease of native coronary artery without angina pectoris; E11.9 Type 2 diabetes mellitus without complications; E78.5 Hyperlipidemia, unspecified; I10 Essential (primary) hypertension; F32.A Depression, unspecified; Z20.822 Contact with and (suspected) exposure to COVID-19; Z79.82 Long term (current) use of aspirin; Z79.02 Long term (current) use of antithrombotics/antiplatelets; Z79.4 Long term (current) use of insulin; Z79.84 Long term (current) use of oral hypoglycemic drugs; Z88.1 Allergy status to other antibiotic agents; Z85.828 Personal history of other malignant neoplasm of skin; Z87.442 Personal history of urinary calculi; Z90.49 Acquired absence of other specified parts of digestive tract; Z95.1 Presence of aortocoronary bypass graft; Z87.891 Personal history of nicotine dependence
CPT/HCPCS: 36415; 71046; 80053; 81001; 83605; 83735; 85025; 87502; 87635; 93005; 99285

== ENCOUNTER 2021-12-22 19:52 | Inpatient (IN) | payer MEDICARE, BC ==
--- NOTE | 2021-12-22 20:37 | ED ---
Weakness HPI - General Chief complaint: Weakness Stated complaint: SOB, Weakness Time Seen by Provider: 12/22/21 20:04 Source: patient, EMS Mode of arrival: EMS Limitations: no limitations - History of Present Illness Initial comments: Jason is a pleasant 76-year-old male who was seen and evaluated in the ER earlier today, there is concerned that he had pneumonia he seemed to be doing well and decided to be discharged home as he wasn't requiring oxygen. Upon returning home family reports he's had rapid shallow breathing, he's been very weak and unable to stand he has developed nausea without vomiting and multiple episodes of diarrhea. Patient is too weak to walk around the house is having shortness of breath family doesn't feel he safer being home at this time. - Related Data Home Medications Medication Instructions Recorded Confirmed Aspirin EC [Ecotrin Low Dose] 81 mg PO DAILY 01/19/16 12/22/21 Atorvastatin [Lipitor] 40 mg PO DAILY 01/19/16 12/22/21 Clopidogrel [Plavix] 75 mg PO DAILY 01/19/16 12/22/21 Furosemide [Lasix] 40 mg PO DAILY 01/19/16 12/22/21 Insulin Glargine [Lantus Vial] 70 units SQ DAILY 01/19/16 12/22/21 Isosorbide Mononitrate ER [Imdur] 30 mg PO DAILY 01/19/16 12/22/21 Multivitamins, Thera [Multivitamin 1 tab PO DAILY 01/19/16 12/22/21 (formulary)] Zolpidem [Ambien] 10 mg PO HS PRN 01/19/16 12/22/21 gemfibroziL [Lopid] 600 mg PO BID 01/19/16 12/22/21 metFORMIN HCL [Glucophage] 500 mg PO HS 01/19/16 12/22/21 traZODone HCL [Desyrel] 100 mg PO HS 01/19/16 12/22/21 allopurinoL [Zyloprim] 100 mg PO DAILY 11/15/17 12/22/21 Insulin Aspart [NovoLOG] 20 unit SQ BID-W/MEALS 08/17/18 12/22/21 Ezetimibe [Zetia] 10 mg PO DAILY 04/29/21 12/22/21 amLODIPine [Norvasc] 10 mg PO DAILY 04/29/21 12/22/21 Furosemide [Lasix] 20 mg PO DAILY 06/04/21 12/22/21 Lisinopril [Zestril] 10 mg PO BID 06/04/21 12/22/21 DULoxetine HCL [Cymbalta] 60 mg PO DAILY 12/22/21 12/22/21 INSULIN ASPART (NovoLOG) [NovoLOG 10 unit SQ AC-LUNCH 12/22/21 12/22/21 (formulary)] Metoprolol Tartrate [Lopressor] 25 mg PO BID 12/22/21 12/22/21 Super B-Complex 1 tab PO DAILY 12/22/21 12/22/21 Previous Rx's Medication Instructions Recorded Amoxicillin/Potassium Clav 1 tab PO Q12HR 10 Days #20 tab 12/22/21 [Augmentin 875-125 Tablet] Allergies Allergy/AdvReac Type Severity Reaction Status Date / Time ciprofloxacin [From Cipro] Allergy Rash/Hives Verified 12/22/21 21:51 ciprofloxacin HCl Allergy Rash/Hives Verified 12/22/21 21:51 [From Cipro] indomethacin [From Indocin] Allergy Unknown Verified 12/22/21 21:51 indomethacin sodium Allergy Unknown Verified 12/22/21 21:51 [From Indocin] lamotrigine [From Lamictal] Allergy Unknown Verified 12/22/21 21:51 simvastatin [From Vytorin] Allergy Unknown Verified 12/22/21 21:51 Review of Systems ROS Statement: Those systems with pertinent positive or pertinent negative responses have been documented in the HPI. ROS Other: All systems not noted in ROS Statement are negative. Past Medical History Past Medical History: Coronary Artery Disease (CAD), Cancer, Chest Pain / Angina, Diabetes Mellitus, Hearing Disorder / Deafness, Hyperlipidemia, Hypertension, Pneumonia, Seizure Disorder, Vascular Disorder Additional Past Medical History / Comment(s): Skin cancer. carotid stenosis. Severe pain with walking in legs. IDDM. last grand mal seizure 2003. insomnia, kidney stones. History of Any Multi-Drug Resistant Organisms: None Reported Past Surgical History: Appendectomy, Coronary Bypass/CABG, Heart Catheterization With Stent Additional Past Surgical History / Comment(s): 05/04/21 arch study/aortogram with runooff. PCI with stents (pt thinks 2 total stents) with last stent placed 03/13/14, angioplasties x 3, 02/19/07 CABG-4 vessel, colonoscopy-normal, kidney stones removed. Rt TCAR 11/13/20. Past Anesthesia/Blood Transfusion Reactions: No Reported Reaction Additional Past Anesthesia/Blood Transfusion Reaction / Comment(s): no hx blood transfusion Date of Last Stent Placement:: 03/13/14 Past Psychological History: Depression Smoking Status: Former smoker Past Alcohol Use History: None Reported Past Drug Use History: None Reported - Past Family History Father Family Medical History: Cancer Additional Family Medical History / Comment(s): Father of leukemia at the age of 67 yrs. Mother Family Medical History: Cancer, Dementia Additional Family Medical History / Comment(s): Mother had retinal cancer. She of dementia at the age of 89yrs. General Exam - General Exam Comments Initial Comments: Physical Exam GENERAL: Elderly, Obese HENT: Normocephalic, Atraumatic. EYES: PERRL, EOMI PULMONARY: Crackles in bases CARDIOVASCULAR: There is a regular rate and rhythm without any murmurs gallops or rubs. ABDOMEN: Soft and nontender with normal bowel sounds. SKIN: Skin is clear with no lesions or rashes and otherwise unremarkable. : Deferred NEUROLOGIC: Patient is alert and oriented x3. Moving all extremities spontaneously MUSCULOSKELETAL: Normal extremities with adequate strength and full range of motion. No lower extremity swelling or edema. No calf tenderness. PSYCHIATRIC: Normal psychiatric evaluation. Limitations: no limitations Course Vital Signs 12/22/21 12/22/21 20:16 22:03 Temperature 98.3 F Pulse Rate 91 Respiratory 18 22 Rate Blood Pressure 172/64 O2 Sat by Pulse 93 L Oximetry EKG Findings - EKG Comments: EKG Findings:: EKG obtained due to shortness breath, EKG obtained at 2129, rate is 77 rhythm is sinus, axis normal intervals no acute ST elevations or depressions no evidence of ischemia or infarction. Medical Decision Making - Medical Decision Making The patient was seen and evaluated, patient was negative for influenza A and C OVID today however x-rays were concerning for pneumonia he was discharged home on oral antibiotics but is now weak tachycardic and hypoxic. Repeat labs were obtained, patient's persistent leukocytosis, carbon dioxide is lower likely due to patient's rapid shallow breathing, troponin is detectable likely related to mild hypoxia - Lab Data Result diagrams: 12/22/21 21:00 12/22/21 21:00 Lab Results 12/22/21 12/22/21 12/22/21 Range/Units 21:00 21:00 21:00 WBC 13.1 H (3.8-10.6) k/uL RBC 4.51 (4.30-5.90) m/uL Hgb 14.4 (13.0-17.5) gm/dL Hct 41.9 (39.0-53.0) % MCV 93.0 (80.0-100.0) fL MCH 32.0 (25.0-35.0) pg MCHC 34.5 (31.0-37.0) g/dL RDW 13.2 (11.5-15.5) % Plt Count 259 (150-450) k/uL MPV 7.1 Neutrophils % 87 % Lymphocytes % 3 % Monocytes % 4 % Eosinophils % 3 % Basophils % 0 % Neutrophils # 11.4 H (1.3-7.7) k/uL Lymphocytes # 0.4 L (1.0-4.8) k/uL Monocytes # 0.6 (0-1.0) k/uL Eosinophils # 0.3 (0-0.7) k/uL Basophils # 0.1 (0-0.2) k/uL PT 11.0 (9.0-12.0) sec INR 1.0 (<1.2) APTT 25.0 (22.0-30.0) sec Sodium 134 L (137-145) mmol/L Potassium 4.0 (3.5-5.1) mmol/L Chloride 108 H (98-107) mmol/L Carbon Dioxide 15 L (22-30) mmol/L Anion Gap 11 mmol/L BUN 19 (9-20) mg/dL Creatinine 1.04 (0.66-1.25) mg/dL Est GFR (CKD-EPI)AfAm 80 (>60 ml/min/1.73 sqM) Est GFR (CKD-EPI)NonAf 69 (>60 ml/min/1.73 sqM) Glucose 176 H (74-99) mg/dL Plasma Lactic Acid Satinder (0.7-2.0) mmol/L Calcium 8.1 L (8.4-10.2) mg/dL Magnesium 1.4 L (1.6-2.3) mg/dL Total Bilirubin 0.8 (0.2-1.3) mg/dL AST 34 (17-59) U/L ALT 27 (4-49) U/L Alkaline Phosphatase 99 (38-126) U/L Troponin I (0.000-0.034) ng/mL Total Protein 6.3 (6.3-8.2) g/dL Albumin 3.3 L (3.5-5.0) g/dL 12/22/21 12/22/21 Range/Units 21:00 21:00 WBC (3.8-10.6) k/uL RBC (4.30-5.90) m/uL Hgb (13.0-17.5) gm/dL Hct (39.0-53.0) % MCV (80.0-100.0) fL MCH (25.0-35.0) pg MCHC (31.0-37.0) g/dL RDW (11.5-15.5) % Plt Count (150-450) k/uL MPV Neutrophils % % Lymphocytes % % Monocytes % % Eosinophils % % Basophils % % Neutrophils # (1.3-7.7) k/uL Lymphocytes # (1.0-4.8) k/uL Monocytes # (0-1.0) k/uL Eosinophils # (0-0.7) k/uL Basophils # (0-0.2) k/uL PT (9.0-12.0) sec INR (<1.2) APTT (22.0-30.0) sec Sodium (137-145) mmol/L Potassium (3.5-5.1) mmol/L Chloride (98-107) mmol/L Carbon Dioxide (22-30) mmol/L Anion Gap mmol/L BUN (9-20) mg/dL Creatinine (0.66-1.25) mg/dL Est GFR (CKD-EPI)AfAm (>60 ml/min/1.73 sqM) Est GFR (CKD-EPI)NonAf (>60 ml/min/1.73 sqM) Glucose (74-99) mg/dL Plasma Lactic Acid Satinder 1.8 (0.7-2.0) mmol/L Calcium (8.4-10.2) mg/dL Magnesium (1.6-2.3) mg/dL Total Bilirubin (0.2-1.3) mg/dL AST (17-59) U/L ALT (4-49) U/L Alkaline Phosphatase (38-126) U/L Troponin I 0.045 H* (0.000-0.034) ng/mL Total Protein (6.3-8.2) g/dL Albumin (3.5-5.0) g/dL Disposition Clinical Impression: Pneumonia, History of coronary artery disease Disposition: ADMITTED IP TO THIS HOSP Condition: Stable Referrals: Josemanuel Pacheco DO [Primary Care Provider] - 1-2 days
[2021-12-22 21:11] LABS: Basophils # (A) 0.1 k/uL (0-0.2); Basophils % (A) 0 %; Eosinophils # (A) 0.3 k/uL (0-0.7); Eosinophils % (A) 3 %; HCT 41.9 % (39.0-53.0); HGB 14.4 gm/dL (13.0-17.5); Lymphocytes # (A) 0.4 k/uL (1.0-4.8); Lymphocytes % (A) 3 %; MCHC 34.5 g/dL (31.0-37.0); Mean Platelet Volume 7.1; Monocytes # (A) 0.6 k/uL (0-1.0); Monocytes % (A) 4 %; Neutrophils # (A) 11.4 k/uL (1.3-7.7); Neutrophils % (A) 87 %; Platelet Count 259 k/uL (150-450); RBC 4.51 m/uL (4.30-5.90); RDW 13.2 % (11.5-15.5); WBC 13.1 k/uL (3.8-10.6)
[2021-12-22] MEDS ORDERED: ONDANSETRON 4 MG/2 ML VIAL IVP STA (21:16)
[2021-12-22 21:31] LABS: Albumin 3.3 g/dL (3.5-5.0); Calcium 8.1 mg/dL (8.4-10.2); Magnesium 1.4 mg/dL (1.6-2.3); Total Bilirubin 0.8 mg/dL (0.2-1.3); Total Protein 6.3 g/dL (6.3-8.2)
[2021-12-22] MEDS ORDERED: PNEUMONIA PROTOCOL UTILIZED 1 EACH MISC PO PRN (23:09)
[2021-12-22] MEDS ORDERED: AZITHROMYCIN 500 MG in SODIUM CHLORIDE 0.9% 250 ML IVPB STA (23:15)
[2021-12-23] MEDS ORDERED: Magnesium Replacement Protocol 1 EACH MISC MISCELLANE PRN (08:31)
[2021-12-23] MEDS ORDERED: FUROSEMIDE 40 MG TAB PO SCH (09:00)
[2021-12-23] MEDS: ENOXAPARIN 40 MG/0.4 ML SYRINGE SQ SCH (10:04)
[2021-12-23] MEDS: EZETIMIBE 10 MG TAB PO SCH (10:04)
[2021-12-23] MEDS: CLOPIDOGREL 75 MG TAB PO SCH (10:04)
[2021-12-23] MEDS: amLODIPine 10 MG TAB PO SCH (10:04)
[2021-12-23] MEDS: ATORVASTATIN 40 MG TAB PO SCH (10:04)
[2021-12-23] MEDS: METOPROLOL TARTRATE 25 MG TAB PO SCH ×2 (10:04→20:42)
[2021-12-23] MEDS: MAGNESIUM SULFATE-D5W PMX 1 GM in DEXTROSE/WATER 1 100ML.BAG IVPB SCH ×3 (10:04→13:38)
[2021-12-23] MEDS: ASPIRIN 81 MG PO SCH (10:04)
[2021-12-23] MEDS: ISOSORBIDE MONONITRATE ER 30 MG TAB.ER.24H PO SCH (10:04)
[2021-12-23] MEDS: lisinopriL 10 MG TAB PO SCH ×2 (10:04→20:42)
[2021-12-23 10:11] LABS: Glucose,Whole Blood 162 mg/dL (75-99)
[2021-12-23] MEDS ORDERED: IPRATROPIUM-ALBUTEROL 3 ML NEB INHALATION PRN (11:12)
--- NOTE | 2021-12-23 11:34 | XR ---
EXAMINATION TYPE: XR chest 1V portable DATE OF EXAM: 12/23/2021 Comparison: 12/22/2021 Clinical History: 76-year-old male worsening shortness of breath Findings: Median sternotomy wires and postoperative clips in the mediastinum. Heart mildly enlarged. Hazy perip heral lung densities related to overlying soft tissue. Retrocardiac region underpenetrated and not we ll assessed. Impression: Mild cardiomegaly. Post-CABG changes. Hazy densities appear to relate to technique. Left base underpe netrated and not well assessed. Correlate to exclude mild pulmonary vascular congestion. Otherwise, n o acute process seen.
[2021-12-23] MEDS: AZITHROMYCIN 500 MG TAB PO SCH (11:55)
--- NOTE | 2021-12-23 12:29 | ECHOF ---
Referral Reason: MEASUREMENTS -------- HEIGHT: 180.3 cm WEIGHT: 102.1 kg BP: RVIDd: 3.8 cm (< 3.3) IVSd: 1.3 cm (0.6 - 1.1) LVIDd: 5.4 cm (3.9 - 5.3) LVPWd: 1.6 cm (0.6 - 1.1) IVSs: 2.2 cm LVIDs: 2.5 cm LVPWs: 2.2 cm LAESV Index (A-L): 26.24 ml/m Ao Diam: 3.7 cm (2.0 - 3.7) AV Cusp: 2.0 cm (1.5 - 2.6) LA Diam: 4.0 cm (2.7 - 3.8) MV EXCURSION: 17.701 mm (> 18.000) MV EF SLOPE: 105 mm/s (70 - 150) EPSS: 0.7 cm MV E Gildardo: 1.12 m/s MV DecT: 317 ms MV A Gildardo: 1.13 m/s MV E/A Ratio: 0.99 RAP: 5.00 mmHg RVSP: 30.98 mmHg FINDINGS -------- This was a technically good study. The left ventricular size is normal. There is moderate concentric left ventricular hypertrophy. O verall left ventricular systolic function is normal with, an EF between 55 - 60 %. The diastolic fi lling pattern is normal for the age of the patient 12.06. The right ventricle is mild to moderately enlarged. The left atrial size is normal. Normal LA size by volume 22+/-6 ml/m2. The right atrial size is normal. The aortic valve is trileaflet and appears structurally normal. The mitral valve is normal. The mitral valve leaflets are mildly thickened. Mild mitral annular c alcification present. There is trace mitral regurgitation. The tricuspid valve appears structurally normal. Mild tricuspid regurgitation present. Right vent ricular systolic pressure is normal at < 35 mmHg. Trace/mild (physiologic) pulmonic regurgitation. The aortic root size is normal. Normal inferior vena cava with normal inspiratory collapse consistent with estimated right atrial pre ssure of 5 mmHg. There is no pericardial effusion. CONCLUSIONS -------- 1. The left ventricular size is normal. 2. There is moderate concentric left ventricular hypertrophy. 3. Overall left ventricular systolic function is normal with, an EF between 55 - 60 %. 4. The diastolic filling pattern is normal for the age of the patient 12.06 5. The right ventricle is mild to moderately enlarged. 6. The mitral valve leaflets are mildly thickened. 7. Mild mitral annular calcification present. 8. There is trace mitral regurgitation. 9. Mild tricuspid regurgitation present. 10. Trace/mild (physiologic) pulmonic regurgitation. 11. There is no pericardial effusion. AUTOMATION TECHNOLOGIST: Dayanara Ulloa RDCS
[2021-12-23 13:08] LABS: Glucose,Whole Blood 196 mg/dL (75-99)
[2021-12-23] MEDS: INSULIN ASPART (NovoLOG) 100 UNIT/ML VIAL SQ SCH ×3 (13:38→21:56)
--- NOTE | 2021-12-23 14:10 | P.CNPUL ---
History of Present Illness Consult date: 12/23/21 Requesting physician: Bud Galloway Reason for consult: dyspnea, cough, pneumonia Chief complaint: Shortness of breath, cough, and diarrhea. History of present illness: This is a 76-year-old white male, known history of coronary artery disease, previous CABG 4, history of diabetes, dyslipidemia, hypertension, gout, patient presented to the ER yesterday morning, and he had multiple respiratory symptoms and GI symptoms. Since Monday, the patient has been complaining of shortness of breath, dry cough, weakness, intermittent chills but no documented fever, patient has been also experiencing intermittent episodes of nausea vomiting and nonbloody diarrhea. Chest x-ray in the ER was basically nondiagnostic, patient was discharged home on Augmentin 875 twice a day, however 12 hours later, patient came back to the ER with worsening symptoms and now he is generally weak, more short of breath, and been experiencing more cough and more diarrhea. Chest x-ray done again question left retrocardiac atelectasis or pneumonia, and already vascular congestion. Patient was admitted, and this consult was initiated. I saw the patient in the ER, he was actually on room air during my evaluation, on physical examination he had minimal crackles at the bases especially at the left base, his BNP level is normal, pro-calcitonin level is pending, in the meantime the patient was started on antibiotics in the form of Rocephin and Zithromax for presumptive community-acquired pneumonia. Patient had a bit of leukocytosis with WBC count of 13.1, hemoglobin 14.4, basic metabolic profile was normal except for bicarb of 15, his initial bicarb on his previous presentation was 22. Patient had a non-anion gap metabolic acidosis based on his basic metabolic profile. Renal functioning was improving from today earlier, BUN today is 19 and creatinine 1.04 compared to a creatinine of 1.26 the day prior. Review of Systems Constitutional: Weakness and fatigue. Chills, no fever. Eyes: Negative. Ears: Negative. Ears, negative. Cardiovascular: Negative. Respiratory: As noted in HPI. Gastrointestinal: As noted in HPI, mostly intermittent nausea and vomiting. Genitourinary: Negative. Musculoskeletal: Negative Musculoskeletal: Negative Integumentary: Negative Neurological: Negative Psychiatric: Negative Endocrine: Negative Hematologic/Lymphatic: Negative Past Medical History Past Medical History: Coronary Artery Disease (CAD), Cancer, Chest Pain / Angina, Diabetes Mellitus, Hearing Disorder / Deafness, Hyperlipidemia, Hypertension, Pneumonia, Seizure Disorder, Vascular Disorder Additional Past Medical History / Comment(s): Skin cancer. carotid stenosis. Severe pain with walking in legs. IDDM. last grand mal seizure 2003. insomnia, kidney stones. History of Any Multi-Drug Resistant Organisms: None Reported Past Surgical History: Appendectomy, Coronary Bypass/CABG, Heart Catheterization With Stent Additional Past Surgical History / Comment(s): 05/04/21 arch study/aortogram with runooff. PCI with stents (pt thinks 2 total stents) with last stent placed 03/13/14, angioplasties x 3, 02/19/07 CABG-4 vessel, colonoscopy-normal, kidney stones removed. Rt TCAR 11/13/20. Past Anesthesia/Blood Transfusion Reactions: No Reported Reaction Additional Past Anesthesia/Blood Transfusion Reaction / Comment(s): no hx blood transfusion Date of Last Stent Placement:: 03/13/14 Smoking Status: Former smoker - Past Family History Father Family Medical History: Cancer Additional Family Medical History / Comment(s): Father of leukemia at the age of 67 yrs. Mother Family Medical History: Cancer, Dementia Additional Family Medical History / Comment(s): Mother had retinal cancer. She of dementia at the age of 89yrs. Medications and Allergies Home Medications Medication Instructions Recorded Confirmed Type Aspirin EC [Ecotrin Low Dose] 81 mg PO DAILY 01/19/16 12/22/21 History Atorvastatin [Lipitor] 40 mg PO DAILY 01/19/16 12/22/21 History Clopidogrel [Plavix] 75 mg PO DAILY 01/19/16 12/22/21 History Furosemide [Lasix] 40 mg PO DAILY 01/19/16 12/22/21 History Insulin Glargine [Lantus Vial] 70 units SQ DAILY 01/19/16 12/22/21 History Isosorbide Mononitrate ER [Imdur] 30 mg PO DAILY 01/19/16 12/22/21 History Multivitamins, Thera [Multivitamin 1 tab PO DAILY 01/19/16 12/22/21 History (formulary)] Zolpidem [Ambien] 10 mg PO HS PRN 01/19/16 12/22/21 History gemfibroziL [Lopid] 600 mg PO BID 01/19/16 12/22/21 History metFORMIN HCL [Glucophage] 500 mg PO HS 01/19/16 12/22/21 History traZODone HCL [Desyrel] 100 mg PO HS 01/19/16 12/22/21 History allopurinoL [Zyloprim] 100 mg PO DAILY 11/15/17 12/22/21 History Insulin Aspart [NovoLOG] 20 unit SQ BID-W/MEALS 08/17/18 12/22/21 History Ezetimibe [Zetia] 10 mg PO DAILY 04/29/21 12/22/21 History amLODIPine [Norvasc] 10 mg PO DAILY 04/29/21 12/22/21 History Furosemide [Lasix] 20 mg PO DAILY 06/04/21 12/22/21 History Lisinopril [Zestril] 10 mg PO BID 06/04/21 12/22/21 History Amoxicillin/Potassium Clav 1 tab PO Q12HR 10 Days #20 tab 12/22/21 12/22/21 Rx [Augmentin 875-125 Tablet] DULoxetine HCL [Cymbalta] 60 mg PO DAILY 12/22/21 12/22/21 History INSULIN ASPART (NovoLOG) [NovoLOG 10 unit SQ AC-LUNCH 12/22/21 12/22/21 History (formulary)] Metoprolol Tartrate [Lopressor] 25 mg PO BID 12/22/21 12/22/21 History Super B-Complex 1 tab PO DAILY 12/22/21 12/22/21 History Allergies Allergy/AdvReac Type Severity Reaction Status Date / Time ciprofloxacin [From Cipro] Allergy Rash/Hives Verified 12/22/21 21:51 ciprofloxacin HCl Allergy Rash/Hives Verified 12/22/21 21:51 [From Cipro] indomethacin [From Indocin] Allergy Unknown Verified 12/22/21 21:51 indomethacin sodium Allergy Unknown Verified 12/22/21 21:51 [From Indocin] lamotrigine [From Lamictal] Allergy Unknown Verified 12/22/21 21:51 simvastatin [From Vytorin] Allergy Unknown Verified 12/22/21 21:51 Physical Exam Vitals: Vital Signs Temp Pulse Pulse Resp BP BP Pulse Ox 12/23/21 13:20 97.5 F L 56 L 17 127/65 94 L 12/23/21 07:50 67 20 138/65 95 12/23/21 00:16 99.0 F 70 16 141/61 93 L 12/22/21 22:03 22 12/22/21 20:16 98.3 F 91 18 172/64 93 L Intake and Output 12/22/21 12/23/21 12/23/21 22:59 06:59 14:59 Other: Weight 102.058 kg 102.058 kg Physical Exam: Revealed a 76-year-old white male in no distress. On room air. Head: Atraumatic, normocephalic. HEENT:[Neck is supple.] [No neck masses.] [No thyromegaly.] [No JVD.] Chest: [Symmetrical chest expansion, fine crackles at the bases especially at the left base. Cardiac Exam: [Normal S1 and S2, no S3 gallop, no murmur.] Abdomen: [Soft, nontender, no megaly, no rebound, no guarding, normal bowel sounds.] Extremities: [No clubbing, no edema, no cyanosis.] Neurological Exam: [No focal neurologic deficit.] Alert and oriented 3. Psychiatric: Normal mood, affect and normal mental status examination. Skin: No rashes. Musculoskeletal: No deformities and no limitation in range of motion. Results - Laboratory Findings CBC and BMP: 12/22/21 21:00 12/22/21 21:00 PT/INR, D-dimer PT 11.0 sec (9.0-12.0) 12/22/21 21:00 INR 1.0 (<1.2) 12/22/21 21:00 Abnormal lab findings: Abnormal Labs 12/22/21 12/22/21 12/22/21 21:00 21:00 21:00 WBC 13.1 H Neutrophils # 11.4 H Lymphocytes # 0.4 L Sodium 134 L Chloride 108 H Carbon Dioxide 15 L Glucose 176 H POC Glucose (mg/dL) Calcium 8.1 L Magnesium 1.4 L Troponin I 0.045 H* Albumin 3.3 L 12/23/21 12/23/21 12/23/21 00:15 10:00 13:06 WBC Neutrophils # Lymphocytes # Sodium Chloride Carbon Dioxide Glucose POC Glucose (mg/dL) 162 H 196 H Calcium Magnesium Troponin I 0.040 H* Albumin - Diagnostic Findings Chest x-ray: image reviewed (As noted in HPI.) Assessment and Plan Assessment: Impression: Suspect acute community acquired pneumonia, considering the patient's multiple G I symptoms, would be concerned about possibly Legionella pneumonia hence I'm recommending a urine Legionella antigen. Type 2 diabetes. Coronary artery disease with previous CABG. Benign essential hypertension. Dyslipidemia. History of seizure disorder. History of gout. History of peripheral vessel occlusive disease. History of carotid artery disease requiring surgery/right internal carotid artery. Recommendation: Continue present course of antibiotics. Patient is on Rocephin and Zithromax. Resume home meds. Continue bronchodilators/DuoNeb. Check urine for Legionella antigen We'll continue to follow and repeat chest x-ray/PA lateral in the next 24 hours. Time with Patient: Greater than 30
--- NOTE | 2021-12-23 15:06 | P.CRDCN ---
History of Present Illness History of present illness: HISTORY OF PRESENTING ILLNESS This is a pleasant 76-year-old male past medical history significant for carotid artery disease status post transcarotid artery revascularization, peripheral art karen disease with claudication status post left intervention, sen were intervention, coronary artery disease status post multiple interventions including angioplasty in 1989, 1995, 2007 as well as CABG in 2069 [facility]amud Gonzalez, additional PCI in 2013, hypertension, hyperlipidemia, previous tobacco u se, palpitations with monitoring showing rare PVCs, type 2 diabetes. He follows in the office with Dr. Randle. We have been asked to see in consultation for elevated troponin. Patient recently presented to the hospital this morning and was diagnosed with pneumonia and was discharged home with Augmentin. Patient presents back to the emergency department today due to family concern for patient's rapid shallow breathing, generalized weakness, nausea and diarrhea. Patient also presents with worsening shortness of breath. He denies any chest pain, lightheadedness, dizziness, syncope or near syncope. DIAGNOSTICS EKG reveals sinus rhythm, heart rate 77, no acute ST is abnormalities. Chest xray mild cardiomegaly, question of left retrocardiac atelectasis or pneumonia Laboratory reviewed, troponin 0.042, BNP 342, sodium 132, potassium 4.0, BUN 19, serum creatinine 1.0, COVID-19 negative, WBC 13.1, hemoglobin 14.4, platelets 259 Echocardiogram revealed an EF of 5560%, moderate concentric LVH, no significant wall motion abnormalities Current home cardiac medications include aspirin 80 mg daily, atorvastatin 40 mg daily, Plavix 75 mg daily, Lasix 40 mg daily and 20 mg daily, Imdur 30 mg daily, lisinopril 10 mg twice a day, metoprolol titrate 25 mg twice a day, amlodipine 10 mg daily REVIEW OF SYSTEMS At the time of my exam: CONSTITUTIONAL: Denies fever or chills. CARDIOVASCULAR: Denies chest pain, shortness of breath, orthopnea, PND or palpitations. RESPIRATORY: Denies cough. GASTROINTESTINAL: Denies abdominal pain, diarrhea, constipation, nausea or vomiting. MUSCULOSKELETAL: Denies myalgias. NEUROLOGIC: Denies numbness, tingling, headacbe or weakness. ENDOCRINE: Denies fatigue, weight change, polydipsia or polyurina. GENITOURINARY: Denies burning, hematuria or urgency with micturation. HEMATOLOGIC: Denies history of anemia or bleeding. PHYSICAL EXAMINATION Blood pressure 127/65, heart 56, afebrile, saturations 95% on room air CONSTITUTIONAL: No apparent distress. HEENT: Head is normocephalic. Pupils are equal, round. Sclerae anicteric. Mucous membranes of the mouth are moist. No JVD. No carotid bruit. CHEST EXAMINATION: Lungs are diminished in bases, crackles left base to auscultation. No chest wall tenderness is noted on palpation or with deep breathing. HEART EXAMINATION: Regular rate and rhythm. S1, S2 heard. No murmurs, gallops or rub. ABDOMEN: Soft, nontender. Positive bowel sounds. EXTREMITIES: 2+ peripheral pulses, no lower extremity edema and no calf tenderness. NEUROLOGIC EXAMINATION: Patient is awake, alert and oriented x3. ASSESSMENT Elevated troponin, not indicative of acute coronary syndrome Shortness of breath, possible Pneumonia Carotid artery disease status post transcarotid artery revascularization Peripheral artery disease with claudication status post left intervention, sen were intervention Coronary artery disease status post multiple interventions including angioplasty in 1989, 1995, 2007 as well as CABG in 2069 Mohamud Gonzalez, additional PCI in 2013 Hypertension Hyperlipidemia Previous tobacco use History of palpitations with monitoring showing rare PVCs Type 2 diabetes PLAN Repeat chest xray Echocardiogram revealed an EF of 5560%, moderate concentric LVH, no significant wall motion abnormalities Continue home cardiac medications Recommend pulmonary consult Nurse practitioner note has been reviewed by physician. Signing provider agrees with the documented findings, assessment, and plan of care. Past Medical History Past Medical History: Coronary Artery Disease (CAD), Cancer, Chest Pain / Angina, Diabetes Mellitus, Hearing Disorder / Deafness, Hyperlipidemia, Hypertension, Pneumonia, Seizure Disorder, Vascular Disorder Additional Past Medical History / Comment(s): Skin cancer. carotid stenosis. Severe pain with walking in legs. IDDM. last grand mal seizure 2003. insomnia, kidney stones. History of Any Multi-Drug Resistant Organisms: None Reported Past Surgical History: Appendectomy, Coronary Bypass/CABG, Heart Catheterization With Stent Additional Past Surgical History / Comment(s): 05/04/21 arch study/aortogram with runooff. PCI with stents (pt thinks 2 total stents) with last stent placed 03/13/14, angioplasties x 3, 02/19/07 CABG-4 vessel, colonoscopy-normal, kidney stones removed. Rt TCAR 11/13/20. Past Anesthesia/Blood Transfusion Reactions: No Reported Reaction Additional Past Anesthesia/Blood Transfusion Reaction / Comment(s): no hx blood transfusion Date of Last Stent Placement:: 03/13/14 Past Psychological History: Depression Smoking Status: Former smoker Past Alcohol Use History: None Reported Past Drug Use History: None Reported - Past Family History Father Family Medical History: Cancer Additional Family Medical History / Comment(s): Father of leukemia at the age of 67 yrs. Mother Family Medical History: Cancer, Dementia Additional Family Medical History / Comment(s): Mother had retinal cancer. She of dementia at the age of 89yrs. Medications and Allergies Home Medications Medication Instructions Recorded Confirmed Type Aspirin EC [Ecotrin Low Dose] 81 mg PO DAILY 01/19/16 12/22/21 History Atorvastatin [Lipitor] 40 mg PO DAILY 01/19/16 12/22/21 History Clopidogrel [Plavix] 75 mg PO DAILY 01/19/16 12/22/21 History Furosemide [Lasix] 40 mg PO DAILY 01/19/16 12/22/21 History Insulin Glargine [Lantus Vial] 70 units SQ DAILY 01/19/16 12/22/21 History Isosorbide Mononitrate ER [Imdur] 30 mg PO DAILY 01/19/16 12/22/21 History Multivitamins, Thera [Multivitamin 1 tab PO DAILY 01/19/16 12/22/21 History (formulary)] Zolpidem [Ambien] 10 mg PO HS PRN 01/19/16 12/22/21 History gemfibroziL [Lopid] 600 mg PO BID 01/19/16 12/22/21 History metFORMIN HCL [Glucophage] 500 mg PO HS 01/19/16 12/22/21 History traZODone HCL [Desyrel] 100 mg PO HS 01/19/16 12/22/21 History allopurinoL [Zyloprim] 100 mg PO DAILY 11/15/17 12/22/21 History Insulin Aspart [NovoLOG] 20 unit SQ BID-W/MEALS 08/17/18 12/22/21 History Ezetimibe [Zetia] 10 mg PO DAILY 04/29/21 12/22/21 History amLODIPine [Norvasc] 10 mg PO DAILY 04/29/21 12/22/21 History Furosemide [Lasix] 20 mg PO DAILY 06/04/21 12/22/21 History Lisinopril [Zestril] 10 mg PO BID 06/04/21 12/22/21 History Amoxicillin/Potassium Clav 1 tab PO Q12HR 10 Days #20 tab 12/22/21 12/22/21 Rx [Augmentin 875-125 Tablet] DULoxetine HCL [Cymbalta] 60 mg PO DAILY 12/22/21 12/22/21 History INSULIN ASPART (NovoLOG) [NovoLOG 10 unit SQ AC-LUNCH 12/22/21 12/22/21 History (formulary)] Metoprolol Tartrate [Lopressor] 25 mg PO BID 12/22/21 12/22/21 History Super B-Complex 1 tab PO DAILY 12/22/21 12/22/21 History Allergies Allergy/AdvReac Type Severity Reaction Status Date / Time ciprofloxacin [From Cipro] Allergy Rash/Hives Verified 12/22/21 21:51 ciprofloxacin HCl Allergy Rash/Hives Verified 12/22/21 21:51 [From Cipro] indomethacin [From Indocin] Allergy Unknown Verified 12/22/21 21:51 indomethacin sodium Allergy Unknown Verified 12/22/21 21:51 [From Indocin] lamotrigine [From Lamictal] Allergy Unknown Verified 12/22/21 21:51 simvastatin [From Vytorin] Allergy Unknown Verified 12/22/21 21:51 Physical Exam Vitals: Vital Signs Temp Pulse Resp BP Pulse Ox 12/23/21 07:50 67 20 138/65 95 12/23/21 00:16 99.0 F 70 16 141/61 93 L 12/22/21 22:03 22 12/22/21 20:16 98.3 F 91 18 172/64 93 L Intake and Output 12/22/21 12/23/21 12/23/21 22:59 06:59 14:59 Other: Weight 102.058 kg Results 12/22/21 21:00 12/22/21 21:00 Cardiac Enzymes 12/22/21 12/22/21 12/23/21 Range/Units 21:00 21:00 00:15 AST 34 (17-59) U/L Troponin I 0.045 H* 0.040 H* (0.000-0.034) ng/mL Coagulation 12/22/21 Range/Units 21:00 PT 11.0 (9.0-12.0) sec APTT 25.0 (22.0-30.0) sec CBC 12/22/21 Range/Units 21:00 WBC 13.1 H (3.8-10.6) k/uL RBC 4.51 (4.30-5.90) m/uL Hgb 14.4 (13.0-17.5) gm/dL Hct 41.9 (39.0-53.0) % Plt Count 259 (150-450) k/uL Comprehensive Metabolic Panel 12/22/21 Range/Units 21:00 Sodium 134 L (137-145) mmol/L Potassium 4.0 (3.5-5.1) mmol/L Chloride 108 H (98-107) mmol/L Carbon Dioxide 15 L (22-30) mmol/L BUN 19 (9-20) mg/dL Creatinine 1.04 (0.66-1.25) mg/dL Glucose 176 H (74-99) mg/dL Calcium 8.1 L (8.4-10.2) mg/dL AST 34 (17-59) U/L ALT 27 (4-49) U/L Alkaline Phosphatase 99 (38-126) U/L Total Protein 6.3 (6.3-8.2) g/dL Albumin 3.3 L (3.5-5.0) g/dL Current Medications Generic Name Dose Route Start Last Admin Trade Name Freq PRN Reason Stop Dose Admin Amlodipine Besylate 10 mg 12/23/21 09:00 Amlodipine 10 Mg Tab PO DAILY [facility] Aspirin 81 mg 12/23/21 09:00 Aspirin 81 Mg PO DAILY [facility] Atorvastatin Calcium 40 mg 12/23/21 09:00 Atorvastatin 40 Mg Tab PO DAILY [facility] Clopidogrel Bisulfate 75 mg 12/23/21 09:00 Clopidogrel 75 Mg Tab PO DAILY [facility] Ezetimibe 10 mg 12/23/21 09:00 Ezetimibe 10 Mg Tab PO DAILY [facility] Enoxaparin Sodium 40 mg 12/23/21 09:00 Enoxaparin 40 Mg/0.4 Ml Syringe SQ DAILY [facility] Magnesium Sulfate/Dextrose 1 100 mls @ 100 mls/hr 12/23/21 08:45 gm/ IV Solution IVPB 12/23/21 11:44 Q1H [facility] Isosorbide Mononitrate 30 mg 12/23/21 09:00 Isosorbide Mononitrate Er 30 Mg Tab.Er.24h PO DAILY [facility] Lisinopril 10 mg 12/23/21 09:00 Lisinopril 10 Mg Tab PO BID [facility] Metoprolol Tartrate 25 mg 12/23/21 09:00 Metoprolol Tartrate 25 Mg Tab PO BID [facility] Miscellaneous Information 1 each 12/22/21 23:09 Pneumonia Protocol Utilized 1 Each Misc PO ONCE PRN Per Protocol Miscellaneous Information 1 each 12/23/21 08:31 Magnesium Replacement Protocol 1 Each Misc MISCELLANE DAILY PRN Per Protocol Protocol Intake and Output 12/22/21 12/23/21 12/23/21 22:59 06:59 14:59 Other: Weight 102.058 kg 12/22/21 21:00 12/22/21 21:00
--- NOTE | 2021-12-23 15:27 | P.HPIM ---
History of Present Illness H&P Date: 12/23/21 Chief Complaint: Shortness of breath Patient is a 76-year-old male with a known history of coronary artery disease status post CABG, cardiac cath and stent placement, history of skin cancer, previous history of smoking, diabetes type 2, hearing disorder/deafness, hypertension, hyperlipidemia, vascular disorder and previous history of smoking and other medical problems presents to ER with the complaints of generalized weakness and dry heaves. Patient states that his symptoms started on last Monday and is has been on the bed for the past 4 days. Patient felt very tired. Denied any complaints of fever but he did have chills and sweating. Presents to ER yesterday morning. He did have chest x-ray showed minimal bibasilar infiltrates were related to subsegmental atelectasis or early pneumonia. Upon returning home patient has been having shortness of breath and shallow breathing and felt very nauseous and also multiple episodes of diarrhea. Patient presented back to ER with worsening symptoms. Chest x-ray showed mild cardiomegaly. Post CABG changes. He is a densities appear to relate to technique. Left base underpenetrated and not well necessary. Correlate to exclude mild pulmonary vascular congestion. Otherwise no acute process seen. EKG showed sinus rhythm. Laboratory data showed WBC 12.2 hemoglobin 13.6 and platelets 245 neutrophils 9.1 Sodium 134 potassium 3.7 chloride 107 bicarb is 17 BUN 19 and creatinine 1.05 Lactic acid 2.6 on admission Magnesium 1.7 and repeat was 1.4 Troponin 0.045, 0.040 and albumin 3.3 urinalysis is negative for infection Coronavirus PCR and influenza PCR not detected. Review of Systems Constitutional: Patient does have chills. No fever no chills. Generalized weak ness and tiredness. Abdomen: Patient denied vomiting and diarrhea and abdominal pain. Dry heaves a nd nausea. Cardiovascular: Patient denies any chest pain or short of breath no palpitations. Respiratory: Patient does have dry cough and shortness of breath Neurologic: Patient denied any numbness or tingling headache. Musculoskeletal: Patient denies any complaints of joint swelling or deformity. Skin: Negative Psychiatric: Negative Endocrine: No heat or cold intolerance. No recent weight gain. Genitourinary: No dysuria or hematuria. All other 14 point ROS negative except the above Past Medical History Past Medical History: Coronary Artery Disease (CAD), Cancer, Chest Pain / Angina, Diabetes Mellitus, Hearing Disorder / Deafness, Hyperlipidemia, Hypertension, Pneumonia, Seizure Disorder, Vascular Disorder Additional Past Medical History / Comment(s): Skin cancer. carotid stenosis. Severe pain with walking in legs. IDDM. last grand mal seizure 2003. insomnia, kidney stones. History of Any Multi-Drug Resistant Organisms: None Reported Past Surgical History: Appendectomy, Coronary Bypass/CABG, Heart Catheterization With Stent Additional Past Surgical History / Comment(s): 05/04/21 arch study/aortogram with runooff. PCI with stents (pt thinks 2 total stents) with last stent placed 03/13/14, angioplasties x 3, 02/19/07 CABG-4 vessel, colonoscopy-normal, kidney stones removed. Rt TCAR 11/13/20. Past Anesthesia/Blood Transfusion Reactions: No Reported Reaction Additional Past Anesthesia/Blood Transfusion Reaction / Comment(s): no hx blood transfusion Date of Last Stent Placement:: 03/13/14 Past Psychological History: Depression Smoking Status: Former smoker Past Alcohol Use History: None Reported Past Drug Use History: None Reported - Past Family History Father Family Medical History: Cancer Additional Family Medical History / Comment(s): Father of leukemia at the a ge of 67 yrs. Mother Family Medical History: Cancer, Dementia Additional Family Medical History / Comment(s): Mother had retinal cancer. She of dementia at the age of 89yrs. Medications and Allergies Home Medications Medication Instructions Recorded Confirmed Type Aspirin EC [Ecotrin Low Dose] 81 mg PO DAILY 01/19/16 12/22/21 History Atorvastatin [Lipitor] 40 mg PO DAILY 01/19/16 12/22/21 History Clopidogrel [Plavix] 75 mg PO DAILY 01/19/16 12/22/21 History Furosemide [Lasix] 40 mg PO DAILY 01/19/16 12/22/21 History Insulin Glargine [Lantus Vial] 70 units SQ DAILY 01/19/16 12/22/21 History Isosorbide Mononitrate ER [Imdur] 30 mg PO DAILY 01/19/16 12/22/21 History Multivitamins, Thera [Multivitamin 1 tab PO DAILY 01/19/16 12/22/21 History (formulary)] Zolpidem [Ambien] 10 mg PO HS PRN 01/19/16 12/22/21 History gemfibroziL [Lopid] 600 mg PO BID 01/19/16 12/22/21 History metFORMIN HCL [Glucophage] 500 mg PO HS 01/19/16 12/22/21 History traZODone HCL [Desyrel] 100 mg PO HS 01/19/16 12/22/21 History allopurinoL [Zyloprim] 100 mg PO DAILY 11/15/17 12/22/21 History Insulin Aspart [NovoLOG] 20 unit SQ BID-W/MEALS 08/17/18 12/22/21 History Ezetimibe [Zetia] 10 mg PO DAILY 04/29/21 12/22/21 History amLODIPine [Norvasc] 10 mg PO DAILY 04/29/21 12/22/21 History Furosemide [Lasix] 20 mg PO DAILY 06/04/21 12/22/21 History Lisinopril [Zestril] 10 mg PO BID 06/04/21 12/22/21 History Amoxicillin/Potassium Clav 1 tab PO Q12HR 10 Days #20 tab 12/22/21 12/22/21 Rx [Augmentin 875-125 Tablet] DULoxetine HCL [Cymbalta] 60 mg PO DAILY 12/22/21 12/22/21 History INSULIN ASPART (NovoLOG) [NovoLOG 10 unit SQ AC-LUNCH 12/22/21 12/22/21 History (formulary)] Metoprolol Tartrate [Lopressor] 25 mg PO BID 12/22/21 12/22/21 History Super B-Complex 1 tab PO DAILY 12/22/21 12/22/21 History Allergies Allergy/AdvReac Type Severity Reaction Status Date / Time ciprofloxacin [From Cipro] Allergy Rash/Hives Verified 12/22/21 21:51 ciprofloxacin HCl Allergy Rash/Hives Verified 12/22/21 21:51 [From Cipro] indomethacin [From Indocin] Allergy Unknown Verified 12/22/21 21:51 indomethacin sodium Allergy Unknown Verified 12/22/21 21:51 [From Indocin] lamotrigine [From Lamictal] Allergy Unknown Verified 12/22/21 21:51 simvastatin [From Vytorin] Allergy Unknown Verified 12/22/21 21:51 Physical Exam Vitals: Vital Signs Temp Pulse Resp BP Pulse Ox 12/23/21 07:50 67 20 138/65 95 12/23/21 00:16 99.0 F 70 16 141/61 93 L 12/22/21 22:03 22 12/22/21 20:16 98.3 F 91 18 172/64 93 L Intake and Output 12/22/21 12/23/21 12/23/21 22:59 06:59 14:59 Other: Weight 102.058 kg PHYSICAL EXAMINATION: Patient is lying in the bed comfortably, no acute distress, awake alert and oriented.. HEENT: Normocephalic. Neck is supple. Pupils reactive. Nostrils clear. Oral cavity is moist. Neck reveals no JVD, carotid bruits, or thyromegaly. CHEST EXAMINATION: Trachea is central. Symmetrical expansion. Minimal right- sided wheezing. No rhonchi. Lung sen clear to auscultation and percussion. CARDIAC: Normal S1, S2 with no gallops. No murmurs ABDOMEN: Soft. Bowel sounds normal. No organomegaly. No abdominal bruits. Extremities: reveal no edema. No clubbing or cyanosis Neurologically awake, alert, oriented x3 with well-coordinated movements. No focal deficits noted Skin: No rash or skin lesions. Psychiatric: Coperative. Nonsuicidal Musculoskeletal: No joint swelling or deformity. Normal range of motion. Results CBC & Chem 7: 12/22/21 21:00 12/22/21 21:00 Labs: Abnormal Lab Results - Last 24 Hours (Table) 12/22/21 12/22/21 12/22/21 Range/Units 21:00 21:00 21:00 WBC 13.1 H (3.8-10.6) k/uL Neutrophils # 11.4 H (1.3-7.7) k/uL Lymphocytes # 0.4 L (1.0-4.8) k/uL Sodium 134 L (137-145) mmol/L Chloride 108 H (98-107) mmol/L Carbon Dioxide 15 L (22-30) mmol/L Glucose 176 H (74-99) mg/dL Calcium 8.1 L (8.4-10.2) mg/dL Magnesium 1.4 L (1.6-2.3) mg/dL Troponin I 0.045 H* (0.000-0.034) ng/mL Albumin 3.3 L (3.5-5.0) g/dL 12/23/21 Range/Units 00:15 WBC (3.8-10.6) k/uL Neutrophils # (1.3-7.7) k/uL Lymphocytes # (1.0-4.8) k/uL Sodium (137-145) mmol/L Chloride (98-107) mmol/L Carbon Dioxide (22-30) mmol/L Glucose (74-99) mg/dL Calcium (8.4-10.2) mg/dL Magnesium (1.6-2.3) mg/dL Troponin I 0.040 H* (0.000-0.034) ng/mL Albumin (3.5-5.0) g/dL Thrombosis Risk Factor Assmnt - DVT/VTE Prophylaxis DVT/VTE Prophylaxis: Pharmacologic Prophylaxis ordered Assessment and Plan Assessment: Bibasilar pneumonia. Patient with diarrhea and mild hyponatremia. Rule out Legionella pneumonia. Generalized weakness, dry heaves, shortness of breath and diarrhea secondary to above Mildly elevated troponin level possible demand mismatch. Hypomagnesemia. Replaced. Coronary arteries history of CABG and also stent placement Hypertension Hyperlipidemia Hearing loss/deafness Peripheral vascular disease History of seizure disorder Carotid artery stenosis on the right side. Previous history of smoking DVT prophylaxis with Lovenox subcu Plan Patient will be continued on antibiotics in the form of ceftriaxone and azithromycin. Urine Legionella antigen was ordered. Patient was started back on aspirin, Plavix and metoprolol. Also started back on Lasix. Cardiology and pulmonary was consulted. Oxygen supplementation as needed. DuoNebs as needed. Continue to follow closely. Time with Patient: Greater than 30
[2021-12-23 16:31] LABS: Glucose,Whole Blood 136 mg/dL (75-99)
[2021-12-23] MEDS ORDERED: FUROSEMIDE 20 MG TAB PO SCH (17:00)
[2021-12-23] MEDS: FUROSEMIDE 20 MG TAB PO SCH (17:11)
[2021-12-23] MEDS: ACETAMINOPHEN TAB 325 MG TAB PO PRN (20:59)
[2021-12-24 06:15] LABS: Glucose,Whole Blood 166 mg/dL (75-99)
[2021-12-24] MEDS: INSULIN ASPART (NovoLOG) 100 UNIT/ML VIAL SQ SCH ×4 (06:18→20:45)
[2021-12-24] MEDS: ATORVASTATIN 40 MG TAB PO SCH (08:15)
[2021-12-24] MEDS: FUROSEMIDE 40 MG TAB PO SCH (08:15)
[2021-12-24] MEDS: lisinopriL 10 MG TAB PO SCH ×2 (08:15→20:44)
[2021-12-24] MEDS: ENOXAPARIN 40 MG/0.4 ML SYRINGE SQ SCH (08:15)
[2021-12-24] MEDS: amLODIPine 10 MG TAB PO SCH (08:15)
[2021-12-24] MEDS: AZITHROMYCIN 500 MG TAB PO SCH (08:15)
[2021-12-24] MEDS: ASPIRIN 81 MG PO SCH (08:15)
[2021-12-24] MEDS: CLOPIDOGREL 75 MG TAB PO SCH (08:15)
[2021-12-24] MEDS: METOPROLOL TARTRATE 25 MG TAB PO SCH ×2 (08:15→20:44)
[2021-12-24] MEDS: EZETIMIBE 10 MG TAB PO SCH (08:15)
[2021-12-24] MEDS: ISOSORBIDE MONONITRATE ER 30 MG TAB.ER.24H PO SCH (08:15)
[2021-12-24 09:04] LABS: Basophils # (A) 0.1 k/uL (0-0.2); Basophils % (A) 1 %; Eosinophils # (A) 0.5 k/uL (0-0.7); Eosinophils % (A) 5 %; HCT 41.2 % (39.0-53.0); HGB 13.3 gm/dL (13.0-17.5); Lymphocytes # (A) 1.9 k/uL (1.0-4.8); Lymphocytes % (A) 18 %; MCH 30.6 pg (25.0-35.0); MCHC 32.3 g/dL (31.0-37.0); MCV 94.8 fL (80.0-100.0); Mean Platelet Volume 7.2; Monocytes # (A) 0.6 k/uL (0-1.0); Monocytes % (A) 6 %; Neutrophils # (A) 6.9 k/uL (1.3-7.7); Neutrophils % (A) 67 %; Platelet Count 314 k/uL (150-450); RBC 4.34 m/uL (4.30-5.90); RDW 13.4 % (11.5-15.5); WBC 10.3 k/uL (3.8-10.6)
[2021-12-24 09:29] LABS: African American GFR (CKD) >90 (>60 ml/min/1.73 sqM); Anion Gap 9 mmol/L; Blood Urea Nitrogen 22 mg/dL (9-20); Calcium 7.8 mg/dL (8.4-10.2); Carbon Dioxide 23 mmol/L (22-30); Chloride 107 mmol/L (98-107); Glucose 243 mg/dL (74-99); Non-African American GFR(CKD) 79 (>60 ml/min/1.73 sqM); Potassium 4.5 mmol/L (3.5-5.1); Sodium 139 mmol/L (137-145)
--- NOTE | 2021-12-24 10:28 | P.PN ---
Subjective This is a pleasant 76-year-old male past medical history significant for carotid artery disease status post transcarotid artery revascularization, peripheral artery disease with claudication status post left intervention, sen were intervention, coronary artery disease status post multiple interventions including angioplasty in 1989, 1995, 2007 as well as CABG in 2069 [address] Gonzalez, additional PCI in 2013, hypertension, hyperlipidemia, previous tobacco use, palpitations with monitoring showing rare PVCs, type 2 diabetes. He follows in the office with Dr. Randle. We have been asked to see in consultation for elevated troponin. Patient recently presented to the hospital this morning and was diagnosed with pneumonia and was discharged home with Augmentin. Patient presents back to the emergency department today due to family concern for patient's rapid shallow breathing, generalized weakness, nausea and diarrhea. Patient also presents with worsening shortness of breath. He denies any chest pain, lightheadedness, dizziness, syncope or near syncope. DIAGNOSTICS Chest xray mild cardiomegaly, question of left retrocardiac atelectasis or pneumonia Laboratory reviewed, troponin 0.042, BNP 342, sodium 132, potassium 4.0, BUN 19, serum creatinine 1.0, COVID-19 negative, WBC 13.1, hemoglobin 14.4, platelets 259 Echocardiogram revealed an EF of 5560%, moderate concentric LVH, no significant wall motion abnormalities 12/24/2021 Patient seen and examined at bedside. He is sitting up in the bedside chair with no acute distress. He denies any chest pain or shortness of breath. His breathing has improved since admission. Echocardiogram revealed an EF of 5560%, moderate concentric LVH, no significant wall motion abnormalities She's currently maintained on his home cardiac medications aspirin 81 mg daily, amlodipine 10 mg daily, atorvastatin 40 mg daily, Plavix 75 mg daily, Zestril 10 mg daily, Lasix 20 mg nightly and 40 mg daily, Imdur 30 mg daily, lisinopril 10 mg twice a day, metoprolol titrate 25 mg twice a day PHYSICAL EXAMINATION Vitals reviewed CONSTITUTIONAL: No apparent distress. HEENT: Neck supple No JVD. No carotid bruit. CHEST EXAMINATION: Lungs are diminished in bases. No chest wall tenderness is noted on palpation or with deep breathing. HEART EXAMINATION: Regular rate and rhythm. S1, S2 heard. No murmurs, gallops or rub. ABDOMEN: Soft, nontender. Positive bowel sounds. EXTREMITIES: 2+ peripheral pulses, no lower extremity edema and no calf tenderness. NEUROLOGIC EXAMINATION: Patient is awake, alert and oriented x3. ASSESSMENT Elevated troponin, not indicative of acute coronary syndrome Shortness of breath, possible Pneumonia Carotid artery disease status post transcarotid artery revascularization Peripheral artery disease with claudication status post left intervention, sen were intervention Coronary artery disease status post multiple interventions including angioplasty in 1989, 1995, 2007 as well as CABG in 2069 Mohamud Gonzalez, additional PCI in 2013 Hypertension Hyperlipidemia Previous tobacco use History of palpitations with monitoring showing rare PVCs Type 2 diabetes PLAN Echocardiogram revealed an EF of 5560%, moderate concentric LVH, no significant wall motion abnormalities Continue home cardiac medications No further changes from a cardiology perspective for the elevated troponin. We will follow the patient as needed. Please reconsult if needed. Patient to follow up outpatient with Dr. Randle. Nurse practitioner note has been reviewed by physician. Signing provider agrees with the documented findings, assessment, and plan of care. Objective - Vital Signs Vital signs: Vital Signs Temp 98.4 F 12/24/21 08:00 Pulse 70 12/24/21 08:00 Resp 17 12/24/21 08:00 BP 169/57 12/24/21 08:00 Pulse Ox 94 L 12/24/21 08:00 Intake & Output 12/23/21 12/24/21 12/24/21 18:59 06:59 18:59 Intake Total 120 Output Total 200 Balance -80 Weight 102.058 kg Intake: Oral 120 Output: Urine 200 - Labs CBC & Chem 7: 12/24/21 08:36 12/24/21 08:36 Labs: Abnormal Lab Results - Last 24 Hours (Table) 12/23/21 12/23/21 12/23/21 Range/Units 12:11 13:06 16:26 BUN (9-20) mg/dL Glucose (74-99) mg/dL POC Glucose (mg/dL) 196 H 136 H (75-99) mg/dL Calcium (8.4-10.2) mg/dL Procalcitonin 0.81 H (0.02-0.09) ng/mL 12/24/21 12/24/21 Range/Units 06:07 08:36 BUN 22 H (9-20) mg/dL Glucose 243 H (74-99) mg/dL POC Glucose (mg/dL) 166 H (75-99) mg/dL Calcium 7.8 L (8.4-10.2) mg/dL Procalcitonin (0.02-0.09) ng/mL Microbiology - Last 24 Hours (Table) 12/23/21 00:15 Blood Culture - Preliminary Blood No Growth after 24 hours 12/23/21 00:30 Blood Culture - Preliminary Blood No Growth after 24 hours
--- NOTE | 2021-12-24 11:13 | P.PN ---
Subjective Progress Note Date: 12/24/21 Principal diagnosis: Weakness On 12/24/2021 patient seen in follow-up on selective care unit. Patient was admitted to the hospital with a suspected community acquired pneumonia, he remains on azithromycin and Rocephin for antibiotic coverage. Vital signs have been stable overnight, no worsening dyspnea, he states his breathing is improved, his pro-calcitonin level was increased to 0.81. History of x-ray showed mild pulmonary vascular congestion. Occasional cough without phlegm production, no hemoptysis, no chest discomfort. Still feels weak but was able to tolerate ambulation in the room and in the delgado. Patient is on oral Lasix, is on GI and DVT prophylaxis, no lower extremity swelling. Legionella urine antigen has been sent and pending at this time. Objective - Vital Signs Vital signs: Vital Signs Temp 98.4 F 12/24/21 08:00 Pulse 70 12/24/21 08:00 Resp 17 12/24/21 08:00 BP 169/57 12/24/21 08:00 Pulse Ox 94 L 12/24/21 08:00 Intake & Output 12/23/21 12/24/21 12/24/21 18:59 06:59 18:59 Intake Total 120 480 Output Total 200 Balance -80 480 Weight 102.058 kg Intake: Oral 120 480 Output: Urine 200 - Exam GENERAL EXAM: Alert, very pleasant 76-year-old white male on room air with pulse ox of 94-95%, comfortable in no apparent distress. HEAD: Normocephalic/atraumatic. EYES: Normal reaction of pupils, equal size. Conjunctiva pink, sclera white. NOSE: Clear with pink turbinates. THROAT: No erythema or exudates. NECK: No masses, no JVD, no thyroid enlargement, no adenopathy. CHEST: No chest wall deformity. Symmetrical expansion. LUNGS: Equal air entry with bibasilar crackles CVS: Regular rate and rhythm, normal S1 and S2, no gallops, no murmurs, no rubs ABDOMEN: Soft, nontender. No hepatosplenomegaly, normal bowel sounds, no guarding or rigidity. EXTREMITIES: No clubbing, no edema, no cyanosis, 2+ pulses and upper and lower extremities. MUSCULOSKELETAL: Muscle strength and tone normal. SPINE: No scoliosis or deformity SKIN: No rashes CENTRAL NERVOUS SYSTEM: Alert and oriented -3. No focal deficits, tone is normal in all 4 extremities. PSYCHIATRIC: Alert and oriented -3. Appropriate affect. Intact judgment and insight. - Labs CBC & Chem 7: 12/24/21 08:36 12/24/21 08:36 Labs: Abnormal Lab Results - Last 24 Hours (Table) 12/23/21 12/23/21 12/23/21 Range/Units 12:11 13:06 16:26 BUN (9-20) mg/dL Glucose (74-99) mg/dL POC Glucose (mg/dL) 196 H 136 H (75-99) mg/dL Calcium (8.4-10.2) mg/dL Procalcitonin 0.81 H (0.02-0.09) ng/mL 12/24/21 12/24/21 Range/Units 06:07 08:36 BUN 22 H (9-20) mg/dL Glucose 243 H (74-99) mg/dL POC Glucose (mg/dL) 166 H (75-99) mg/dL Calcium 7.8 L (8.4-10.2) mg/dL Procalcitonin (0.02-0.09) ng/mL Microbiology - Last 24 Hours (Table) 12/23/21 00:15 Blood Culture - Preliminary Blood No Growth after 24 hours 12/23/21 00:30 Blood Culture - Preliminary Blood No Growth after 24 hours Assessment and Plan Plan: Assessment: #1. Acute community acquired pneumonia #2. Generalized weakness #3. Coronary artery disease with previous CABG #4. Benign essential hypertension #5. Dyslipidemia #6. Seizure disorder #7. History of gout #8. History of peripheral vessel occlusive disease #9. History of carotid artery disease requiring surgery Plan: Continue azithromycin and Rocephin Continue bronchodilators Legionella urine antigen is pending Vital signs are stable Follow-up chest x-ray tomorrow Clinical patient is stable, Maintaining stable O2 saturations on room air Afebrile His biggest complaint is ongoing weakness We'll continue to follow I have personally seen and examined the patient, performed the documentation and the assessment and plan as written. Number of minutes spent on the visit: [10] Time with Patient: Less than 30
[2021-12-24 11:34] LABS: Glucose,Whole Blood 189 mg/dL (75-99)
[2021-12-24 16:32] LABS: Glucose,Whole Blood 168 mg/dL (75-99)
[2021-12-24] MEDS: FUROSEMIDE 20 MG TAB PO SCH (16:37)
[2021-12-24 20:41] LABS: Glucose,Whole Blood 201 mg/dL (75-99)
[2021-12-24] MEDS ORDERED: traZODone HCL 100 MG TAB PO SCH (21:00)
[2021-12-24] MEDS: ACETAMINOPHEN TAB 325 MG TAB PO PRN (23:04)
[2021-12-25 01:59] LABS: Glucose,Whole Blood 231 mg/dL (75-99)
[2021-12-25 06:40] LABS: Glucose,Whole Blood 211 mg/dL (75-99)
[2021-12-25] MEDS: INSULIN ASPART (NovoLOG) 100 UNIT/ML VIAL SQ SCH ×2 (06:48→11:48)
[2021-12-25] MEDS: lisinopriL 10 MG TAB PO SCH (10:03)
[2021-12-25] MEDS: amLODIPine 10 MG TAB PO SCH (10:03)
[2021-12-25] MEDS: FUROSEMIDE 40 MG TAB PO SCH (10:04)
[2021-12-25] MEDS: ATORVASTATIN 40 MG TAB PO SCH (10:04)
[2021-12-25] MEDS: ISOSORBIDE MONONITRATE ER 30 MG TAB.ER.24H PO SCH (10:04)
[2021-12-25] MEDS: METOPROLOL TARTRATE 25 MG TAB PO SCH (10:04)
[2021-12-25] MEDS: AZITHROMYCIN 500 MG TAB PO SCH (10:04)
[2021-12-25] MEDS: CLOPIDOGREL 75 MG TAB PO SCH (10:04)
[2021-12-25] MEDS: EZETIMIBE 10 MG TAB PO SCH (10:04)
[2021-12-25] MEDS: ENOXAPARIN 40 MG/0.4 ML SYRINGE SQ SCH (10:04)
[2021-12-25] MEDS: ASPIRIN 81 MG PO SCH (10:04)
[2021-12-25 10:57] VITALS: BP 168/74; PULSE 63; RESP 16; TEMP 97.9
[2021-12-25 11:47] LABS: Glucose,Whole Blood 253 mg/dL (75-99)
--- NOTE | 2021-12-25 11:47 | P.PN ---
Subjective Progress Note Date: 12/25/21 Principal diagnosis: Community acquired pneumonia The patient is seen today 12/25/2021 in follow-up on the regular medical floor. He is currently sitting up in the bedside. Awake and alert in no acute distress. Initially admitted for suspected community-acquired pneumonia. He's been treated with ceftriaxone and azithromycin and has shown progressive improvement. Blood cultures reveal no growth. Blood glucose 211. Objective - Vital Signs Vital signs: Vital Signs Temp 97.9 F 12/25/21 08:00 Pulse 63 12/25/21 08:00 Resp 16 12/25/21 08:00 BP 168/74 12/25/21 08:00 Pulse Ox 96 12/25/21 08:00 Intake & Output 12/24/21 12/25/21 12/25/21 18:59 06:59 18:59 Intake Total 480 10 240 Balance 480 10 240 Intake: IV 10 Invasive Line 1 10 Oral 480 240 Other: Voiding Method Toilet Toilet Urinal Urinal # Voids 2 1 - Exam GENERAL EXAM: Alert, very pleasant 76-year-old male patient, on room air with pulse ox of 96%, comfortable in no apparent distress. HEAD: Normocephalic/atraumatic. EYES: Normal reaction of pupils, equal size. Conjunctiva pink, sclera white. NOSE: Clear with pink turbinates. THROAT: No erythema or exudates. NECK: No masses, no JVD, no thyroid enlargement, no adenopathy. CHEST: No chest wall deformity. Symmetrical expansion. LUNGS: Equal air entry with bibasilar crackles CVS: Regular rate and rhythm, normal S1 and S2, no gallops, no murmurs, no rubs ABDOMEN: Soft, nontender. No hepatosplenomegaly, normal bowel sounds, no guarding or rigidity. EXTREMITIES: No clubbing, no edema, no cyanosis, 2+ pulses and upper and lower extremities. MUSCULOSKELETAL: Muscle strength and tone normal. SPINE: No scoliosis or deformity SKIN: No rashes CENTRAL NERVOUS SYSTEM: No focal deficits, tone is normal in all 4 extremities. PSYCHIATRIC: Alert and oriented -3. Appropriate affect. Intact judgment and insight. - Labs CBC & Chem 7: 12/24/21 08:36 12/24/21 08:36 Labs: Abnormal Lab Results - Last 24 Hours (Table) 12/24/21 12/24/21 12/25/21 Range/Units 16:30 20:33 01:48 POC Glucose (mg/dL) 168 H 201 H 231 H (75-99) mg/dL 12/25/21 Range/Units 06:25 POC Glucose (mg/dL) 211 H (75-99) mg/dL Microbiology - Last 24 Hours (Table) 12/23/21 00:30 Blood Culture - Preliminary Blood No Growth after 48 hours 12/23/21 00:15 Blood Culture - Preliminary Blood No Growth after 48 hours Assessment and Plan Assessment: 1 Acute community acquired pneumonia 2 Generalized weakness 3 Coronary artery disease with previous CABG 4 Benign essential hypertension 5 Dyslipidemia 6 Seizure disorder 7 History of gout 8 History of peripheral vessel occlusive disease 9 History of carotid artery disease requiring surgery Plan: The patient was seen and evaluated Stable and on room air Cleared for discharge from the pulmonary standpoint Complete a course of azithromycin Follow-up in the office in 1-2 weeks' I have personally seen and examined the patient, performed the documentation and the assessment and plan as written. Number of minutes spent on the visit: 10.
== END 2021-12-25 12:52 | disposition home or self-care (01) | DRG 194 ==
LOC: EC 19:52 → 3SCARD 23:09
PROVIDERS: ADMIT Internal Medicine; ATTEND Internal Medicine
DX: J18.9 Pneumonia, unspecified organism (principal); E87.1 Hypo-osmolality and hyponatremia; E87.2 Acidosis; R09.02 Hypoxemia; Z20.822 Contact with and (suspected) exposure to COVID-19; E11.51 Type 2 diabetes mellitus with diabetic peripheral angiopathy without gangrene; E78.5 Hyperlipidemia, unspecified; E83.42 Hypomagnesemia; F32.A Depression, unspecified; G40.409 Other generalized epilepsy and epileptic syndromes, not intractable, without status epilepticus; H91.90 Unspecified hearing loss, unspecified ear; I49.3 Ventricular premature depolarization; M10.9 Gout, unspecified; I10 Essential (primary) hypertension; R19.7 Diarrhea, unspecified; R77.8 Other specified abnormalities of plasma proteins; I25.10 Atherosclerotic heart disease of native coronary artery without angina pectoris; Z79.02 Long term (current) use of antithrombotics/antiplatelets; Z79.4 Long term (current) use of insulin; Z79.82 Long term (current) use of aspirin; Z79.84 Long term (current) use of oral hypoglycemic drugs; Z79.899 Other long term (current) drug therapy; Z80.6 Family history of leukemia; Z80.8 Family history of malignant neoplasm of other organs or systems; Z85.828 Personal history of other malignant neoplasm of skin; Z87.442 Personal history of urinary calculi; Z87.891 Personal history of nicotine dependence; Z95.1 Presence of aortocoronary bypass graft; Z95.5 Presence of coronary angioplasty implant and graft; Z95.9 Presence of cardiac and vascular implant and graft, unspecified; Z88.1 Allergy status to other antibiotic agents; Z88.5 Allergy status to narcotic agent; Z98.890 Other specified postprocedural states; Z87.01 Personal history of pneumonia (recurrent)
CPT/HCPCS: 36415; 71045; 71046; 80048; 80053; 81001; 83605; 83735; 83880; 84145; 84484; 85025; 85610; 85730; 87040; 87449; 87502; 87635; 93005; 93306; 94640; 96365; 96366; 96368; 96375; 99285

== ENCOUNTER 2022-01-19 06:32 | Emergency (ER) | payer MEDICARE, BC ==
[2022-01-19 06:51] VITALS: BP 144/58; TEMP 97
[2022-01-19] MEDS ORDERED: ALTEPLASE 2 MG VIAL (CATHFLO) MISCELLANE ONE (07:04)
--- NOTE | 2022-01-19 07:14 | ED ---
General Adult HPI - General Chief complaint: Recheck/Abnormal Lab/Rx Stated complaint: PICC line issue Time Seen by Provider: 01/19/22 06:45 Source: patient, RN notes reviewed Mode of arrival: ambulatory Limitations: no limitations - History of Present Illness Initial comments: This a 76-year-old male presents emergency Department with chief complaint of PICC line issues. Patient was discharged yesterday from the hospital he was sent home on 2 antibiotics for pneumonia, reported infection on his her. Patient did receive a dose of antibiotics at home line was flushed with heparin daily attempted to use of the home health care nurses morning unable to use it. Patient has no complaints otherwise. - Related Data Home Medications Medication Instructions Recorded Confirmed Aspirin EC [Ecotrin Low Dose] 81 mg PO DAILY 01/19/16 01/10/22 Atorvastatin [Lipitor] 40 mg PO DAILY 01/19/16 01/10/22 Clopidogrel [Plavix] 75 mg PO DAILY 01/19/16 01/10/22 Furosemide [Lasix] 40 mg PO DAILY 01/19/16 01/10/22 Multivitamins, Thera [Multivitamin 1 tab PO DAILY 01/19/16 01/10/22 (formulary)] Zolpidem [Ambien] 10 mg PO HS PRN 01/19/16 01/10/22 gemfibroziL [Lopid] 600 mg PO BID 01/19/16 01/10/22 metFORMIN HCL [Glucophage] 500 mg PO HS 01/19/16 01/10/22 allopurinoL [Zyloprim] 100 mg PO DAILY 11/15/17 01/10/22 Ezetimibe [Zetia] 10 mg PO DAILY 04/29/21 01/10/22 amLODIPine [Norvasc] 10 mg PO DAILY 04/29/21 01/10/22 DULoxetine HCL [Cymbalta] 60 mg PO DAILY 12/22/21 01/10/22 Metoprolol Tartrate [Lopressor] 25 mg PO BID 12/22/21 01/10/22 Super B-Complex 1 tab PO DAILY 12/22/21 01/10/22 Previous Rx's Medication Instructions Recorded Acetaminophen Tab [Tylenol] 650 mg PO Q6HR PRN tab 01/18/22 Chlorthalidone [Hygroton] 25 mg PO DAILY #30 tab 01/18/22 INSULIN ASPART (NovoLOG) [NovoLOG 10 unit SQ AC-TID #0 01/18/22 (formulary)] Insulin Glargine [Lantus Vial] 35 unit SQ BID #0 01/18/22 Isosorbide Mononitrate ER [Imdur] 60 mg PO DAILY #60 tab 01/18/22 Lisinopril [Zestril] 10 mg PO DAILY #0 01/18/22 Pantoprazole [Protonix] 40 mg PO AC-BRKFST #30 tab 01/18/22 Ranolazine [Ranexa] 500 mg PO Q12HR #60 tab 01/18/22 Sennosides-Docusate Sodium 1 each PO BID #14 tab 01/18/22 [Senokot-S] cefTRIAXone [Rocephin] 2 gm IVPB Q12HR each 01/18/22 polyethylene glycoL 3350 [Miralax] 17 gm PO DAILY #14 packet 01/18/22 traZODone HCL [Desyrel] 100 mg PO HS #0 01/18/22 Allergies Allergy/AdvReac Type Severity Reaction Status Date / Time ciprofloxacin [From Cipro] Allergy Rash/Hives Verified 01/10/22 07:45 ciprofloxacin HCl Allergy Rash/Hives Verified 01/10/22 07:45 [From Cipro] indomethacin [From Indocin] Allergy Unknown Verified 01/10/22 07:45 indomethacin sodium Allergy Unknown Verified 01/10/22 07:45 [From Indocin] lamotrigine [From Lamictal] Allergy Unknown Verified 01/10/22 07:45 simvastatin [From Vytorin] Allergy Unknown Verified 01/10/22 07:45 Review of Systems ROS Statement: Those systems with pertinent positive or pertinent negative responses have been documented in the HPI. ROS Other: All systems not noted in ROS Statement are negative. Past Medical History Past Medical History: Coronary Artery Disease (CAD), Cancer, Chest Pain / Angina, Diabetes Mellitus, Hearing Disorder / Deafness, Hyperlipidemia, Hypertension, Pneumonia, Seizure Disorder, Vascular Disorder Additional Past Medical History / Comment(s): Skin cancer. carotid stenosis. Severe pain with walking in legs. IDDM. last grand mal seizure 2003. insomnia, kidney stones. History of Any Multi-Drug Resistant Organisms: None Reported Past Surgical History: Appendectomy, Coronary Bypass/CABG, Heart Catheterization With Stent Additional Past Surgical History / Comment(s): 05/04/21 arch study/aortogram with runooff. PCI with stents (pt thinks 2 total stents) with last stent placed , angioplasties x 3, 02/19/07 CABG-4 vessel, colonoscopy-normal, kidney stones removed. Rt TCAR 11/13/20. Past Anesthesia/Blood Transfusion Reactions: No Reported Reaction Additional Past Anesthesia/Blood Transfusion Reaction / Comment(s): no hx blood transfusion Date of Last Stent Placement:: 03/13/14 Past Psychological History: Depression Smoking Status: Former smoker Past Alcohol Use History: None Reported Past Drug Use History: None Reported - Past Family History Father Family Medical History: Cancer Additional Family Medical History / Comment(s): Father of leukemia at the age of 67 yrs. Mother Family Medical History: Cancer, Dementia Additional Family Medical History / Comment(s): Mother had retinal cancer. She of Alzheimer's dementia at the age of 89yrs. General Exam General appearance: alert, in no apparent distress Head exam: Present: atraumatic, normocephalic, normal inspection Eye exam: Present: normal appearance, PERRL, EOMI. Absent: scleral icterus, conjunctival injection, periorbital swelling ENT exam: Present: normal exam, normal oropharynx, mucous membranes moist Neck exam: Present: normal inspection, full ROM. Absent: tenderness, meningismus, lymphadenopathy Respiratory exam: Present: normal lung sounds bilaterally. Absent: respiratory distress, wheezes, rales, rhonchi, stridor Cardiovascular Exam: Present: regular rate, normal rhythm, normal heart sounds. Absent: systolic murmur, diastolic murmur, rubs, gallop, clicks Extremities exam: Present: other (Right midarm there is noted PICC lineof erythema no tenderness.) Neurological exam: Present: alert Skin exam: Present: warm, dry, intact, normal color. Absent: rash Course Vital Signs 01/19/22 06:44 Temperature 97.0 F L Pulse Rate 61 Respiratory 18 Rate Blood Pressure 144/58 O2 Sat by Pulse 98 Oximetry Medical Decision Making - Medical Decision Making 76-year-old presented for decline, location patient's PICC line was not flushing at home. Patient is luhr LOC was exchanged patient able to flush with no problem. Disposition Clinical Impression: Occlusion of peripherally inserted central catheter (PICC) line Disposition: HOME SELF-CARE Condition: Stable Instructions (If sedation given, give patient instructions): How to Care for Your PICC (Peripherally Inserted Central Catheter) (ED), How to Flush Your PICC (Peripherally Inserted Central Catheter) (ED) Additional Instructions: Please return to the Emergency Department if symptoms worsen or any other concerns. Is patient prescribed a controlled substance at d/c from ED?: No Referrals: Josemanuel Pacheco DO [Primary Care Provider] - 1-2 days Time of Disposition: 08:15
[2022-01-19 09:17] VITALS: PULSE 68; RESP 16
== END 2022-01-19 09:17 | disposition home or self-care (01) ==
LOC: EC 06:32
DX: I25.10 Atherosclerotic heart disease of native coronary artery without angina pectoris (principal); Z79.1 Long term (current) use of non-steroidal anti-inflammatories (NSAID); E11.9 Type 2 diabetes mellitus without complications; I10 Essential (primary) hypertension; Z87.891 Personal history of nicotine dependence; T82.898A Other specified complication of vascular prosthetic devices, implants and grafts, initial encounter; Z88.1 Allergy status to other antibiotic agents; Z88.6 Allergy status to analgesic agent; Z88.8 Allergy status to other drugs, medicaments and biological substances
CPT/HCPCS: 99283; 96374; J1642; J2997

== ENCOUNTER 2022-12-14 06:26 | Day surgery (SDC) | payer MEDICARE, BC ==
[2022-12-13 11:38] VITALS: BMI 32.7
[~2022-12-14 06:26] MED LIST changes: -ALPRAZolam 0.25 MG TAB PO PRN; -ASPIRIN 325 MG TAB PO PRN; -HEPARIN SODIUM,PORCINE 10,000 UNIT in SODIUM CHLORIDE 0.9% 1,000 ML IRRIGATION PRN; -HEPARIN SODIUM,PORCINE 2,500 UNIT in SODIUM CHLORIDE 0.9% 250 ML IRRIGATION PRN; -ZOLPIDEM 5 MG TAB PO PRN
[2022-12-14] MEDS ORDERED: SODIUM CHLORIDE 0.9% 1,000 ML IV ONE (06:36)
[2022-12-14 07:06] LABS: Glucose,Whole Blood 165 mg/dL (70-110)
[2022-12-14 07:08] LABS: Basophils # (A) 0.1 k/uL (0-0.2); Basophils % (A) 1 %; Eosinophils # (A) 0.6 k/uL (0-0.7); Eosinophils % (A) 5 %; HCT 42.4 % (39.0-53.0); HGB 15.1 gm/dL (13.0-17.5); Lymphocytes # (A) 3.5 k/uL (1.0-4.8); Lymphocytes % (A) 31 %; MCHC 35.7 g/dL (31.0-37.0); MCV 89.6 fL (80.0-100.0); Mean Platelet Volume 7.3; Monocytes # (A) 0.8 k/uL (0-1.0); Monocytes % (A) 7 %; Neutrophils % (A) 54 %; Platelet Count 248 k/uL (150-450); RBC 4.74 m/uL (4.30-5.90); RDW 12.9 % (11.5-15.5); WBC 11.1 k/uL (3.8-10.6)
[2022-12-14 07:11] LABS: Calcium 9.6 mg/dL (8.4-10.2); Potassium 4.4 mmol/L (3.5-5.1)
[2022-12-14 07:21] VITALS: RESP 16; TEMP 97.1
[2022-12-14] MEDS ORDERED: SODIUM CHLORIDE 0.9% 500 ML 500 ML with niCARdipine 6.25 MG, NITROGLYCERIN-D5W PMX 0.05... IV ONE ×4 (07:45)
[2022-12-14] MEDS ORDERED: LIDOCAINE 1% INJ 10MG/ML (20 ML MDV) SQ ONE (07:59)
[2022-12-14] MEDS: fentaNYL (PF) 50 MCG/ML 2 ML AMP IV ONE ×2 (08:00→09:24)
[2022-12-14] MEDS: MIDAZOLAM 2 MG/2 ML VIAL IV ONE ×3 (08:00→09:27)
[2022-12-14] MEDS ORDERED: HEPARIN SODIUM 1,000 UN/ML (10ML VL) IV ONE (08:43)
[2022-12-14] MEDS ORDERED: IOPAMIDOL-250 100ML BTL INTRAARTER ONE ×2 (10:46→10:47)
[2022-12-14] MEDS ORDERED: PROTAMINE SULFATE 10 MG/ML 5 ML VIAL IV ONE (10:46)
[2022-12-14] MEDS ORDERED: CLOPIDOGREL 75 MG TAB PO STA (11:23)
--- NOTE | 2022-12-14 11:23 | IR ---
EXAMINATION TYPE: IR stent intravas non coronary DATE OF EXAM: 12/14/2022 CLINICAL HISTORY: Right leg pain TECHNIQUE: Fluoroscopy. COMPARISON: None. FINDINGS: Fluoroscopic guidance was provided during angiogram with stent insertion procedure perform ed by Dr. Mercado. A total of 42.4 minutes of fluoroscopic time was utilized during the procedure an d 867 spot images was acquired. Please refer to procedure note for further details. IMPRESSION: As Above.
[2022-12-14] MEDS ORDERED: ACETAMINOPHEN TAB 325 MG TAB ONE (14:27)
[2022-12-14 17:04] VITALS: BP 153/76; PULSE 60
--- NOTE | 2022-12-16 13:17 | P.OP ---
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% Procedure(s) Performed: Ultrasound guided left common femoral artery Aortogram with bilateral lower extremity runoff Selective right lower extremity angiogram 3rd order Ultrasound guided right anterior tibial artery retrograde access Percutaneous balloon angioplasty of the right superficial femoral artery with 5x40mm Chocolate balloon Percutaneous stent placement at the right superficial femoral artery with [id number] Zilver PTX Percutaneous balloon angioplasty of the left common iliac artery Percutaneous balloon expandable stent placement with 8x39mm VBX stent Conscious sedation 160 minutes Anesthesia: local Surgeon: Nicolas Mercado Estimated Blood Loss (ml): 30 Pathology: none sent Condition: stable Disposition: PACU Indications for Procedure: 77 year old gentleman with history of claudication with previous angiogram in 2020 that demonstrated right SFA stenosis which was unable to be revascularized at that time. He was not having rest pain and therefore no retrograde access was performed. Recently he has been developing rest pain and is unable to ambulate without significant pain and presents today for aortogram and right lower extremity revascularization. Description of Procedure: Operative narrative: After written and informed consent was obtained the patient all risks, benefits and complications were described patient is brought to the [facility] and laid supine position. The area of the left groin and right lower extremity was prepped and draped in usual sterile fashion. Timeout was performed in normal fashion. Utilizing ultrasound the left femoral artery was accessed and a 5-Haitian sheath was placed. 035 Glidewire was then placed into the aorta followed by an RBI catheter. Aortogram was then obtained followed by bilateral lower extremity runoffs. Utilizing the RBI catheter the right iliac was accessed in an up and over fashion. Selective angiogram was then obtained of the right lower extremity demonstrating occlusion of the SFA at the midportion near the Calvin's canal. Patient was given heparin and followed with ACTs. An 035 Glidewire advantage was then placed in an up and over fashion and the 5-Haitian short sheath was removed and replaced with an up and over 5-Haitian sheath. Utilizing 035 Glidewire and quick cross catheter the lesion was attempted to be crossed but was unsuccessful after utilization of multiple catheters and wires. Attention was then placed to the anterior tibial artery and utilizing ultrasound the anterior tibial artery was shown to be patent without any significant disease. The artery was then accessed with a micro- access needle under direct visualization of ultrasound in a retrograde fashion. A 5-Haitian sheath was then placed and selective angiogram was obtained demonstrate a good intraluminal access. An 035 Glidewire was then placed followed by a quick cross catheter and attempt to cross the lesion was again performed. Multiple wires and catheters were utilized in an antegrade as well as a retrograde fashion and ultimately the lesion was crossed in a retrograde fashion. Once the lesion was crossed angiogram was obtained demonstrating good intraluminal access. Due to the tortuosity of the iliac and aorta it was determined to be unable to place and atherectomy device and therefore the lesion was angioplastied with a 5 x 40 mm chocolate balloon. There was improvement of the lumen but ultimately a slight dissection and therefore the area was stented with a Zilver PTX 7 x 100 mm stent. Once completed angiogram was obtained demonstrating improvement of the stenotic area and complete resolution of the stenosis. All guidewires and catheters were then removed and the sheath was removed from the Up & Over fashion but during removal there was some resistance and therefore retrograde angiogram was obtained of the left common iliac artery which demonstrated significant stenosis greater than 70%. Due to the significant stenosis it was determined to perform balloon angioplasty at this area and a guidewire was placed across the lesion and the 5-Haitian sheath was removed and replaced with a 7-Haitian short sheath. Balloon angioplasty was then performed with a 6 x 40 mm balloon and due to the site as well as dense calcification an 8 x 39 mm VBX stent was placed across the lesion. Final angiogram demonstrated patent stents with complete resolution of the stenosis in the left common iliac artery with brisk flow throughout. All guidewires and catheters were then removed the sheath was removed and utilizing a Vascade closure device the access was closed. Pressure was placed for hemostasis for both the groin access as well as the retrograde tibial access. The patient tolerated the procedure well and had palpable DP pulses bilaterally and was sent to recovery.
== END 2022-12-14 16:17 | disposition home or self-care (01) ==
LOC: CATHCVL 06:26
PROVIDERS: ATTEND Surgery
DX: I70.213 Atherosclerosis of native arteries of extremities with intermittent claudication, bilateral legs (principal)
CPT/HCPCS: 37221; 37226; 75625; 75716; 80048; 85025; C1769 ×6; C1894 ×4; C1887; C1725 ×2; C1874 ×2; C1760; J2250; J2720; J2001; J3010; J1644 ×2; Q9966

== ENCOUNTER → 2023-09-19 | Outpatient (CLI) | payer MEDICARE, BC ==
--- NOTE | 2023-09-20 22:42 | MR ---
EXAMINATION TYPE: MR Prostate wo/w con DATE OF EXAM: 09/19/2023 9:07 AM COMPARISON: 01/12/2022. CLINICAL INDICATION:Male, 77 years old with history of R97.20 ELEVATED PROSTATE SPECIFIC ANTIGEN; El evate PSA TECHNIQUE: Multi-planar, multi-sequence imaging of the pelvis is performed prior to and following the uncomplicated administration of bolus intravenous gadolinium. CONTRAST: 10 Gadavist Interpretive Criteria: PI-RADS v2.1 SERUM PSA: 07/31/2023 and 08/30/2023 9.4 SURGICAL PATHOLOGY: No data available. FINDINGS: Prostatic dimensions: 5.1 x 5.8 x 3.6 cm. Ellipsoid Volume:55.76 (PSA density=0.17 ng/mL/mL) CENTRAL GLAND (Central and Transition Zones/CZ+TZ): Multiple bilateral, heterogenous appearing hypertrophic stromal nodules, without suspicious lesion. M edian lobe hypertrophy with protrusion into the base of the bladder. (PI-RADS 2) PERIPHERAL ZONE (PZ): Anterior left peripheral gland mid gland 6 x 6 mm high DWI low ADC low T2 signal lesion (PI-RADS 4) SEMINAL VESICLES (SV): Symmetric and unremarkable. PERIPROSTATIC TISSUES: Unremarkable. LYMPH NODES: No enlarged pelvic lymph node. REMAINING PELVIS: Bladder wall is within normal limits given distention. No abnormal free or organized intrapelvic fluid collection. No pathologic bowel dilation or mural thickening. No hernia visualized OSSEOUS STRUCTURES: No suspicious osseous abnormality. IMPRESSION: 1. PI-RADS 4 lesion left anterior peripheral zone mid gland measuring 6 x 6 mm. 2. Moderate BPH, estimated gland volume 55.76 mL. 3. No suspicious osseous lesion. No lymphadenopathy. No evidence of prostate adenocarcinoma involving the periprostatic tissues.
== END | disposition home or self-care (01) ==
LOC: RADMRIMAIN 07:47
PROVIDERS: ATTEND Urology
DX: N40.0 Benign prostatic hyperplasia without lower urinary tract symptoms (principal); R97.20 Elevated prostate specific antigen [PSA]
CPT/HCPCS: 72197; A9585

== ENCOUNTER → 2023-10-31 | Outpatient (CLI) | payer MEDICARE, BC ==
[2023-10-31 16:45] LABS: Appearance,Urine Clear (Clear); Bilirubin,Urine Negative (Negative); Blood,Urine Negative (Negative); Color,Urine Dark Yellow (Yellow); Ketones,Urine Negative (Negative); Nitrite,Urine Negative (Negative); PH, Urine 5.5; Specific Gravity,Urine 1.015 (1.001-1.030)
[2023-10-31 16:48] LABS: Bacteria,Urine None Seen (None Seen); Basophils # (A) 0.07 X 10*3/uL (0.00-0.10); Basophils % (A) 0.8 %; Eosinophils # (A) 0.33 X 10*3/uL (0.04-0.35); Eosinophils % (A) 3.9 %; HCT 45.5 % (39.6-50.0); HGB 15.5 g/dL (13.0-17.0); Lymphocytes # (A) 2.92 X 10*3/uL (0.90-5.00); Lymphocytes % (A) 34.3 %; MCH 31.4 pg (27.0-32.0); MCHC 34.1 g/dL (32.0-37.0); MCV 92.1 FL (80.0-97.0); Mean Platelet Volume 11.3 FL (9.5-12.2); Monocytes % (A) 8.2 %; NRBC Per 100 WBC 0 X 10*3/uL (0.00-0.01); Neutrophils # (A) 4.47 X 10*3/uL (1.80-7.70); Neutrophils % (A) 52.4 %; Platelet Count 219 X 10*3/uL (140-440); RBC 4.94 X 10*6/uL (4.40-5.60); WBC 8.52 X 10*3/uL (4.50-10.00)
[2023-10-31 16:54] LABS: BUN/Creat Ratio 26.16 Ratio (12.00-20.00); Blood Urea Nitrogen 49.7 mg/dL (9.0-27.0); Carbon Dioxide 23.8 mmol/L (21.6-31.8); Chloride 102 mmol/L (96-109); Glucose 233 mg/dL (70-110); Potassium 4.7 mmol/L (3.5-5.5); Sodium 138 mmol/L (135-145)
== END | disposition home or self-care (01) ==
LOC: LABPAT 09:59
PROVIDERS: ATTEND Urology
DX: Z01.812 Encounter for preprocedural laboratory examination (principal); R97.20 Elevated prostate specific antigen [PSA]
CPT/HCPCS: 36415; 80048; 81001; 85025; 87086

== ENCOUNTER 2023-11-26 18:59 | Emergency (ER) | payer MEDICARE, BC ==
[2023-11-26 19:24] VITALS: TEMP 97.7
--- NOTE | 2023-11-26 19:25 | ED ---
Male Urogenital HPI - General Chief complaint: Urogenital Stated complaint: abd pain Time Seen by Provider: 11/26/23 19:07 Source: patient Mode of arrival: ambulatory - History of Present Illness Initial comments: 77-year-old male presenting with chief complaint of lower abdominal pain. Patient states that this morning he started experiencing cramping along the left lower abdomen. He has had diverticulitis in the past and states that this feels somewhat similar. He is also complaining of right flank pain. He states that this has been ongoing for about 2 weeks. However today the pain seems to be worse. He does have history of kidney stones. States that a few days ago he did have some hematuria, states that he has been drinking a large amount of water to try to help flush out the stone. No dysuria, urgency, frequency. No diarrhea, hematochezia, melena. No nausea or vomiting. No fevers or chills. No chest pain or difficulty breathing. - Related Data Home Medications Medication Instructions Recorded Confirmed Aspirin EC [Ecotrin Low Dose] 81 mg PO DAILY 01/19/16 11/26/23 Atorvastatin [Lipitor] 40 mg PO DAILY 01/19/16 11/26/23 Furosemide [Lasix] 40 mg PO DAILY 01/19/16 11/26/23 Multivitamins, Thera [Multivitamin 1 tab PO DAILY 01/19/16 11/26/23 (formulary)] Zolpidem [Ambien] 10 mg PO HS PRN 01/19/16 11/26/23 gemfibroziL [Lopid] 600 mg PO BID 01/19/16 11/26/23 allopurinoL [Zyloprim] 100 mg PO DAILY 11/15/17 11/26/23 amLODIPine [Norvasc] 10 mg PO DAILY 04/29/21 11/26/23 Super B-Complex 1 tab PO DAILY 12/22/21 11/26/23 Escitalopram Oxalate [Lexapro] 10 mg PO DAILY 12/13/22 11/26/23 Furosemide [Lasix] 20 mg PO DAILY 12/13/22 11/26/23 INSULIN ASPART (NovoLOG) [NovoLOG See Protocol SQ AC-TID 12/13/22 11/26/23 (formulary)] Insulin Glargine [Lantus Vial] 70 unit SQ DAILY 12/13/22 11/26/23 Isosorbide Mononitrate ER [Imdur] 60 mg PO DAILY 11/06/23 11/26/23 Pregabalin [Lyrica] 150 mg PO HS 11/26/23 11/26/23 traZODone HCL [Desyrel] 150 mg PO HS 11/26/23 11/26/23 Previous Rx's Medication Instructions Recorded lisinopriL [Zestril] 10 mg PO DAILY #0 01/18/22 Amoxic-Pot Clav 875-125Mg 1 tab PO Q12HR 10 Days #20 tab 11/26/23 [Augmentin 875-125] Allergies Allergy/AdvReac Type Severity Reaction Status Date / Time ciprofloxacin [From Cipro] Allergy Rash/Hives Verified 11/26/23 20:22 ciprofloxacin HCl Allergy Rash/Hives Verified 11/26/23 20:22 [From Cipro] indomethacin [From Indocin] Allergy Rash/Hives Verified 11/26/23 20:22 indomethacin sodium Allergy Rash/Hives Verified 11/26/23 20:22 [From Indocin] lamotrigine [From Lamictal] Allergy Unknown Verified 11/26/23 20:22 metoprolol [From Lopressor] Allergy Rash/Hives Verified 11/26/23 20:22 simvastatin [From Vytorin] Allergy Rash/Hives Verified 11/26/23 20:22 Review of Systems ROS Statement: Those systems with pertinent positive or pertinent negative responses have been documented in the HPI. ROS Other: All systems not noted in ROS Statement are negative. Past Medical History Past Medical History: Coronary Artery Disease (CAD), Cancer, Chest Pain / Angina, Diabetes Mellitus, Hearing Disorder / Deafness, Hyperlipidemia, Hypertension, Pneumonia, Seizure Disorder, Vascular Disorder Additional Past Medical History / Comment(s): Hx skin cancer. Carotid Stenosis. Severe pain with walking in both legs. 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 Insomnia. Hx kidney stones. Hard of hearing. Varicose veins. History of Any Multi-Drug Resistant Organisms: None Reported Past Surgical History: Appendectomy, Coronary Bypass/CABG, Heart Catheterization With Stent Additional Past Surgical History / Comment(s): 05/04/21 arch study/aortogram with runooff, PCI with stents (pt thinks 2 total stents), angioplasties X3, 6/11/07 CABG-4 vessel, colonoscopy, kidney stones removed, right TCAR 11/13/20. prostate biopsy 11/2023 Past Anesthesia/Blood Transfusion Reactions: No Reported Reaction Additional Past Anesthesia/Blood Transfusion Reaction / Comment(s): No hx blood transfusion. Date of Last Stent Placement:: 03/13/14 Past Psychological History: Depression Smoking Status: Former smoker Past Alcohol Use History: None Reported Past Drug Use History: None Reported - Past Family History Father Family Medical History: Cancer Additional Family Medical History / Comment(s): Father of leukemia at the age of 67 yrs. Mother Family Medical History: Cancer, Dementia Additional Family Medical History / Comment(s): Mother had retinal cancer. She of dementia at the age of 89yrs. Sister(s) Family Medical History: Cancer Additional Family Medical History / Comment(s): Skin cancer. General Exam Limitations: no limitations General appearance: alert, in no apparent distress Head exam: Present: atraumatic, normocephalic Eye exam: Present: normal appearance Neck exam: Present: normal inspection Respiratory exam: Present: normal lung sounds bilaterally. Absent: respiratory distress, wheezes, rales, rhonchi, stridor Cardiovascular Exam: Present: regular rate, normal rhythm, normal heart sounds. Absent: systolic murmur, diastolic murmur, rubs, gallop, clicks GI/Abdominal exam: Present: soft, tenderness, guarding. Absent: distended, rebound, rigid Neurological exam: Present: alert, oriented X3 Psychiatric exam: Present: normal affect, normal mood Skin exam: Present: warm, dry Course Vital Signs 11/26/23 11/26/23 11/26/23 19:02 19:56 21:23 Temperature 97.7 F Pulse Rate 69 58 L 61 Respiratory 18 19 19 Rate Blood Pressure 212/91 176/85 O2 Sat by Pulse 95 92 L 95 Oximetry 11/26/23 22:41 Temperature Pulse Rate 60 Respiratory 18 Rate Blood Pressure 191/83 O2 Sat by Pulse 93 L Oximetry Medical Decision Making - Medical Decision Making Was pt. sent in by a medical professional or institution (, [place], COUNTY EXTENSION AGENT, urgent care, hospital, or intermediate...) When possible be specific @ -No Did you speak to anyone other than the patient for history (EMS, parent, family, police, friend...)? What history was obtained from this source @ -No Did you review nursing and triage notes (agree or disagree)? Why? @ -I reviewed and agree with nursing and triage notes Were old charts reviewed (outside hosp., previous admission, EMS record, old EKG, old radiological studies, urgent care reports/EKG's, intermediate records)? Report findings @ -No old charts were reviewed Differential Diagnosis (chest pain, altered mental status, abdominal pain women, abdominal pain men, vaginal bleeding, weakness, fever, dyspnea, syncope, headache, dizziness, GI bleed, back pain, seizure, CVA, palpatations, mental health, musculoskeletal)? @ -MDM Differential Abdominal Pain Men: Appendicitis, cholecystitis, diverticulosis, ischemic bowel, pancreatitis, hepatitis, UTI, gastroenteritis, AAA, incarcerated hernia, bowel obstruction, constipation, inflammatory bowel, hepatitis, peptic ulcer disease, splenic infarction, perforated viscus, testicular torsion... This is not meant to be an all-inclusive list EKG interpreted by me (3pts min.). @ -As above X-rays interpreted by me (1pt min.). @ -None done CT interpreted by me (1pt min.). @ -CT shows acute uncomplicated sigmoid diverticulitis. Other chronic and l ikely incidental findings. U/S interpreted by me (1pt. min.). @ -None done What testing was considered but not performed or refused? (CT, X-rays, U/S, labs)? Why? @ -None What meds were considered but not given or refused? Why? @ -None Did you discuss the management of the patient with other professionals (professionals i.e. , [place], COUNTY EXTENSION AGENT, lab, RT, psych nurse, home health care social worker, opticianry teacher, teacher, police officer booking, pillowcase turner)? Give summary @ -No Was smoking cessation discussed for >3mins.? @ -No Was critical care preformed (if so, how long)? @ -No Were there social determinants of health that impacted care today? How? (Homelessness, low income, unemployed, alcoholism, drug addiction, transpo rtation, low edu. Level, literacy, decrease access to med. care, group home, rehab)? @ -No Was there de-escalation of care discussed even if they declined (Discuss DNR or withdrawal of care, Hospice)? DNR status @ -No What co-morbidities impacted this encounter? (DM, HTN, Smoking, COPD, CAD, Cancer, CVA, ARF, Chemo, Hep., AIDS, mental health diagnosis, sleep apnea, morbid obesity)? @ -None Was patient admitted / discharged? Hospital course, mention meds given and route, prescriptions, significant lab abnormalities, going to OR and other pertinent info. @ -77-year-old male presenting with chief complaint of lower abdominal cramping, particularly in the left lower quadrant. Also complaining of right- sided flank pain. History and physical exam are conducted. He has left lower quadrant tenderness with guarding. WBC 11.4. Urine shows small blood with [address] shows acute uncomplicated diverticulitis. Patient will be treated with Augmentin. He is educated on today's findings and treatment plan. Discharged home. Follow-up with PCP. Report back to ER with any new or worsening symptoms. Discussed return parameters and answered all questions. Patient conveyed verbal understanding and agreed to the plan. I discussed this case in detail with my attending Dr. Lance Undiagnosed new problem with uncertain prognosis? @ -No Drug Therapy requiring intensive monitoring for toxicity (Heparin, Nitro, Insulin, Cardizem)? @ -No Were any procedures done? @ -No Diagnosis/symptom? @ -Diverticulitis Acute, or Chronic, or Acute on Chronic? @ -Acute Uncomplicated (without systemic symptoms) or Complicated (systemic symptoms)? @ -Uncomplicated Side effects of treatment? @ -No Exacerbation, Progression, or Severe Exacerbation? @ -No Poses a threat to life or bodily function? How? (Chest pain, USA, ID, pneumonia, PE, COPD, DKA, ARF, appy, cholecystitis, CVA, Diverticulitis, Homicidal, Suicidal, threat to staff... and all critical care pts) @ -Unlikely at this time - Lab Data Result diagrams: 11/26/23 19:45 11/26/23 19:45 Lab Results 11/26/23 11/26/23 11/26/23 Range/Units 19:45 19:45 19:45 WBC 11.4 H (3.8-10.6) k/uL RBC 4.61 (4.30-5.90) m/uL Hgb 15.2 (13.0-17.5) gm/dL Hct 42.1 (39.0-53.0) % MCV 91.2 (80.0-100.0) fL MCH 33.0 (25.0-35.0) pg MCHC 36.2 (31.0-37.0) g/dL RDW 13.5 (11.5-15.5) % Plt Count 209 (150-450) k/uL MPV 8.3 Neutrophils % 63 % Lymphocytes % 24 % Monocytes % 7 % Eosinophils % 4 % Basophils % 1 % Neutrophils # 7.1 (1.3-7.7) k/uL Lymphocytes # 2.8 (1.0-4.8) k/uL Monocytes # 0.8 (0-1.0) k/uL Eosinophils # 0.4 (0-0.7) k/uL Basophils # 0.1 (0-0.2) k/uL Sodium 139 (137-145) mmol/L Potassium 3.9 (3.5-5.1) mmol/L Chloride 105 (98-107) mmol/L Carbon Dioxide 21 L (22-30) mmol/L Anion Gap 13 mmol/L BUN 36 H (9-20) mg/dL Creatinine 1.46 H (0.66-1.25) mg/dL Est GFR (CKD-EPI)AfAm 53 (>60 ml/min/1.73 sqM) Est GFR (CKD-EPI)NonAf 45 (>60 ml/min/1.73 sqM) Glucose 220 H (74-99) mg/dL Lactic Ac Sepsis Rflx Plasma Lactic Acid Satinder 2.4 H* (0.7-2.0) mmol/L Calcium 9.3 (8.4-10.2) mg/dL Total Bilirubin 0.7 (0.2-1.3) mg/dL AST 33 (17-59) U/L ALT 27 (4-49) U/L Alkaline Phosphatase 69 (38-126) U/L Total Protein 7.0 (6.3-8.2) g/dL Albumin 4.2 (3.5-5.0) g/dL Amylase 51 (30-110) U/L Lipase 133 (23-300) U/L Urine Color Urine Appearance (Clear) Urine pH (5.0-8.0) Ur Specific [place] (1.001-1.035) Urine Protein (Negative) Urine Glucose (UA) (Negative) Urine Ketones (Negative) Urine Blood (Negative) Urine Nitrite (Negative) Urine Bilirubin (Negative) Urine Urobilinogen (<2.0) mg/dL Ur Leukocyte Esterase (Negative) Urine RBC (0-5) /hpf Urine WBC (0-5) /hpf 11/26/23 11/26/23 Range/Units 20:50 21:25 WBC (3.8-10.6) k/uL RBC (4.30-5.90) m/uL Hgb (13.0-17.5) gm/dL Hct (39.0-53.0) % MCV (80.0-100.0) fL MCH (25.0-35.0) pg MCHC (31.0-37.0) g/dL RDW (11.5-15.5) % Plt Count (150-450) k/uL MPV Neutrophils % % Lymphocytes % % Monocytes % % Eosinophils % % Basophils % % Neutrophils # (1.3-7.7) k/uL Lymphocytes # (1.0-4.8) k/uL Monocytes # (0-1.0) k/uL Eosinophils # (0-0.7) k/uL Basophils # (0-0.2) k/uL Sodium (137-145) mmol/L Potassium (3.5-5.1) mmol/L Chloride (98-107) mmol/L Carbon Dioxide (22-30) mmol/L Anion Gap mmol/L BUN (9-20) mg/dL Creatinine (0.66-1.25) mg/dL Est GFR (CKD-EPI)AfAm (>60 ml/min/1.73 sqM) Est GFR (CKD-EPI)NonAf (>60 ml/min/1.73 sqM) Glucose (74-99) mg/dL Lactic Ac Sepsis Rflx Y Plasma Lactic Acid Satinder (0.7-2.0) mmol/L Calcium (8.4-10.2) mg/dL Total Bilirubin (0.2-1.3) mg/dL AST (17-59) U/L ALT (4-49) U/L Alkaline Phosphatase (38-126) U/L Total Protein (6.3-8.2) g/dL Albumin (3.5-5.0) g/dL Amylase (30-110) U/L Lipase (23-300) U/L Urine Color Colorless Urine Appearance Clear (Clear) Urine pH 6.5 (5.0-8.0) Ur Specific [place] 1.010 (1.001-1.035) Urine Protein 2+ H (Negative) Urine Glucose (UA) Trace H (Negative) Urine Ketones Negative (Negative) Urine Blood Small H (Negative) Urine Nitrite Negative (Negative) Urine Bilirubin Negative (Negative) Urine Urobilinogen <2.0 (<2.0) mg/dL Ur Leukocyte Esterase Negative (Negative) Urine RBC 6 H (0-5) /hpf Urine WBC 1 (0-5) /hpf Disposition Clinical Impression: Diverticulitis Disposition: HOME SELF-CARE Condition: Good Instructions (If sedation given, give patient instructions): Diverticulitis (ED), Diverticulitis Diet (ED) Additional Instructions: Follow-up with PCP. Report back to ER with any new or worsening symptoms. Take medication as prescribed. Prescriptions: Amoxic-Pot Clav 875-125Mg [Augmentin 875-125] 1 tab PO Q12HR 10 Days #20 tab Is patient prescribed a controlled substance at d/c from ED?: No Referrals: None,Stated [Primary Care Provider] - 1-2 days Time of Disposition: 23:21
[2023-11-26] MEDS: SODIUM CHLORIDE 0.9% 1,000 ML IV STA (19:48)
[2023-11-26] MEDS: MORPHINE SULFATE 4 MG/ML SYRINGE IVP STA (19:49)
[2023-11-26 20:26] LABS: Basophils # (A) 0.1 k/uL (0-0.2); Basophils % (A) 1 %; Eosinophils # (A) 0.4 k/uL (0-0.7); Eosinophils % (A) 4 %; HCT 42.1 % (39.0-53.0); HGB 15.2 gm/dL (13.0-17.5); Lymphocytes # (A) 2.8 k/uL (1.0-4.8); Lymphocytes % (A) 24 %; MCHC 36.2 g/dL (31.0-37.0); MCV 91.2 fL (80.0-100.0); Mean Platelet Volume 8.3; Monocytes # (A) 0.8 k/uL (0-1.0); Monocytes % (A) 7 %; Neutrophils # (A) 7.1 k/uL (1.3-7.7); Neutrophils % (A) 63 %; Platelet Count 209 k/uL (150-450); RBC 4.61 m/uL (4.30-5.90); RDW 13.5 % (11.5-15.5); WBC 11.4 k/uL (3.8-10.6)
[2023-11-26 20:44] LABS: ALT 27 U/L (4-49); AST 33 U/L (17-59); African American GFR (CKD) 53 (>60 ml/min/1.73 sqM); Albumin 4.2 g/dL (3.5-5.0); Alkaline Phosphatase 69 U/L (38-126); Amylase 51 U/L (30-110); Anion Gap 13 mmol/L; Blood Urea Nitrogen 36 mg/dL (9-20); Calcium 9.3 mg/dL (8.4-10.2); Carbon Dioxide 21 mmol/L (22-30); Chloride 105 mmol/L (98-107); Glucose 220 mg/dL (74-99); Lipase 133 U/L (23-300); Non-African American GFR(CKD) 45 (>60 ml/min/1.73 sqM); Potassium 3.9 mmol/L (3.5-5.1); Sodium 139 mmol/L (137-145); Total Bilirubin 0.7 mg/dL (0.2-1.3)
[2023-11-26 21:36] LABS: Appearance,Urine Clear (Clear); Bilirubin,Urine Negative (Negative); Blood,Urine Small (Negative); Color,Urine Colorless; Glucose,Urine (UA) Trace (Negative); Ketones,Urine Negative (Negative); Leukocyte Esterase,Urine Negative (Negative); Nitrite,Urine Negative (Negative); PH, Urine 6.5 (5.0-8.0); Protein,Urine 2+ (Negative); RBC,Urine 6 /hpf (0-5); Urobilinogen,Urine <2.0 mg/dL (<2.0); WBC,Urine 1 /hpf (0-5)
[2023-11-26 22:46] VITALS: BP 191/83; PULSE 60; RESP 18
[2023-11-26] MEDS: HYDROmorphone 1 MG/ML 1 ML SYRINGE IVP STA (23:02)
--- NOTE | 2023-11-26 23:10 | CT ---
EXAMINATION TYPE: CT abdomen pelvis w con CT DLP: 1890.4 mGycm, Automated exposure control for dose reduction was used. DATE OF EXAM: 11/26/2023 9:19 PM COMPARISON: CT abdomen and pelvis without contrast 01/12/2022 CLINICAL INDICATION:Male, 77 years old with history of LLQ abdominal pain; LLQ abdominal pain. TECHNIQUE: Axial CT of the abdomen and pelvis. Sagittal and coronal reformats were created on a [employer] workstation. Contrast used:100ml mL of Isovue 370 with IV Contrast, (none if empty) Oral contrast used: without Oral Contrast (none if empty) FINDINGS: LOWER CHEST: Heart appears mildly enlarged. Dense mitral valve calcification. Moderate coronary arter ial calcifications. Partially seen sternotomy wires. Mildly prominent pericardial fat without effusio n. Dependent opacities in the lungs most suggestive of atelectasis. Mild emphysematous changes. ABDOMEN LIVER: No evidence of mass. Calcified granuloma in the inferior right lobe. Portal vein is enhancing. GALLBLADDER AND BILE DUCTS: Unremarkable gallbladder. No biliary ductal dilatation. PANCREAS: Fatty atrophy without acute finding. SPLEEN: Scattered calcified granulomas. ADRENAL GLANDS: Unremarkable. KIDNEYS AND URETERS: Kidneys enhance symmetrically. No evidence of hydronephrosis or visible renal ca lculus. The ureters are unremarkable. A 3.4 cm hypodensity in the mid right kidney anteriorly, and a handful of hypodensities most tiny and the largest 2.5 cm in the inferior left kidney, consistent wit h cysts. PELVIS BLADDER: Bladder is not fully distended, and has a minimally thickened appearing wall. REPRODUCTIVE: Mildly prominent prostate. ABDOMEN & PELVIS STOMACH AND BOWEL: Stomach and small bowel are nondistended, no evidence of obstruction. Scattered fluid in small bowel loops without significant distention or wall pneumatosis. Multiple colonic dive rticula are seen, mostly in the sigmoid region. There is short segment wall thickening and pericoloni c fat stranding in the region of the mid sigmoid which appears centered on a diverticulum. No extralu mary gas or fluid collection. PERITONEUM/RETROPERITONEUM: No evidence of pneumoperitoneum or free fluid. VASCULATURE: Moderate to heavy calcification of the aorta and branches, greatest infrarenal. No AAA. Cannot exclude significant stenoses of the proximal celiac, superior mesenteric, and/or bilateral collin al arteries. Portal veins are enhancing. Splenic vein is patent. Retroaortic left renal vein. LYMPH NODES: No enlarged by CT criteria lymph nodes are seen. SOFT TISSUE/ABDOMINAL WALL: Small to moderate fat-containing bilateral inguinal hernias. MUSCULOSKELETAL: No acute osseous abnormalities. Mild/moderate disc degeneration changes are present throughout the thoracolumbar spine. IMPRESSION: 1. Acute, uncomplicated sigmoid diverticulitis. 2. Other chronic and likely incidental findings, as described above.
[2023-11-26] MEDS: AMOXIC-POT CLAV 875MG STARTER PACK 2 TAB BTL PO STA (23:30)
== END 2023-11-26 23:39 | disposition home or self-care (01) ==
LOC: EC 18:59
DX: K57.32 Diverticulitis of large intestine without perforation or abscess without bleeding (principal); Z87.891 Personal history of nicotine dependence; Z88.1 Allergy status to other antibiotic agents; Z88.8 Allergy status to other drugs, medicaments and biological substances
CPT/HCPCS: 36415; 80053; 82150; 83605; 83690; 85025; 81001; 74177; 99284; 96374; 96375; 96361 ×3; J2270; J1170; Q9967